=== PATIENT | female | born 1990 | race Caucasian/White ===

== ENCOUNTER 2017-01-17 18:11 | Emergency (ER) | payer MEDICAID ==
[~2017-01-17] VITALS: Ht 162.6 cm; Wt 59.0 kg
[~2017-01-17 18:11] MED LIST: AUGMENTIN 875 M1 TAB PO; BACTRIM DS 8001 TA1 PO; BACTRIM DS 8001 TAB PO; CIPRO 500MG TA500 MG PO; DIFLUCAN100 MG PO; FLINTSTONES1 CTB PO; IRON TABLETS325 MG PO; LORTAB 5/500 501 TAB PO; MACROBID 100MG100 MG PO; MOTRIN 400MG.400 MG PO; NICOTINE T21 MG/24 H TD; PERCOCET 5/3251 EACH PO; PHENERGAN 25MG.25 M1 PO; PRENATAL PLUS1 TA1 PO; PYRIDIUM 200MG200 MG PO; PYRIDIUM100 MG PO; SEPTRA DS 800 M1 TAB PO; SULFAMETHOXAZOL1 TA6 PO; TERAZOL 7 VAG C45 GM VG; UTIRA-C TABLET1 TAB PO; VIBRAMYCIN 100100 MG PO; ZOFRAN4 MG PO
--- NOTE | 2017-01-17 18:27 | Emergency Room Report ---
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 N Clinical Suspician of Infection? N Mental Status: 1 - Regular (Normal Baseline) Sepsis Risk:Low Sepsis Risk Have you (or family members/close friends) recently traveled outside the [place]? N If Yes, where/when: Have you had exposure to infectious disease within the past month? N TB? Other? Specify: Arterial vs. arterial bleeding to left wrist s/p accidental puncture wound to left forearm distally (volar aspect) while cleaning out vacuum with a knife. 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 She denies numbness or weakness. Arrives with well perfused hand but actively bleeding. Source patient, family ALLERGIES Coded Allergies: No Known Drug Allergies (09/23/15) History Medical History General CAD? No Angina: No AL: No Hypertension? No Hyperlipidemia? No CHF? No DVT? No PE? No COPD? No Asthma? No Anemia? No GERD? No Gastric ulcers? No GI Bleed? No Hernia? No Thyroid Problems? No Hypothyroidism? No CVA? No Seizures? No Diabetes? No Renal Insuffiency? No End Stage Renal Disease? No UTI? Yes Stones? No BPH? No GB Disease: No Nephritic Syndrome? No Asplenia? No Hepatitis? No Sickle Cell Disease? No Arthritis? No Migraines? No Cataracts? No Glaucoma? No MRSA? No HIV? No TB? No Anxiety? No Depression? No Cancer? 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 No: respiratory distress. Cardiovascular no peripheral edema, normal peripheral pulses Extremities normal range of motion, Pulsatile bleeding to left forearm from a one cm wide puncture wound. No obvious tendon exposure but field too bloody to determine actual depth of wound. No obvious bone exposure. No FB or debris. Distally, digits are well perfused, CR brisk, radial pulse is full. Pressure applied immediately by MD on exam. Strength 5 Upper Ext (L), 5 Upper Ext (R), 5 Lower Ext (L), 5 Lower Ext (R) Neurologic alert, normal exam, no motor/sensory deficits, oriented x 3 Glascow Coma Scale Glascow Coma Scale Response Value EYE response: 4 Spontaneously 4 MOTOR response: 6 OBEYS 6 VERBAL response: 5 Oriented & Converses 5 Total 15 Skin intact (see above) Medical Decision Making LABS/Meds/Orders Pt receiving controlled substance in ED? No Results/Orders Current Medication Orders Sig/Pipe Start time Last Medication Dose Route Stop Time Status Admin Lactated Ringer's 1,000 ML .Q1H1M 01/17 1845 AC IV 01/17 1945 Morphine Sulfate 4 MG ONCE ONE 01/17 1845 DC IV 01/17 1846 Ondansetron HCl 4 MG ONCE ONE 01/17 1845 DC IV 01/17 1846 Sodium Chloride 10 ML PRN PRN 01/17 1845 AC IV 01/18 1841 Sodium Chloride 1,000 ML .Q1H1M 01/17 1845 CAN IV 01/17 1945 Sodium Chloride 10 ML PRN PRN 01/17 1845 DC IV 01/18 1841 Lactated Ringer's 1,000 ML .STK-MED ONE 01/17 1837 DC IV Morphine Sulfate 0 .STK-MED ONE 01/17 1837 DC .ROUTE Ondansetron HCl 0 .STK-MED ONE 01/17 1837 DC .ROUTE Lidocaine/Epinephrine 0 .STK-MED ONE 01/17 1826 DC .ROUTE Consult MD Physician Consult Consult/PCP Dr. Villa with Hand surgery accepting. States d/c tqt; no closure Time Called 1826 Reason Transfer to facility [facility] Progress Notes Date 01/17/17 Time 1846 Comment Bandage loosened as bleeding well controlled now and c/o numbness diffusely; fingers are well perfused with brisk CR prior to transfer with good ROM. Procedures Laceration/Wound Repair Progress Tqt applied by staff was removed by MD prior to transfer, and MD applied trauma four by fours with trauma dressings, Kerlix and Coban. Fingers well perfused with palpable radial pulse; brisk CR, fully sensate. Bleeding controlled. SBP 114, HR in the 80's, IVF, Morphine for pain with Zofran, transfer to via ground ambulance. Departure Departure Time of Disposition 1836 Disposition DC/XFER from ER to [facility] Clinical Impression Primary Impression: Injury of radial artery at forearm level Qualifiers: Encounter type: initial encounter Laterality: left Qualified Code: S55.102A - Unspecified injury of radial artery at forearm level, left arm, initial encounter Secondary Impressions: Puncture wound of forearm, complicated Qualifiers: Encounter type: initial encounter Laterality: left Qualified Code: S51.832A - Puncture wound without foreign body of left forearm, initial encounter Condition STABLE ED Critical Care Critical Care No
--- NOTE | 2017-01-17 18:27 | Emergency Room Report ---
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 N Clinical Suspician of Infection? N Mental Status: 1 - Regular (Normal Baseline) Sepsis Risk:Low Sepsis Risk Have you (or family members/close friends) recently traveled outside the [place]? N If Yes, where/when: Have you had exposure to infectious disease within the past month? N TB? Other? Specify: Arterial vs. arterial bleeding to left wrist s/p accidental puncture wound to left forearm distally (volar aspect) while cleaning out vacuum with a knife. 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 She denies numbness or weakness. Arrives with well perfused hand but actively bleeding. Source patient, family ALLERGIES Coded Allergies: No Known Drug Allergies (09/23/15) History Medical History General CAD? No Angina: No NC: No Hypertension? No Hyperlipidemia? No CHF? No DVT? No PE? No COPD? No Asthma? No Anemia? No GERD? No Gastric ulcers? No GI Bleed? No Hernia? No Thyroid Problems? No Hypothyroidism? No CVA? No Seizures? No Diabetes? No Renal Insuffiency? No End Stage Renal Disease? No UTI? Yes Stones? No BPH? No GB Disease: No Nephritic Syndrome? No Asplenia? No Hepatitis? No Sickle Cell Disease? No Arthritis? No Migraines? No Cataracts? No Glaucoma? No MRSA? No HIV? No TB? No Anxiety? No Depression? No Cancer? 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 No: respiratory distress. Cardiovascular no peripheral edema, normal peripheral pulses Extremities normal range of motion, Pulsatile bleeding to left forearm from a one cm wide puncture wound. No obvious tendon exposure but field too bloody to determine actual depth of wound. No obvious bone exposure. No FB or debris. Distally, digits are well perfused, CR brisk, radial pulse is full. Pressure applied immediately by MD on exam. Strength 5 Upper Ext (L), 5 Upper Ext (R), 5 Lower Ext (L), 5 Lower Ext (R) Neurologic alert, normal exam, no motor/sensory deficits, oriented x 3 Glascow Coma Scale Glascow Coma Scale Response Value EYE response: 4 Spontaneously 4 MOTOR response: 6 OBEYS 6 VERBAL response: 5 Oriented & Converses 5 Total 15 Skin intact (see above) Medical Decision Making LABS/Meds/Orders Pt receiving controlled substance in ED? No Results/Orders Current Medication Orders Sig/Pipe Start time Last Medication Dose Route Stop Time Status Admin Lactated Ringer's 1,000 ML .Q1H1M 01/17 1845 AC IV 01/17 1945 Morphine Sulfate 4 MG ONCE ONE 01/17 1845 DC IV 01/17 1846 Ondansetron HCl 4 MG ONCE ONE 01/17 1845 DC IV 01/17 1846 Sodium Chloride 10 ML PRN PRN 01/17 1845 AC IV 01/18 1841 Sodium Chloride 1,000 ML .Q1H1M 01/17 1845 CAN IV 01/17 1945 Sodium Chloride 10 ML PRN PRN 01/17 1845 DC IV 01/18 1841 Lactated Ringer's 1,000 ML .STK-MED ONE 01/17 1837 DC IV Morphine Sulfate 0 .STK-MED ONE 01/17 1837 DC .ROUTE Ondansetron HCl 0 .STK-MED ONE 01/17 1837 DC .ROUTE Lidocaine/Epinephrine 0 .STK-MED ONE 01/17 1826 DC .ROUTE Consult MD Physician Consult Consult/PCP Dr. Villa with Hand surgery accepting. States d/c tqt; no closure Time Called 1826 Reason Transfer to facility [facility] Progress Notes Date 01/17/17 Time 1846 Comment Bandage loosened as bleeding well controlled now and c/o numbness diffusely; fingers are well perfused with brisk CR prior to transfer with good ROM. Procedures Laceration/Wound Repair Progress Tqt applied by staff was removed by MD prior to transfer, and MD applied trauma four by fours with trauma dressings, Kerlix and Coban. Fingers well perfused with palpable radial pulse; brisk CR, fully sensate. Bleeding controlled. SBP 114, HR in the 80's, IVF, Morphine for pain with Zofran, transfer to via ground ambulance. Departure Departure Time of Disposition 1836 Disposition DC/XFER from ER to [facility] Clinical Impression Primary Impression: Injury of radial artery at forearm level Qualifiers: Encounter type: initial encounter Laterality: left Qualified Code: S55.102A - Unspecified injury of radial artery at forearm level, left arm, initial encounter Secondary Impressions: Puncture wound of forearm, complicated Qualifiers: Encounter type: initial encounter Laterality: left Qualified Code: S51.832A - Puncture wound without foreign body of left forearm, initial encounter Condition STABLE ED Critical Care Critical Care No
--- OUTSIDE RECORDS SUMMARY | 2017-01-17 18:41 | External Medical Summary Rpt | CCD ---
Author Author , REJI Organization REJI Address Unknown Phone [email or web address] Care Team Providers Care Claims Specialist Name Role Phone Cipriano Brown MD, Unavailable Unavailable PEDRO Leung MD, TAY, Unavailable Unavailable JUAN ALBERTO WAYNE Unavailable Unavailable [facility] Unavailable Unavailable DEPARTMENT, [facility] DEPART[facility] Unavailable Unavailable DEPARTMENT, [facility] DEPARTMENT [facility] Unavailable Unavailable [facility], [facility] LARISSA STEPHENSON Unavailable Unavailable LARISSA KAY Unavailable Unavailable RIMMA [facility] Unavailable Unavailable SERVICE, [facility] Unavailable Unavailable SERVICE, [facility] ETHAN BENIGNO, ETHAN Unavailable Unavailable BENIGNO SEDRICK DUBOSE Unavailable Unavailable NAN GOYALE Unavailable Unavailable MARGARITA NAN GOYALE Unavailable Unavailable BEATRIZ BIRD, Unavailable Unavailable BEATRIZ DUBOSE [facility], Unavailable Unavailable [facility] Unavailable Unavailable [place], [facility] Unavailable Unavailable [facility] Unavailable Unavailable LAB, [facility] SWARTZ PRISCILA, SWARTZ PRISCILA Unavailable Unavailable ANA, AVERY, Unavailable Unavailable ANA, [facility] Unavailable [facility]available [facility], Unavailable [facility]available [facility] Beatriz Dubose MD, Unavailable Unavailable Beatriz Dubose MD [facility] Unavailable Unavailable [place], [facility] [place] [facility] Unavailable Unavailable [place], [facility] NATASHA PELAEZ, NATASHA Unavailable Unavailable BENIGNO STARR GUTHRIE, Unavailable Unavailable STARR GUTHRIE MD, Unavailable Unavailable JOS CISNEROS MD Unavailable Unavailable [facility] Unavailable Unavailable [place], [facility] Unavailable Unavailable CENTER, [facility] Unavailable Unavailable INC, [facility] CORDERO JOSE, Unavailable Unavailable CORDERO JOSE CORDERO JOSE, Unavailable Unavailable CORDERO JOSE GONZÁLES JOURDAN, GONZÁLES JOURDAN Unavailable Unavailable GONZÁLES JOURDAN, GONZÁLES JOURDAN Unavailable Unavailable [facility], Unavailable Unavailable [facility] JEN JAY, Unavailable Unavailable JEN JYA MD, Unavailable Unavailable RIGO Moreira MD Unavailable Unavailable [facility], Unavailable Unavailable [facility] RODRIGUEZ, SHIELA L, Unavailable Unavailable RODRIGUEZ, SHIELA L TIN BARRERA, Unavailable Unavailable TIN BARRERA QUINTERO MAYNOR, QUINTERO Unavailable Unavailable MAYNOR Dean Guthrie MD, Unavailable Unavailable Dean Guthrie MD [facility], Unavailable Unavailable [facility] Unavailable Unavailable SERVICES, [facility] KADEN MCBRIDE, KADEN MCBRIDE Unavailable Unavailable Michael GAINES, Unavailable Unavailable Michael GAINES [facility] PRISCILA SWARTZ MD Unavailable Unavailable CONSULTING [facility], PRISCILA SWARTZ MD CONSULTING [facility] Unavailable Unavailable EMS, [facility] Unavailable Unavailable EMS, [facility], Unavailable Unavailable [facility], [facility] Unavailable Unavailable LAB, [facility] FERN JACOBSEN PERRY, Unavailable Unavailable [facility] WILLETT [facility], Unavailable Unavailable [facility], Unavailable Unavailable [facility], [id number], Unavailable Unavailable [id number] Unavailable Unavailable [id number] [address] [id number], [facility] [address] [address] [id number] [facility], Unavailable Unavailable [facility] REBECA CRISTY, Unavailable Unavailable SCHULSTAD, CRISTY JENA DALE, JENA DALE Unavailable Unavailable SOKAN BAB, SOKAN BAB Unavailable Unavailable SOTINGEANU ANISA, Unavailable Unavailable SOTINGEANU AN[facility] ROMULOANNA ESTRADA, Unavailable Unavailable ANNA SEBASTIAN, Unavailable Unavailable [facility] OLMOS, LUCRETIA Unavailable Unavailable NICKOLAS [facility], [facility] Unavailable Unavailable [facility] Unavailable Unavailable #591, [facility] # Unavailable Unavailable [id number], [facility] # [id number] MAINE JONES, MAINE JONES Unavailable Unavailable MAURICIO MARIANO, Unavailable Unavailable MAURICIO MARIANO, ANIKA Unavailable Unavailable [facility] Unavailable Unavailable [facility] [place], [facility] [place] Purpose Continuity of Care Document - 04-21-2007 through 2016 Problems Code Diagnosis DOS Provider Status [id number] HIGH RISK 06-08-2016 [facility] L [facility] [id number] UNS OPEN 09-23-2015 [facility], TOES PLLC W/DAMAGE NAIL INITIAL R1030 LOWER 06-11-2015 [facility] ABDOMINAL [facility], PAIN PLLC UNSPECIFIED Z720 TOBACCO USE 06-11-2015 [facility] Z23 ENCOUNTER 04-22-2015 [facility] IMMUNIZATIO DEPARTMENT N 74263 PAIN IN 11-22-2014 [facility] [place] [facility] ANKLE AND FOOT 35175 UNSPECIFIED 11-22-2014 [facility] SITE OF N EMERGENCY ANKLE PHYS SPRAIN AND STRAIN E8859 FALL FROM 11-22-2014 [facility] OTHER N EMERGENCY SLIPPING PHYS TRIPPING OR STUMBLING 59444 PREV C/S 05-13-2014 [facility] DELIV DELIV PHYSICIANS W/WO GROUP MENTION ANTPRTM COND 74583 C/S DELIV 05-13-2014 [facility] W/O INDICAT PHYSICIANS DELIV W/WO GROUP ANTPRTM COND V252 STERILIZATI 05-13-2014 [facility] ON PHYSICIANS GROUP V270 OUTCOME OF 05-13-2014 [facility] DELIVERY PHYSICIANS SINGLE GROUP LIVEBORN 06987 THREATENED 05-10-2014 [facility] PREMATURE PHYSICIANS LABOR GROUP ANTEPARTUM V221 SUPERVISION 04-18-2014 [facility] [place] [address] ABNORMAL 03-08-2014 [facility] MATERNAL PHYSICIANS GLUCOSE GROUP TOLERANCE ANTEPARTUM 04060 OTHER 02-15-2014 SEKOU ARGUELLO MD LABOR, ANTEPARTUM 650 NORMAL 02-14-2014 [facility] V154 PERS HX 01-26-2014 [facility] AL TRAUMA PRS [facility] 5990 URINARY 01-18-2014 [facility]CT [facility]ICIANS INFECTION LA SITE NOT SPECIFIED 7881 DYSURIA 01-09-2014 [facility] V0481 NEED 01-09-2014 [facility] VACCINATION PS &INOCULATIO N FLU V283 ENCOUNTER 01-02-2014 [facility] ROUTINE SCREEN MALFORMATIO N ULTRASONIC 2768 HYPOPOTASSE 12-20-2013 [facility] PHYS 2859 UNSPECIFIED 12-20-2013 [facility] N EMERGENCY PHYS 18108 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 75211 MATERNAL 12-20-2013 [facility], N EMERGENCY ANTEPARTUM PHYS 63333 ABDOMINAL 12-20-2013 [facility] PAIN, N EMERGENCY PERIUMBILIC PHYS 86537 PAP SMER 12-10-2013 [facility] C[facility] W/ATYPICAL SQUAMOUS CELLS UNDET 37039 CERV HIGH 12-10-2013 [facility] RISK [facility] PAPILLOMAVI GINA DNA TEST POS V7242 12-10-2013 SEDRICK [facility] EXAMINATION OR TEST POSITIVE RESULT V745 SCREENING 12-10-2013 [facility] EXAMINATION LLC FOR VENEREAL DISEASE V2503 ENCOUNTER 11-15-2013 [facility] CONTRACEPT DEPARTMENT CNSL&PRESCR IPTION 6970 CONTACT 08-08-2013 LARISSA SHANKS DERMATITIS& OTHER ECZ[place] DUE UNSPEC CAUSE 7869 OTHER AND 07-18-2013 [facility] HYPERLIPIDE SYLVESTER 4011 ESSENTIAL 07-18-2013 [place] HYPERTENSIO [facility] N, [facility] 53072 OTHER 07-18-2013 [place] [facility] V242 ROUTINE 07-18-2013 [facility] FOLLOW-UP V2502 GENERAL 07-18-2013 [facility] CNSL HEALTH INITIATION DEPARTMENT OTH CONTRACEPT MEASURES V2689 OTHER 07-18-2013 [facility] SPECIFIED HEALTH PROCREATIVE DEPARTMENT MANAGEMENT 7245 UNSPECIFIED 03-30-2013 RIGO LYNN BACKACHE 8472 LUMBAR 03-30-2013 [facility] STRAIN STEVEN 9599 INJURY 03-30-2013 RIGO LYNN OTHER AND UNSPECIFIED UNSPECIFIED SITE V692 PROBLEMS 01-23-2013 [facility] RELATED TO HIGH-RISK SEXUAL BEHAVIOR 654.21 654.21 PREV 01-11-2013 [facility] MENT ANTEPART COND V27.0 V27.0 01-11-2013 [facility] LIVEBORN 16770 MATERNAL RX 12-26-2012 [facility] HEALTH COMPL PG CLINIC OF CB/PP [place]NS [place] EOC 616.10 616.10 09-26-2012 [place] VAGINITIS [facility] 57808 UNSPECIFIED 09-26-2012 [facility] VULVOVAGINI TIS 646.63 646.63 09-26-2012 [place] INFECTION-A [place] [address] INFECTIONS 09-26-2012 [facility] GENITOURINA INC RY TRACT ANTEPARTUM 75993 OTH CURRENT 09-26-2012 [facility] CLASSIFIABL SERVICES E ELSW ANTPRTM 692.71 692.71 09-06-2012 [facility] 57986 CONTACT 09-06-2012 [facility] DERMATITIS& EMERGENCY OTHER SERVICES ECZEMA DUE TO SUNBURN 643.03 643.03 MILD 06-17-2012 [facility] HYPEREMESIS [facility] -ANTEPAR 51952 MILD 06-17-2012 [facility]PEREMESIS EMERGENCY GRAVIDARUM SERVICES UNSPEC EPIS CARE 47579 MILD 06-17-2012 [facility] HOSP GRAVIDARUM INC ANTEPARTUM 39957 OTHER 05-25-2012 [facility] HEALTH COMPLICATIO CLINIC OF N [place] ANTEPARTUM 02996 PAP SMER 05-17-2012 PATHOLOGY & CERV W/LW CYTOLOGY GRADE LAB SQUAMOUS INTRAEPITH LES 2662 OTHER 02-08-2011 [facility]X [facility] DEFICIENCIE CENTER S V016 CONTACT 02-08-2011 [facility] WITH OR HEALTH EXPOSURE TO CENTER VENEREAL DISEASES V5869 LONG-TERM 01-28-2011 PRISCILA SWARTZ (CURRENT) USE OF CONSULTING OTHER SRV MEDICATIONS 5206 DISTURBANCE 11-11-2010 CONSUELO Barnes IN TOOTH JOSE ERUPTION 5952 UNSPECIFIED 08-15-2010 [facility] 87188 OPEN WOUND 06-28-2010 [facility] LIP WITHOUT EMERGENCY MENTION SERVICES COMPLICATIO N E9060 DOG BITE 06-28-2010 [facility] 462 ACUTE 01-05-2010 [facility]NG[facility] MEM HOSP INC V069 NEED PROPH 12-10-2009 [facility] W/UNSPEC CENTER COMB VACCINE 7048 OTHER 08-14-2009 PRAVEENA BARRERA DISEASE OF HAIR&HAIR FOLLICLES 6262 EXCESSIVE 03-24-2009 [facility] OF MENSTRUATIO GERI N [facility] 1320 PEDICULUS 11-11-2008 TIERA BARRERA 5589 OTH&UNSPEC 04-01-2008 [facility] NONINFECTIO [facility] GASTROENTER ITIS&COLITI S 57591 ABDOMINAL 04-01-2008 [place] [facility] V251 ENCOUNTER 02-12-2008 [facility] INSERT/[facility] JULES IU CLINIC OF CONTRACEPTI CYNRICARDO VE DEVICE [facility] V7231 ROUTINE 02-02-2008 [facility] GYNECOLOGIC HEALTH AL CLINIC OF EXAMINATION [place] [facility] V7388 SPECIAL SCR 02-02-2008 [facility] [place] [facility] EXAMINATION OTH SPEC CHLAMYDIAL DZ V762 SCREENING 02-02-2008 [facility] [place] [facility] MALIGNANT NEOPLASM OF THE CERVIX 61058 OTHER 12-01-2007 [facility] MATERNAL ANESTH OF VENEREAL THE DISEASES [facility] WITH DELIVERY 47033 OTH SPEC 12-01-2007 [facility] INDICAT HEALTH CARE/INTERV CLINIC OF EN RELATED [place] L&D DELIV [facility] V220 SUPERVISION 12-01-2007 [facility]EN[facility] OF NORMAL HEALTH FIRST CLINIC OF [place] [facility] V3000 SINGLE 12-01-2007 [facility] W/O 02618 POOR 11-09-2007 [facility] OF ANTPRTM [place] COND/COMP PLL 61872 SPOTTING 05-04-2007 [facility] COMP [facility]ALTH CLIN[facility] OF ANTEPARTUM [place] COND/COMP PLL 71509 UNSPECIFIED 04-29-2007 [facility] INFECTION HOSPITAL IN CCE & UNS SITE V222 04-29-2007 [facility] Allergies, Adverse Reactions, Alerts Type Allergy to substance Drug Allergy Adverse Reaction to Substance Substance Reaction Severity INGREDIENT: NO KNOWN Unknown Unknown - NO KNOWN DRUG ALLERGY No Known Allergies - Unknown Mild Nka No Known Drug Unknown Unknown Allergies Medications Na ND Rx Da Fi Fi Am Da Di Ph RX Ph St me C No te ll ll ou ys ag ar # ys at rm s nt no ma ic us Or Da si cy ia de te s n re d CL 16 07 08 30 30 00 RI Ac ON 72 -0 -1 .0 00 TE ti AZ 90 6- 1- 00 01 ve EP 13 20 20 18 AI AM 60 17 17 79 D 0 27 PH 0. AR 5 MA MG CY TA #3 BL 93 ET 8 ES 65 06 07 30 30 00 RI Ac CI 86 -0 -0 .0 00 TE ti TA 20 6- 7- 00 01 ve LO 37 20 20 18 AI ME 40 17 17 68 D AM 1 27 PH AR 10 MA CY MG #3 TA 93 BL 8 ET CL 16 06 07 60 30 00 RI Ac ON 72 -0 -0 .0 00 TE ti AZ 90 6- 7- 00 01 ve EP 13 20 20 18 AI AM 60 17 17 68 D 0 29 PH 0. AR 5 MA MG CY TA #3 BL 93 ET 8 AZ 59 03 04 2. 1 00 WA Ac IT 76 -1 -1 00 00 L- ti HR 23 4- 4- 0 07 MA ve OM 07 20 20 47 RT YC 00 17 17 63 IN 2 43 PH AR 50 MA 0 CY MG #5 TA 91 BL ET KE 00 10 1 No TO 09 -1 RO 30 6- Lo LA 31 20 ng C 40 13 er 10 1 Ac MG ti ve TA BL ET CE 00 10 0 No FA 40 -1 ZO 92 4- Lo LI 58 20 ng N 50 13 er 1 1 GM Ac ti AD ve D- VA N AL SO 00 10 1 No DI 40 -1 UM 97 4- Lo 98 20 ng CH 43 13 er LO 7 RI Ac DE ti ve 0. 9% SO FLORY TI ON LA [address] 40 -1 AT 97 4- Lo ED 95 20 ng 30 13 er RI 9 NG Ac ER ti S ve IN JE CT IO N MA 00 10 3 No PA 90 -1 P 41 4- Lo 32 98 20 ng 5 26 13 er MG 1 Ac TA ti BL ve ET LA 20 10 3 No NO 45 -1 LI 18 4- Lo N 71 20 ng CR 22 13 er EA 6 M Ac 56 ti GM ve Mo 00 10 3 No rp 40 -1 hi 91 4- Lo ne 25 20 ng 83 13 er 4M 0 G/ Ac Ml ti ve Sy ri ng e OX 00 10 3 No YC 40 -1 OD 60 4- Lo ON 55 20 ng E 26 13 er HC 2 L Ac 5 ti MG ve TA BL ET SE 67 10 3 No NO 61 -1 KO 80 4- Lo T- 31 20 ng S 00 13 er TA 1 BL Ac ET ti ve LA 59 10 0 No SO 76 -1 ME 25 4- Lo OS 00 20 ng TO 80 13 er L 1 20 Ac 0 ti MC ve G TA BL ET KE 00 10 2 No TO 40 -1 RO 93 4- Lo LA 79 20 ng C 50 13 er 30 1 Ac MG ti /M ve L AL NI 00 10 3 No CO 06 -1 TI 75 4- Lo NE 12 20 ng 61 13 er 21 4 Ac MG ti /2 ve 4H R PA TC H TY 50 06 0 No LE 58 -1 NO 00 2- Lo L 45 20 ng EX 10 13 er -S 3 TR Ac ti 50 ve [address] ET ON 00 03 0 No DA 64 -2 NS 16 3- Lo ET 08 20 ng RO 02 13 er N 5 HC Ac L ti 4 ve MG /2 ML AL OX 00 08 08 20 3 RI 89 HE Ac YC 60 -1 -1 .0 TE 53 ND ti OD 34 7- 7- 00 81 ER ve ON 99 20 20 AI SO E- 82 11 11 D N AC 1 PH RO ET AR BE AM MA RT IN CY W OP HE 03 N 93 5- 8 32 # 5 03 93 ME 00 08 08 21 6 RI 89 HE Ac ED 60 -1 -1 .0 TE 53 ND ti NI 35 7- 7- 00 82 ER ve SO 33 20 20 AI SO NE 71 11 11 D N 5 5 PH RO AR BE MG MA RT CY W TA BL 03 ET 93 8 # 03 93 AM 00 08 08 15 5 RI 89 HE Ac OX 78 -1 -1 .0 TE 53 ND ti IC 12 7- 7- 00 83 ER ve IL 61 20 20 AI SO LI 30 11 11 D N N 5 PH RO 50 AR BE 0 MA RT MG CY W CA 03 PS 93 UL 8 E # 03 93 64 05 05 6. 2 RI 88 CH Ac 37 -2 -2 00 TE 41 ES ti 60 1- 1- 0 66 TN ve 81 20 20 AI UT 20 11 11 D 1 PH LA AR CH MA AE CY L 03 93 8 # 03 93 MARCANO 53 05 05 10 5 RI 88 CH Ac LF 74 -2 -2 .0 TE 41 ES ti AM 60 1- 1- 00 67 TN ve ET 27 20 20 AI UT HO 20 11 11 D XA 5 PH LA ZO AR CH LE MA AE -T CY L MP 03 DS 93 8 TA # BL 03 ET 93 AM 00 04 04 20 10 RI 87 GA Ac OX 09 -0 -0 .0 TE 77 IN ti -C 32 3- 4- 00 69 EY ve LA 27 20 20 AI V 53 11 11 D LA 87 4 PH CH 5- AR AE 12 MA L 5 CY S MG 03 TA 93 BL 8 ET # 03 93 00 05 01 3 15 3 WA 70 LO Ac 18 -2 -2 .0 L- 71 RE ti 50 0- 2- 00 MA 43 NZ ve 61 20 20 RT 6 O 30 10 11 JASON 1 PH SE AR T MA CY # 10 05 91 00 05 01 3 15 3 WA 70 JASON Ac 18 -2 -2 .0 L- 71 SE ti 50 0- 2- 00 MA 43 ve 61 20 20 RT 6 T. 30 10 11 1 PH LO AR RE MA NZ CY O # MD 10 JASON 05 SE 91 MARCANO 53 09 09 0 10 5 EA 18 SO Ac LF 74 -0 -[address] 96 KA ti AM 60 2- 2- 00 SI 71 N ve ET 27 20 20 DE BA HO 20 10 10 BA XA 5 PH TU ZO AR ND LE MA E -T CY O MP OF DS CY TA NT BL HI ET AN A 55 09 09 0 9. 3 EA 18 SO Ac 56 -0 -[address] 96 KA ti 68 2- 2- 0 SI 72 N ve 10 20 20 DE BA 10 10 10 BA 1 PH TU AR ND MA E CY O OF CY NT HI AN A 63 06 06 0 3. 3 EA 18 GA Ac 30 -2 -[address] 12 IN ti 40 6- 6- 0 SI 88 EY ve 80 20 20 DE 43 10 10 LA 0 PH CH AR AE MA L CY S OF CY NT HI AN A DO 53 06 06 0 14 7 EA 18 GA Ac XY 48 -2 -[address] 12 IN ti CY 90 6- 6- 00 SI 89 EY ve CL 11 20 20 DE IN 90 10 10 LA E 5 PH CH HY AR AE CL MA L AT CY S E 10 OF 0 MG CY NT CA HI P AN A 00 05 06 3 15 3 WA 70 LO Ac 18 -2 -0 .0 L- 71 RE ti 50 0- 3- 00 MA 43 NZ ve 61 20 20 RT 6 O 30 10 10 JASON 1 PH SE AR T MA CY # 10 05 91 00 05 06 3 15 3 MD 70 JASON Ac 18 -2 -0 .0 L- 71 SE ti 50 0- 3- 00 MA 43 ve 61 20 20 RT 6 T. 30 10 10 1 PH LO AR RE MA NZ CY O # MD 10 JASON 05 SE 91 00 05 05 3 15 3 MD 70 JASON Ac 18 -2 -2 .0 L- 71 SE ti 50 0- 0- 00 MA 43 ve 61 20 20 RT 6 T. 30 10 10 1 PH LO AR RE MA NZ CY O # MD 10 JASON 05 SE 91 CE 68 05 05 0 28 7 MD 70 LO Ac PH 18 -2 -2 .0 L- 71 RE ti AL 00 0- 0- 00 MA 43 NZ ve EX 12 20 20 RT 5 O IN 20 10 10 JASON 1 PH SE 50 AR T 0 MA MG CY # CA PS 10 UL 05 E 91 00 05 05 3 15 3 MD 70 LO Ac 18 -2 -2 .0 L- 71 RE ti 50 0- 0- 00 MA 43 NZ ve 61 20 20 RT 6 O 30 10 10 JASON 1 PH SE AR T MA CY # 10 05 91 NA 00 12 12 00 60 30 RI 81 CL Ac ME 09 -2 -3 .0 TE 45 AR ti OX 30 4- 1- 00 23 KE ve EN 14 20 20 AI 90 09 09 D DE 50 1 PH RE 0 AR K MG M J #3 TA 93 BL 8 ET 00 12 12 00 28 28 RI 81 CL Ac 43 -2 -3 .0 TE 45 AR ti 00 4- 1- 00 22 KE ve 48 20 20 AI 21 09 09 D DE 4 PH RE AR K M J #3 93 8 00 12 12 00 14 7 EA 15 GA Ac 90 -0 -[address] 36 IN ti 42 1- 7- 00 SI 64 EY ve 72 20 20 DE 54 09 09 LA 0 PH CH AR AE MA L CY S OF CY NT HI AN A 65 12 12 00 9. 3 EA 15 GA Ac 16 -0 -[address] 36 IN ti 20 1- 7- 0 SI 63 EY ve 52 20 20 DE 01 09 09 LA 0 PH CH AR AE MA L CY S OF CY NT HI AN A PE 00 08 08 00 59 1 RI 79 JASON Ac RM 47 -1 -2 .0 TE 59 SE ti ET 25 7- 7- 00 66 ve HR 24 20 20 AI T. IN 26 09 09 D 7 PH LO 1% AR RE M NZ LO #3 O TI 93 MD ON 8 JASON SE CI 00 01 01 00 20 10 RI 76 WI Ac ME 17 -0 -1 .0 TE 54 CK ti OF 25 5- 5- 00 72 ER ve LO 31 20 20 AI XA 26 09 09 D JE CI 0 PH FF N AR RE HC M Y L #3 50 93 0 8 MG TA B 00 01 01 00 10 3 RI 76 WI Ac 40 -0 -1 .0 TE 54 CK ti 60 5- 5- 00 71 ER ve 35 20 20 AI 70 09 09 D JE 5 PH FF AR RE M Y #3 93 8 NA 00 12 01 00 60 30 RI 76 CL Ac ME 09 -1 -0 .0 TE 31 AR ti OX 30 8- 1- 00 05 KE ve EN 14 20 20 AI 90 08 09 D DE 50 1 PH RE 0 AR K MG M J #3 TA 93 BL 8 ET LA 50 09 10 00 1. 1 TH 22 CL Ac RE 41 -2 -0 00 ER 32 AR ti NA 90 5- 9- 0 A 12 KE ve 42 20 20 CO 0 SY 10 [address] 1 IN RE EM C K J 00 09 09 00 30 5 RI 74 CL Ac 40 -1 -2 .0 TE 94 AR ti 60 2- 6- 00 06 KE ve 35 20 20 AI 70 08 08 D DE 5 PH RE AR K M J #3 93 8 53 09 09 00 40 6 WA 69 CL Ac 74 -0 -2 .0 L- 86 AR ti 60 8- 6- 00 MA 41 KE ve 13 20 20 RT 7 10 08 08 DE 5 PH RE AR K MA J CY #5 91 OX 00 09 09 00 30 5 WA 22 CL Ac YC 40 -0 -2 .0 L- 14 AR ti OD 60 8- 6- 00 MA 87 KE ve ON 51 20 20 RT 9 E- 20 08 08 DE AC 1 PH RE ET AR K AM MA J IN CY OP HE #5 N 91 5- 32 5 FE 00 06 06 00 30 30 WA 88 CL Ac RR 67 -0 -1 .0 L- 12 AR ti OU 70 5- 2- 00 MA 33 KE ve S 07 20 20 RT 0 MARCANO 01 08 08 DE LF 0 PH RE AT AR K E MA J 32 CY 5 MG #5 91 TA BL ET NI 00 05 05 00 14 7 EA 97 No Ac TR 18 -1 -[address] 97 t ti OF 50 3- 2- 00 SI 39 Av ve UR 12 20 20 DE ai AN 20 08 08 la TO 1 PH bl IN AR e MA MO CY NO -M OF CR CY NT 10 HI 0 AN MG A 59 03 04 00 30 30 WA 69 No Ac 63 -0 -0 .0 L- 62 t ti 00 MA 68 Av ve 41 20 20 RT 2 ai 43 08 08 la 5 PH bl AR e MA CY #5 91 Immunization Name Date Rout CVX Reac Dose Comm Prov Is Faci e tion ent ider Refu lity Give sed n IIV4 03-29 158 BOUR No BOUR 6-20 [place] VACC 16 CO CO HEAL HEAL SPLI TH TH T DEPA DEPA VIRU RTME RTME S NT NT 0.5 ML DOS FOR IM USE IIV3 12-26 141 BROD No PRIM 5-20 KENDRICK OUMAR VACC 14 RIMMA HEAL INE TH SPLI ASSO T CIAT VIRU ES S PS 0.5 ML DOSA GE IM USE IIV3 01-26 141 MARIPOSA No DHS/ 0-20 [place] CO VACC 08 CO HEAL INE HEAL TH SPLI TH CENT T CENT RAL VIRU ER BANK S 0.5 ACCT ML DOSA GE IM USE Vital Signs 09-26-2012 21:04 Name Value Interpretat Reference Comment ion Range BP 70 mm[Hg] Diastolic BP Systolic 124 mm[Hg] Heart 68 /min Rate/Pulse O2% 98 % Respiratory 18 /min Rate 09-26-2012 19:56 Name Value Interpretat Reference Comment ion Range Heart 84 /min Rate/Pulse O2% 98 % Respiratory 16 /min Rate 09-26-2012 19:52 Name Value Interpretat Reference Comment ion Range BP 60 mm[Hg] Diastolic BP Systolic 108 mm[Hg] 09-06-2012 11:10 Name Value Interpretat Reference Comment ion Range Body 98 [degF] Temperature BP 68 mm[Hg] Diastolic BP Systolic 101 mm[Hg] Heart 81 /min Rate/Pulse O2% 99 % Respiratory 18 /min Rate 06-17-2012 15:36 Name Value Interpretat Reference Comment ion Range BP 57 mm[Hg] Diastolic BP Systolic 118 mm[Hg] Heart 67 /min Rate/Pulse O2% 98 % Respiratory 20 /min Rate Results Labs Lab Lab Date Result Refere Interp Status Commen Order Detail nces retati t Range on pH BldCo (01-08-2013 09:45) pH 01-08- 7.36 7.35-7. complet BldCo 013 UNK 45 ed 09:45 BASIC METABOLIC PANEL (01-08-2013 07:40) Glucose 01-08- 77 74-106 complet 013 mg/dL ed Bld-mCn 07:40 c BUN 01-08-2 5 mg/dL 7-18 complet Bld-mCn 013 ed c 07:40 Creat 01-08-2 0.6 0.6-1.0 complet SerPl-m 013 mg/dL ed Cnc 07:40 ESTIMAT 01-08-2 153 50-200 complet ED 013 ML/MIN ed CREATIN 07:40 INE CLEARAN CE GFR 01-08- 127 59- complet (ESTIMA 013 ML/MIN ed PARMJIT) 07:40 Sodium 01-08-2 138 136-145 complet SerPl-s 013 mmoL/L ed Cnc 07:40 Potassi 01-08-2 3.9 3.5-5.1 complet um 013 mmoL/L ed SerPl-s 07:40 Cnc Chlorid 01-08-2 103 98-107 complet e 013 mmoL/L ed SerPl-s 07:40 Cnc CO2 01-08-2 26 21.0-32 complet SerPl-s 013 mmoL/L .0 ed Cnc 07:40 Calcium 01-08-2 8.5 8.5-10. complet 013 mg/dL 1 ed SerPl-m 07:40 Cnc CBC with AUTO DIFF (01-08-2013 07:40) WBC # 14-2 7.8 4.5-13. complet Bld 013 K/MM3 0 ed Auto 07:40 RBC # 14-2 5.10 4.2-5.4 complet Bld 013 M/mm3 ed Auto 07:40 Hgb 01-08-2 14.9 12.2-16 complet Bld-mCn 013 g/dL .2 ed c 07:40 Hct Fr 01-08-2 46.7 % 37.0-47 complet Bld 013 .0 ed 07:40 MCV RBC 01-08- 91.4 fl 82.2-97 complet 013 .8 ed 07:40 MCH RBC 01-08- 29.2 pg 27-31.2 complet Qn 013 ed Auto 07:40 MEAN 10-14-2 31.9 31.8-35 complet CORPUSC 013 g/dl .4 ed ULAR 07:40 HGB CONC RDW RBC 10-14-2 14.6 % 11.5-17 complet Auto 013 .5 ed 07:40 Platele 10-14-2 150 142-424 complet t Bld 013 K/mm3 ed Ql 07:40 Manual MEAN 10-14-2 9.6 fl 7.4-10. complet PLATELE 013 4 ed T 07:40 VOLUME Granulo 10-14-2 67.4 % 37.0-80 complet cytes 013 .0 ed Fr Bld 07:40 Auto LYMPH % 10-14-2 25.6 % 10-50.0 complet 013 ed 07:40 Monocyt 10-14-2 5.9 % 1.7-9.3 complet es Fr 013 ed Bld 07:40 Auto Eosinop 10-14-2 0.8 % 0.1-12. complet hil Fr 013 0 ed Bld 07:40 Auto Basophi 10-14-2 0.2 % 0.1-2.0 complet ls Fr 013 ed Bld 07:40 Auto Granulo 10-14-2 5.3 1.8-7.8 complet cytes # 013 K/mm3 ed Bld 07:40 Auto Lymphoc 10-14-2 2.0 0.7-4.5 complet ytes Fr 013 K/mm3 ed Bld 07:40 Auto Monocyt 10-14-2 0.5 0.1-1.0 complet es # 013 K/mm3 ed Bld 07:40 Auto Eosinop 10-14-2 0.1 0.0-0.4 complet hil # 013 K/mm3 ed Bld 07:40 Auto Basophi 10-14-2 0.0 0-0.2 complet ls # 013 K/MM3 ed Bld 07:40 Auto URINALYSIS/COMPLETE (01-08-2013 07:30) URINE 10-14-2 YELLOW YELLOW complet COLOR 013 ed 07:30 URINE 10-14-2 CLEAR CLEAR complet APPEARA 013 ed NCE 07:30 URINE 10-14-2 NEGATIV NEG complet GLUCOSE 013 E ed - 07:30 DIPSTIC K URINE 10-14-2 NEGATIV NEG complet BILIRUB 013 E ed IN - 07:30 DIPSTIC K URINE 10-14-2 NEGATIV NEG complet KETONE 013 E mg/dL ed 07:30 URINE 10-14-2 1.015 1.005-1 complet SPECIFI 013 UNK .030 ed C 07:30 GRAVITY URINE 10-14-2 NEGATIV NEG complet BLOOD 013 E ed 07:30 URINE 10-14-2 7.5 UNK 5.0-8.5 complet PH 013 ed 07:30 URINE 10-14-2 NEGATIV NEG complet PROTEIN 013 E mg/dL ed - 07:30 DIPSTIC K URINE 10-14-2 0.2 NEG complet UROBILI 013 E.U./dL ed NOGEN - 07:30 DIPSTIC K URINE 10-14-2 NEGATIV NEG complet NITRATE 013 E ed - 07:30 DIPSTIC K URINE 10-14-2 NEGATIV NEG complet LEUK 013 E ed ESTERAS 07:30 E URINE 10-14-2 OCC 0 complet RBC 013 rbc/hpf ed 07:30 URINE 10-14-2 OCC 0-5 complet SQUAMOU 013 #/hpf ed S CELLS 07:30 URINALYSIS/COMPLETE (09-26-2012 20:10) URINE 07-02-2 YELLOW YELLOW complet COLOR 013 ed 20:10 URINE 07-02-2 CLEAR CLEAR complet APPEARA 013 ed NCE 20:10 URINE 07-02-2 NEGATIV NEG complet GLUCOSE 013 E ed - 20:10 DIPSTIC K URINE 07-02-2 NEGATIV NEG complet BILIRUB 013 E ed IN - 20:10 DIPSTIC K URINE 07-02-2 NEGATIV NEG complet KETONE 013 E mg/dL ed 20:10 URINE 07-02-2 1.025 1.005-1 complet SPECIFI 013 UNK .030 ed C 20:10 GRAVITY URINE 07-02-2 NEGATIV NEG complet BLOOD 013 E ed 20:10 URINE 07-02-2 6.0 UNK 5.0-8.5 complet PH 013 ed 20:10 URINE 07-02-2 NEGATIV NEG complet PROTEIN 013 E mg/dL ed - 20:10 DIPSTIC K URINE 07-02-2 1.0 NEG complet UROBILI 013 E.U./dL ed NOGEN - 20:10 DIPSTIC K URINE 07-02-2 NEGATIV NEG complet NITRATE 013 E ed - 20:10 DIPSTIC K URINE 07-02-2 1+ NEG complet LEUK 013 ed ESTERAS 20:10 E URINE 07-02-2 5-10 0 complet RBC 013 rbc/hpf ed 20:10 URINE 07-02-2 3-5 O complet WBC 013 wbc/hpf ed 20:10 URINE 07-02-2 TNTC 0-5 complet SQUAMOU 013 #/hpf ed S CELLS 20:10 URINE 07-02-2 1+ O complet BACTERI 013 ed A 20:10 URINE 07-02-2 1+ OCC complet MUCUS 013 ed 20:10 URINALYSIS/COMPLETE (06-17-2012 14:50) URINE 03-23-2 YELLOW YELLOW complet COLOR 013 ed 14:50 URINE 03-23-2 Sl CLEAR complet APPEARA 013 Cloudy ed NCE 14:50 URINE 03-23-2 NEGATIV NEG complet GLUCOSE 013 E ed - 14:50 DIPSTIC K URINE 03-23-2 NEGATIV NEG complet BILIRUB 013 E ed IN - 14:50 DIPSTIC K URINE 03-23-2 NEGATIV NEG complet KETONE 013 E mg/dL ed 14:50 URINE 03-23-2 1.025 1.005-1 complet SPECIFI 013 UNK .030 ed C 14:50 GRAVITY URINE 03-23-2 NEGATIV NEG complet BLOOD 013 E ed 14:50 URINE 03-23-2 7.0 UNK 5.0-8.5 complet PH 013 ed 14:50 URINE 03-23-2 NEGATIV NEG complet PROTEIN 013 E mg/dL ed - 14:50 DIPSTIC K URINE 03-23-2 0.2 NEG complet UROBILI 013 E.U./dL ed NOGEN - 14:50 DIPSTIC K URINE 03-23-2 NEGATIV NEG complet NITRATE 013 E ed - 14:50 DIPSTIC K URINE 03-23-2 NEGATIV NEG complet LEUK 013 E ed ESTERAS 14:50 E URINE 03-23-2 OCC O complet WBC 013 wbc/hpf ed 14:50 URINE 03-23-2 20-50 0-5 complet SQUAMOU 013 #/hpf ed S CELLS 14:50 URINE 03-23-2 1+ O complet BACTERI 013 ed A 14:50 CHLAMYDIA AND GONORRHEA TESTING (05-05-2012 10:00) Chlamyd NEGATIV complet ia 013 E ed trachom 10:00 atis rRNA [Presen ce] in Unspeci fied specime n by Probe & target amplifi cation method Neisser NEGATIV complet ia 013 E ed gonorrh 10:00 oeae rRNA [Presen ce] in Unspeci fied specime n by Probe & target amplifi cation method CHLAMYDIA AND GONORRHEA TESTING (05-05-2012 10:00) COLLECT A. complet OR 013 SHONNA ed 10:00 RN ETHNICI WHITE, complet TY 013 NON-HIS ed 10:00 PANIC KIT complet EXPIRAT 013 013 ed ION 10:00 DATE SYMPTOM NO complet S 013 ed 10:00 REASON VOLUNTE complet FOR 013 ER/MEDI ed REQUEST 10:00 DAVID PROBLEM SPECIME URINE complet N 013 ed SOURCE 10:00 PREGNAN YES complet T 013 ed 10:00 CHART 402-45- complet NUMBER 013 [id number] ed 10:00 Chlamyd Pending complet ia 013 ed trachom 10:00 atis rRNA [Presen ce] in Unspeci fied specime n by Probe & target amplifi cation method Neisser Pending complet ia 013 ed gonorrh 10:00 oeae rRNA [Presen ce] in Unspeci fied specime n by Probe & target amplifi cation method CHLAMYDIA AND GONORRHEA TESTING (12-21-2011 09:30) [place]lamyd NEGATIV complet ia 012 E ed trachom 09:30 atis rRNA [Presen ce] in Unspeci fied specime n by Probe & target amplifi cation method Neisser POSITIV complet ia 012 E ed gonorrh 09:30 oeae rRNA [Presen ce] in Unspeci fied specime n by Probe & target amplifi cation method CHLAMYDIA AND GONORRHEA TESTING (12-21-2011 09:30) COLLECT NA complet OR 012 ed 09:30 ETHNICI WHITE, complet TY 012 NON-HIS ed 09:30 PANIC KIT 04-27-12 complet EXPIRAT 012 ed ION 09:30 DATE SYMPTOM YES complet S 012 ed 09:30 REASON INITIAL complet FOR 012 FAMILY ed REQUEST 09:30 PLANNIN G VISIT SPECIME FEMALE complet N 012 ENDOCER ed SOURCE 09:30 VICAL PREGNAN NO complet T 012 ed 09:30 CHART NA complet NUMBER 012 ed 09:30 Chlamyd Pending complet ia 012 ed trachom 09:30 atis rRNA [Presen ce] in Unspeci fied specime n by Probe & target amplifi cation method Neisser Pending complet ia 012 ed gonorrh 09:30 oeae rRNA [Presen ce] in Unspeci fied specime n by Probe & target amplifi cation method Reagin Ab [Presence] in Unspecified specimen by VDRL (01-21-2011 15:58) Reagin NON-CATRACHITO complet Ab 011 CTIVE ed [Presen 15:58 ce] in Unspeci fied specime n by VDRL CHLAMYDIA AND GONORRHEA TESTING (01-21-2011 15:58) [place] NEGATIV complet ia 011 E ed trachom 15:58 atis rRNA [Presen ce] in Unspeci fied specime n by Probe & target amplifi cation method Neisser NEGATIV complet ia 011 E ed gonorrh 15:58 oeae rRNA [Presen ce] in Unspeci fied specime n by Probe & target amplifi cation method Reagin Ab [Presence] in Unspecified specimen by VDRL (01-21-2011 15:58) COLLECT D. 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 15:58 ETHNICI WHITE, complet TY 011 NON-HIS ed 15:58 PANIC KIT May complet EXPIRAT 011 31, ed ION 15:58 2012 DATE SYMPTOM NO complet S 011 ed 15:58 REASON VOLUNTE complet FOR 011 ER/MEDI ed REQUEST 15:58 DAVID PROBLEM SPECIME FEMALE complet N 011 ENDOCER ed SOURCE 15:58 VICAL PREGNAN NO complet T 011 ed 15:58 CHART NA complet NUMBER 011 ed 15:58 Chlamyd Pending complet ia 011 ed trachom 15:58 atis rRNA [Presen ce] in Unspeci fied specime n by Probe & target amplifi cation method Neisser Pending complet ia 011 ed gonorrh 15:58 oeae rRNA [Presen ce] in Unspeci fied specime n by Probe & target amplifi cation method Procedures Procedure DOS Code Location Performer Comment URINE 17135 [facility] 7 PHYSICIAN PHYSICIAN TEST S GROUP S GROUP VISUAL COLOR CMPRSN METHS URINE 63876 [facility]ET [facility] TEST INC INC VISUAL COLOR CMPRSN METHS URNLS DIP 34660 SUMEET FAY 6 [facility] STICK/TAB INC INC LET REAGENT AUTO MICROSCOP Y IIV4 VACC 07494 [place] SPLIT 6 [facility] VIRUS 0.5 ML DOS DEPARTMEN DEPARTMEN FOR IM T T USE RADEX 04209 [facility] ANKLE 5 [place] STEPH COMPLETE EMERGENCY MINIMUM 3 PHYS VIEWS 70575 [facility] DUBOSE DELIVERY 5 PHYSICIAN MARGARITA ONLY S GROUP W/POSTPAR SAMMY CARE ANESTHESI 32838 COMMUNITY [place] A 5 ANESTH NICKOLAS OF THE DELIVERY BLUE ONLY LIG/TRNSX 24705 [facility] SEDRICK J 5 PHYSICIAN MARGARITA FALOPIAN S GROUP TUBE DEL/ABDML SURG 70710 [facility] SCHULSTAD DELIVERY 5 PHYSICIAN CAM ONLY S GROUP OTH 6639 SUMEET [facility] BILATERAL 5 [facility] INC INC DESTRUC/O CCLUSION FALLOPIAN TUBES LOW 741 SUMEET FAY CERVICAL 5 [facility] INC INC SECTION 76958 [facility] DUBOSE NONSTRESS 5 PHYSICIAN MARGARITA TEST S GROUP IAADIADOO 35985 COMBINED COMBINED 5 PHYSICIAN PHYSICIAN STREPTOCO S LA S LA CCUS GROUP B GLUCOSE 99803 SUMEET FAY TOLERANCE 4 [facility] EA ADDL INC INC BEYOND 3 SPECIMENS GLUCOSE 88239 SUMEET FAY TOLERANCE 4 [facility] TEST GTT INC INC 3 SPECIMENS URNLS DIP 98860 SUMEET FAY 4 [facility] STICK/TAB INC INC LET RGNT NON-AUTO W/O MICRSCP GLUCOSE 80007 [facility] POST 4 PHYSICIAN PHYSICIAN GLUCOSE S GROUP S GROUP DOSE 44697 SEKOU ARGUELLO NONSTRESS 4 JOS BRITO DENISE TEST GROUND A0425 [facility] STATUTE EMS EMS MILE AMB A0427 [facility] SERVICE 4 [facility] EMERGENCY EMS EMS TRANSPORT LEVEL 1 CULTURE 51370 COMBINED COMBINED BACTERIAL 4 PHYSICIAN PHYSICIAN S LA S LA QUANTTATI VE COLONY COUNT URINE IM ADM 99595 PRIMARY LARISSA PRQ ID 4 HEALTH RIMMA SUBQ/IM ASSOCIATE NJXS 1 S PS VACCINE IIV3 76901 PRIMARY LARISSA VACCINE 4 HEALTH RIMMA SPLIT ASSOCIATE VIRUS 0.5 S PS ML DOSAGE IM USE US PREG 00369 [facility] UTERUS 4 MARGARITA MARGARITA AFTER 1ST TRIMEST GESTATION OPHTH 09867 [facility] 4 XM&EVAL COMPRE NEW PT 1/> VST IADNA 42311 [facility] VIRUS HUMAN AMPLIFIED PROBE TQ CYTP 00861 [facility] CERVICAL/ [facility] [place] VAGINAL REQ INTERP PHYSICIAN CYTP C/V 79437 [facility], [facility] AUTO THIN [facility] LYR PREPJ SCR MNL RESCR PHYS IADNA 25360 [facility] CHLAMYDIA [facility] TRACHOMAT IS AMPLIFIED PROBE TQ IADNA 26108 [facility] NEISSERIA [facility] GONORRHOE AE AMPLIFIED PROBE TQ URINE 61295 [facility] 4 MARGARITA MARGARITA TEST VISUAL COLOR CMPRSN METHS URINE 27166 [place] 4 [facility] TEST VISUAL DEPARTMEN DEPARTMEN COLOR T T CMPRSN METHS IADNA 70972 [place] NEISSERIA 4 [facility] GONORRHOE DEPARTMEN DEPARTMEN AE T T AMPLIFIED PROBE TQ IADNA 41197 [place] CHLAMYDIA 4 [facility] TRACHOMAT DEPARTMEN DEPARTMEN IS T T AMPLIFIED PROBE TQ IADNA 99819 [place] CHLAMYDIA 4 [facility] TRACHOMAT DEPARTMEN DEPARTMEN IS T T AMPLIFIED PROBE TQ CYTP 67366 PICK[facility] PICKLESIM CERV/VAG 4 ER JR NBA ER JR NBA AUTO THIN LAYER PREP MNL SCREEN LIPID 79945 [facility] PANEL [address] [place] [address] HEPATIC 69157 [facility] FUNCTION 4 [facility] CONTRACEP A4267 LARISSA PAEZON TIVE 4 [facility] SUPPLY CONDOM DEPARTMEN DEPARTMEN MALE EACH T T IADNA 71948 LARISAS PAEZON NEISSERIA 4 [facility] GONORRHOE [facility]PAR[facility] DE[facility] AE [place] [address] LARISSA DIAS THYROID 4 [facility] NG HORMONE TSH COLLECTIO 38837 LARISSA DIAS N VENOUS 4 [facility] VENIPUNCT URE BLOOD 67229 LARISSA PAEZON COUNT 4 [facility] AUTO&AUTO DIFRNTL WBC BASIC 69916 [facility] JEANNINE METABOLIC [address] [place] [address] CALCI[address] T[address] THERAPEUT [address] [facility] IC 4 DWAIN DWAIN PROPHYLAC STEVEN STEVEN TIC/DX INJECTION SUBQ/IM RADEX 42088 [facility] SPINE 4 [facility] LUMBOSACR STEVEN STEVEN AL 2/3 VIEWS INJECTION J1885 [facility]. 4 [facility] KETOROLAC STEVEN STEVEN TROMETHAM INE PER 15 MG URINE 01586 [facility] 3 MARGARITA MARGARITA TEST VISUAL COLOR CMPRSN METHS 92248 [facility] DELIVERY 3 DENISE DENISE ONLY ANESTHESI 46196 KADEN ALFONSO RAE A 3 DELIVERY ONLY 04362 [facility] DELIVERY 3 MARGARITA MARGARITA ONLY W/POSTPAR SAMMY CARE LOW 741 SUMEET FAY CERVICAL 3 [facility] INC INC SECTION CUL BACT 05140 COMBINED COMBINED XCPT 3 PHYSICIAN PHYSICIAN URINE S LA S LA BLOOD/STO OL AEROBIC ISOL DRUG SCR G0434 [facility] NOT 3 MARGARITA MARGARITA CHROMATOG RAPHIC; ANY NUMBER PT ENC GLUCOSE 26131 [facility] TOLERANCE 3 MARGARITA MARGARITA TEST GTT 3 SPECIMENS 74916 [facility] NONSTRESS 3 DENISE DENISE TEST URNLS DIP 09520 SUMEET FAY 3 [facility] STICK/TAB INC INC LET REAGENT AUTO MICROSCOP Y US PREG 84730 [facility] UTERUS 3 HEALTH MARGARITA AFTER 1ST CLINIC OF TRIMEST MARE GESTATION FRAMES V2020 JENA DALE JENA DALE PURCHASES 3 LENS V2784 JENA DALE JENA DALE POLYCARBO 3 NALINI OR EQUAL ANY INDEX PER LENS FITTING 75377 JENA DALE JENA DALE SPECTACLE 3 S XCPT APHAKIA MONOFOCAL OPHTH 21381 JENA DALE JENA DALE MEDICAL 3 XM&EVAL COMPRE NEW PT 1/> VST SPHERE V2100 JENA DALE JENA DALE SINGLE 3 VISION PLANO +/- 4.00 PER LENS URNLS DIP 43201 SUMEET [facility]AY 3 [facility] STICK/TAB INC INC LET REAGENT AUTO MICROSCOP Y CULTURE 77502 SUMEET FAY BACTERIAL 3 [facility] INC INC QUANTTATI VE COLONY COUNT URINE URNLS DIP 84013 SUMEET FAY 3 [facility] STICK/TAB INC INC LET REAGENT AUTO MICROSCOP Y THERAPEUT 88117 SUMEET FAY IC 3 [facility] PROPHYLAC INC INC TIC/DX INJECTION SUBQ/IM INJECTION J2405 SUMEET FAY 3 [facility] ONDANSETR INC INC ON HCL PER 1 MG US PREG 04823 [facility] UTERUS 3 HEALTH MARGARITA REAL TIME CLINIC OF W/IMAGE MARE DCMTN TRANSVAG CYTP C/V 72418 PATHOLOGY [facility] AUTO THIN 3 & PENNY LYR CYTOLOGY PREPJ SCR LAB MNL RESCR PHYS IADNA 72359 PATHOLOGY [facility]EV[facility] NEISSERIA 3 & PENNY CYTOLOGY GONORRHOE LAB AE AMPLIFIED PROBE TQ IADNA 19811 PATHOLOGY [facility] CHLAMYDIA 3 & PENNY CYTOLOGY TRACHOMAT LAB IS AMPLIFIED PROBE TQ CYTP 40516 PATHOLOGY [facility] CERVICAL/ 3 & PENNY VAGINAL CYTOLOGY REQ LAB INTERP PHYSICIAN ECG 94414 PRISCILA SWARTZ SWARTZ PRISCILA ROUTINE 1 ECG CONSULTIN W/LEAST G SRV 12 LDS I&R ONLY THER 03632 CONSUELO CORDERO PROPH/DX 1 JOSE JOSE NJX IV PUSH SINGLE/1S T SBST/DRUG DEEP D9220 CONSUELO CORDERO SEDATION/ 1 JOSE JOSE GENERAL ANESTHESI A-1ST 30 MINUTES ORTHOPANT 45008 CONSUELO CORDERO OGRAM 1 JOSE JOSE URNLS DIP 58484 SUMEET FAY 1 [facility] STICK/TAB INC INC LET REAGENT AUTO MICROSCOP Y CULTURE 67149 SUMEET FAY BACTERIAL 1 [facility] INC INC QUANTTATI VE COLONY COUNT URINE URINE 03167 SUMEET FAY 1 [facility] TEST INC INC VISUAL COLOR CMPRSN METHS BLS A0382 BROWN BROWN ROUTINE 1 AMBULANCE AMBULANCE DISPOSABL SERVICE SERVICE E SUPPLIES SIMPLE 58278 NEVILLE GUTHRIE REPAIR 1 EMERGENCY BENIGNO F/E/E/N/L SERVICES /M 2.5CM/< GROUND A0425 [facility] MILEAGE 1 AMBULANCE AMBULANCE PER SERVICE SERVICE STATUTE MILE AMBULANCE A0429 [facility] SERVICE 1 AMBULANCE AMBULANCE BLS SERVICE SERVICE EMERGENCY TRANSPORT SUTURE OF 2751 SUMEET FAY 1 [facility] LACERATIO INC INC N OF LIP IADNA 47263 SUMEET FAY CHLAMYDIA 1 [facility] TRACHOMAT IS AMPLIFIED PROBE TQ IADNA 22584 SUMEET FAY NEISSERIA 1 [facility] [place]ORRHO[place] [address] SUMEET FAY STREPTOCO 0 [facility] CCUS INC INC GROUP A IAADI 05213 SUMEET FAY INFLUENZA 0 [facility] B VIRUS INC INC IAADI 06164 SUMEET FAY INFFLUENZ 0 [facility] A A VIRUS INC INC IM ADM 96938 SUMEET FAY PRQ ID 0 [facility] SUBQ/IM CENTER CENTER NJXS 1 VACCINE URINE 59221 SUMEET FAY 0 [facility] TEST INC INC VISUAL COLOR CMPRSN METHS CULTURE 00236 SUMEET FAY BCT 0 [facility] ISOL&PRSM INC INC PTV ID ISOLATE EA URINE CULTURE 94605 SUMEET FAY BACTERIAL 0 [facility] INC INC QUANTTATI VE COLONY COUNT URINE SUSCEPTIB 91359 SUMEET FAY LTY STDY 0 [facility] ANTIMICRB INC INC IAL MICRO/AGA R DILUTJ URNLS DIP 20196 SUMEET FAY 0 [facility] STICK/TAB INC INC LET REAGENT AUTO MICROSCOP Y URNLS DIP 63414 SUMEET FAY 0 [facility] STICK/TAB INC INC LET REAGENT AUTO MICROSCOP Y IADNA 28743 SUMEET FAY NEISSERIA 0 [facility] INC INC GONORRHOE AE AMPLIFIED PROBE TQ SMR PRIM 35493 SUMEET [place] SRC WET 0 [facility] MOUNT INC INC NFCT AGT URINE 28679 SUMEET FAY 0 [facility] TEST INC INC VISUAL COLOR CMPRSN METHS IADNA 31447 SUMEET FAY CHLAMYDIA 0 [facility] INC INC TRACHOMAT IS AMPLIFIED PROBE TQ IM ADM 81998 SUMEET FAY PRQ ID 0 [facility] SUBQ/IM CENTER CENTER NJXS 1 VACCINE IM ADM 14922 SUMEET FAY PRQ ID 0 [facility] SUBQ/IM CENTER CENTER NJXS 1 VACCINE CUL BACT 43625 COMBINED COMBINED XCPT 9 PHYSICIAN PHYSICIAN URINE S LAB S LAB BLOOD/STO OL AEROBIC ISOL ANTIBODY 66961 COMBINED COMBINED CHLAMYDIA 9 PHYSICIAN PHYSICIAN S LAB S LAB URNLS DIP 71732 SUMEET FAY 9 [facility] STICK/TAB INC INC LET REAGENT AUTO MICROSCOP Y CULTURE 15102 SUMEET FAY BACTERIAL 9 [facility] INC INC QUANTTATI VE COLONY COUNT URINE URINE 03747 SUMEET FAY 9 [facility] TEST INC INC VISUAL COLOR CMPRSN METHS URINE 91311 SUMEET FAY 9 [facility] TEST INC INC VISUAL COLOR CMPRSN METHS RADEX ABD 09607 [facility], COMPL 9 MEDICAL AVERY AQT ABD IMAGING W/S/E/D ASSOCIATE VIEWS 1 S VIEW CH COMPREHEN 23540 SUMEET FAY SIVE 9 [facility] METABOLIC INC INC PANEL URNLS DIP 37264 SUMEET FAY 9 [facility] STICK/TAB INC INC LET REAGENT AUTO MICROSCOP Y BLOOD 70686 SUMEET FAY COUNT 9 [facility] COMPLETE INC INC AUTO&[place] [address] SUMEET FAY LIPASE 9 [facility] INC INC BILIRUBIN 93671 SUMEET FAY DIRECT 9 [place] [address] SUMEET FAY AMYLASE 9 [facility] INC INC INSERTION 82432 [facility], 8 [facility] INTRAUTER CLINIC OF INE DEVICE [place] IUD PLLC URINE 58217 [facility], 8 HEALTH [facility] J TEST CLINIC OF VISUAL COLOR [place] CMPRSN [facility] METHS IIV3 77840 DHS/CO SUMEET VACCINE 8 HEALTH [facility] VIRUS 0.5 BANK ACCT ML DOSAGE IM USE IADNA 39999 [facility], CHLAMYDIA 8 [place] INC JEN D TRACHOMAT IS AMPLIFIED PROBE TQ CYTP 70111 [facility], CERV/VAG 8 [place] INC JEN D AUTO THIN LAYER PREP MNL SCREEN IADNA 56524 [facility], NEISSERIA 8 [place] INC JEN [place] [address] [facility] SCH[facility]ST[facility] DELIVERY 8 , CRISTY , CRISTY ONLY ANESTHESI 95749 [facility] Trish RODRIGUEZ 8 ANESTH SHIELA L OF [place] V[place] [address] [facility] OF [facility] OF NON-IMMUN 8 [place] INC OLOGIC OTH/THN CYTOPATHI C HX&XM NML 17608 FAMILY [place], NB INFT 8 CARE R NOEMI INITIATIAileen ASSOCIATE N DX&[place] S [address] [facility], DELIVERY 8 [facility] BEAT[facility] J ONLY CLINIC OF W/POSTPAR SAMMY CARE [facility] 96844 [facility], NONSTRESS 8 [facility] J TEST CLINIC OF [facility] 23939 [facility], NONSTRESS 8 [facility] J TEST CLINIC OF [facility] 35109 SUMEET FAY NONSTRESS 8 [facility] TEST INC INC 78876 SUMEET [place] NONSTRESS 8 [facility] TEST INC INC 29861 [facility], NONSTRESS 8 [facility] J TEST CLINIC OF [facility] 75914 [facility], NONSTRESS 8 [facility] J TEST [facility]IN[facility] OF [facility] CUL BACT 25682 COMBINED COMBINED XCPT 8 PHYSICIAN PHYSICIAN URINE S LAB S LAB BLOOD/STO OL AEROBIC ISOL 52654 [facility], BIOPHYSIC 8 [facility] AL CLINIC OF PROFILE W/O [place] NON-STRES [facility] S TESTING DOPPLER 66715 [facility], VELOCIMET 8 [facility] RY CLINIC OF UMBILICAL ARTERY [place] [facility] US PREG 53291 [facility], UTERUS 8 [facility] REAL TIME CLINIC OF F/U TRNSABDL [place] PER FETUS [facility] 29146 WOMEN'S CROSS, NONSTRESS 8 [facility] TEST CLINIC OF [place] [facility] URNLS DIP 05893 SUMEET FAY 8 [facility] STICK/TAB INC INC LET REAGENT AUTO MICROSCOP Y GLUCOSE 18138 [facility], TOLERANCE 8 [facility] TEST GTT CLINIC OF 3 [facility] GLUCOSE 02335 [facility], POST 8 [facility] GLUCOSE [facility]SE [facility] 96871 SUMEET FAY NONSTRESS 8 [facility] TEST INC INC URNLS DIP 56155 SUMEET FAY 8 [facility] STICK/TAB INC INC LET REAGENT AUTO MICROSCOP Y US PREG 65988 [facility], UTERUS 8 [facility] AFTER CLINIC OF TRIMEST [place] GESTATION [facility] ALPHA-FET 51939 SUMEET FAY OPROTEIN 8 [facility] SERUM [place] P[place] 29944 [facility], UTERUS 8 [facility] REAL TIME CLINIC OF W/IMAGE DCMTN [place] TRANSVAG [facility] IAADIADOO 41606 [facility] [facility] [place] [address] WOMEN'S CROSS, 8 [facility] UTERUS 14 CLINIC OF WK TRANSABDL [place] [facility] GESTAT IADNA 14233 [facility], NEISSERIA 8 [place] E GONORRHOE AE AMPLIFIED PROBE TQ CYTP 62370 [facility], CERV/VAG 8 [place] [facility] [place] Jaelyn AUTO THIN LAYER PREP MNL SCREEN IADNA 16524 [facility], CHLAMYDIA 8 [place] E TRACHOMAT IS AMPLIFIED PROBE TQ MOLECULAR 08008 [facility], DX AMP 8 [place] [facility] [place] E TARGET MULTIPLEX EA ADDL SEQ MOLEC 58576 [facility], SEP&ID HI 8 [place] [facility] [place] RESOLU TQ EACH NUCLEIC ACID PREP MOLEC 43027 [facility], ENZYMATIC 8 [place] [facility] [place] E DIGESTION EA ENZYME TX MOLECULAR 69099 [facility], DX AMP 8 [place] [facility] [place] E TARGET MULTIPLEX 1ST 2 SEQ MOLECULAR 35028 [facility], 8 [place] [facility] [place] DIAGNOSTI CS INTERPRET ATION & REPORT MUTATION 42279 [facility], ID 8 [place] [facility] [place] ENZYMATIC LIG/PRIME R XTN 1 SGM EA LOW 74.1 Beatriz Dubose MD Encounters Encounter Start End Date Code Location Performer Type Date OFFICE 29439 [facility] SEDRICK BEST 7 7 PHYSICIAN T VISIT S GROUP 15 MINUTES EMERGENCY 61595 [facility]YSICIAN U [facility] T VISIT MODERATE SEVERITY EMERGENCY 39978 [facility] 6 PHYSICIAN U [facility] T VISIT MODERATE SEVERITY HOSPITAL SUMEET - 6 6 [facility] T EMERGENCY 07726 SUMEET 6 6 [facility] T VISIT LOW/MODER SEVERITY EMERGENCY 61626 [facility] 5 5 [facility] EMERGENCY T VISIT PHYS HIGH/URGE NT SEVERITY HOSPITAL SUMEET - 5 5 [facility] INPATIENT INC OFFICE 62407 [facility] SEDRICK BEST 5 5 PHYSICIAN MARGARITA T VISIT S GROUP 15 MINUTES OFFICE 70529 [facility] SEDRICK BEST 5 5 PHYSICIAN MARGARITA T VISIT S GROUP 15 MINUTES OFFICE 74718 [facility] DUBOSE OUTPATIEN 4 4 PHYSICIAN MARGARITA T VISIT S GROUP 15 MINUTES HOSPITAL SUMEET - 4 4 [facility] OUTPATIEN INC T OFFICE 53538 [facility] OUTPATIEN 4 4 PHYSICIAN T VISIT 5 S GROUP MINUTES OFFICE 70557 [facility] DUBOSE OUTPATIEN 4 4 PHYSICIAN MARGARITA T VISIT S GROUP 15 MINUTES OFFICE 96675 [facility] DUBOSE OUTPATIEN 4 4 MARGARITA MARGARITA T VISIT 15 MINUTES OFFICE 31470 PRIMARY LARISSA OUTPATIEN 4 4 HEALTH RIMMA T VISIT ASSOCIATE 15 S PS MINUTES EMERGENCY [address] [facility] 4 4 [facility]W DEPARTMEN EMERGENCY T VISIT PHYS HIGH/URGE NT SEVERITY OFFICE 95458 [facility] OUTPATIEN 4 4 MARGARITA MARGARITA T VISIT 25 MINUTES OFFICE 65549 [facility] 4 4 [facility] T VISIT 15 DEPARTMEN DEPARTMEN MINUTES T T OFFICE 75705 LARISSA LARISSA OUTPATIEN 4 4 RIMMA RIMMA T VISIT 15 MINUTES INITIAL 51829 [facility] [facility] PREVENTIV 4 4 [facility] NEW PT T T AGE 18-39YRS HOSPITAL JEANNINEON - 4 4 [facility] - 4 4 [facility] [address] 4 4 [facility] T VISIT MODERATE SEVERITY Inpatient CASSY Dubose MD (IN) 3 01:27 3 18:40 [facility] SUMEET - 3 3 [facility] INPATIENT INC OFFICE 56599 [facility] HARPEL OUTPATIEN 3 3 DENISE DENISE T VISIT 15 MINUTES OFFICE 06407 [facility] OUTPATIEN 3 3 HEALTH MARGARITA T VISIT CLINIC OF 15 MARE MINUTES OFFICE 13824 [facility] DUBOSE OUTPATIEN 3 3 MARGARITA MARGARITA T VISIT 15 MINUTES OFFICE 33691 [facility] DU[facility]SE OUTPATIEN 3 3 MARGARITA MARGARITA T VISIT 15 MINUTES OFFICE 06826 DU[facility] DUBOSE OUTPATIEN 3 3 MARGARITA MARGARITA T VISIT 15 MINUTES OFFICE 06128 DU[facility] DUBOSE OUTPATIEN 3 3 MARGARITA MARGARITA T VISIT 5 MINUTES OFFICE 54633 HARPEL HARPEL OUTPATIEN 3 3 DENISE DENISE T VISIT 15 MINUTES OFFICE 29764 DU[facility]SE DUBOSE OUTPATIEN 3 3 MARGARITA MARGARITA T VISIT 15 MINUTES Emergency STEPHANIE Guthrie MD (ER) 3 19:49 3 21:04 [facility] EMERGENCY 60347 SUMEET 3 3 [facility] T VISIT MODERATE SEVERITY HOSPITAL SUMEET - 3 3 [facility] T OFFICE 23014 [facility] 3 3 HEALTH MARGARITA T VISIT CLINIC OF 15 MARE MINUTES Emergency STEPHANIE Coleman MD (ER) 3 10:48 3 11:16 [facility] SUMEET - 3 3 [facility] OUTPATIEN INC T EMERGENCY 19437 SUMEET 3 3 [facility] DEPARTMEN INC T VISIT LIMITED/M [facility] EMERGENCY 52863 NEVILLE JONES 3 3 EMERGENCY DEPARTMEN SERVICES T VISIT MODERATE SEVERITY HOSPITAL SUMEET - 3 3 [facility] OUTPATIEN INC T Emergency STEPHANIE Brown MD (ER) 3 15:16 3 15:36 [facility] EMERGENCY 48964 SUMEET 3 3 [facility] DEPARTMEN INC T VISIT LOW/MODER SEVERITY HOSPITAL SUMEET - 3 3 [facility] OUTPATIEN INC T EMERGENCY 78069 NEVILLE MCKEON 3 3 EMERGENCY DEPARTMEN SERVICES T VISIT HIGH/URGE NT SEVERITY OFFICE 36224 SUMEET FAY OUTPATIEN 1 1 [facility] T VISIT CENTER CENTER 10 MINUTES OFFICE 68802 CONSUELO CORDERO OUTPATIEN 1 1 JOSE JOSE Michael [facility] 10 MINUTES HOSPITAL SUMEET - 1 1 [facility] OUTPATIEN INC T EMERGENCY 99731 NEVILLE LONG 1 1 EMERGENCY [facility] DEPARTMEN SERVICES T VISIT HIGH/URGE NT SEVERITY EMERGENCY 54173 SUMEET 1 1 [facility] DEPARTMEN INC T VISIT LOW/MODER SEVERITY HOSPITAL SUMEET - 1 1 [facility] OUTPATIEN INC T EMERGENCY 29529 SUMEET 1 1 [facility] DEPARTMEN INC T VISIT HIGH/URGE NT SEVERITY OFFICE 14814 SUMEET FAY OUTPATIEN 1 1 [facility] T VISIT CENTER CENTER 15 MINUTES OFFICE 87822 SUMEET FAY OUTPATIEN 1 1 [facility] T VISIT CENTER CENTER 15 MINUTES HOSPITAL SUMEET - 0 0 [facility] OUTPATIEN INC T EMERGENCY 80905 SUMEET 0 0 [facility] DEPARTMEN INC T VISIT MODERATE SEVERITY OFFICE 62593 SUMEET FAY OUTPATIEN 0 0 [facility] T VISIT CENTER CENTER 10 MINUTES HOSPITAL SUMEET - 0 0 [facility] OUTPATIEN INC T EMERGENCY 91777 SUMEET 0 0 [facility] DEPARTMEN INC T VISIT LOW/MODER SEVERITY EMERGENCY 12138 NEVILLE BROWN BAB 0 0 EMERGENCY DEPARTMEN SERVICES T VISIT HIGH/URGE NT SEVERITY HOSPITAL SUMEET - 0 0 [facility] OUTPATIEN INC T EMERGENCY 78661 SUMEET 0 0 [facility] DEPARTMEN INC T VISIT HIGH/URGE NT SEVERITY EMERGENCY 94544 NEVILLE NATASHA, 0 [facility] HIGH/URGE ASSOCIATE NT S SEVERITY OFFICE 41525 SUMEET [facility]AY OUTPATIEN 0 0 [facility] C[facility] 10 MINUTES OFFICE 66508 HOLLY BARRERA OUTPATIEN 0 0 JAIMIE JAIMIE T VISIT 10 MINUTES OFFICE 48874 SUMEET [facility]AY OUTPATIEN 0 0 [facility] 10 CENTER CENTER MINUTES OFFICE 26977 [facility] 9 9 HEALTH [facility]AT[facility] J T VISIT CLINIC OF 15 MINUTES [facility] EMERGENCY 14233 NEVILLE GUTHRIE, 9 9 EMERGENCY [facility] DEPARTMEN SERVICES T VISIT HIGH/URGE ASSOCIATE NT S SEVERITY HOSPITAL SUMEET - 9 9 [facility] OUTPATIEN INC T EMERGENCY 90541 SUMEET 9 9 [facility] DEPARTMEN INC T VISIT LOW/MODER SEVERITY OFFICE 78071 HOLLY BARRERA OUTPATIEN 9 9 JAIMIE JAIMIE T VISIT 10 MINUTES HOSPITAL SUMEET - 9 9 [facility] OUTPATIEN INC T EMERGENCY 01269 SUMEET 9 9 [facility] DEPARTMEN INC T VISIT MODERATE SEVERITY EMERGENCY 08710 KAVYA MARIANO, ELLIOTT 9 9 [facility] VISIT CORPORATI HIGH ON SEVERITY& [facility] 41809 [facility] 8 8 HEALTH [facility] J T VISIT CLINIC OF 25 MINUTES [facility] OFFICE 61595 [facility], OUTPATIEN 8 8 HEALTH [facility] J T VISIT CLINIC OF 15 MINUTES [facility] OFFICE 73187 [facility], OUTPATIEN 8 8 HEALTH BEAT[facility] J T VISIT CLINIC OF 15 MINUTES [facility] OFFICE 60620 [facility] OUTPATIEN 8 8 HEALTH [facility] VISIT CLINIC OF 15 MINUTES [facility] SUMEET - 8 8 [facility] OUTPATIEN [facility] SUMEET [facility] 8 8 [facility] OUTPATIEN [facility] OFFICE 77748 [facility] OUTPATIEN 8 8 [facility] VISIT CLINIC OF 15 MINUTES [facility] OFFICE 89170 [facility] OUTPATIEN 8 8 [facility]ALTH [facility] VISIT CLINIC OF 15 MINUTES [facility] OFFICE 36412 [facility], OUTPATIEN 8 8 [facility] VISIT CLINIC OF 15 MINUTES [facility] SUMEET - 8 8 [facility] OUTPATIEN [facility] OFFICE 64849 [facility] OUTPATIEN 8 8 [facility]ALTH [facility] T VISIT CLINIC OF 15 MINUTES [facility] OFFICE 66293 [facility], OUTPATIEN 8 8 HEALTH [facility] T VISIT CLINIC OF 15 MINUTES [facility] OFFICE 10033 [facility], OUTPATIEN 8 8 HEALTH [facility] J T VISIT 5 CLINIC OF MINUTES [facility] OFFICE 94727 [facility], OUTPATIEN 8 8 HEALTH [facility] T VISIT CLINIC OF 15 MINUTES [facility] OFFICE 70710 [facility], OUTPATIEN 8 8 HEALTH [facility] J T VISIT CLINIC OF 15 MINUTES [facility] SUMEET [facility] 8 8 [facility] 94181 [facility] T VISIT CLINIC OF 15 MINUTES [facility] SUMEET [facility] 8 8 [facility] OFF[facility] 86188 [facility] J T [facility]ISIT CLINIC OF 15 MINUTES [facility] OFFICE 63489 [facility] J T VISIT CLINIC OF 15 MINUTES [facility] OFFICE 56803 [facility] J T VISIT CLINIC OF 15 MINUTES [facility] BOS[facility]ON - 8 8 [facility] [place] T EMERGENCY 87548 JEANNINEON [facility] 8 [facility] T VISIT LOW/MODER SEVERITY EMERGENCY 02878 ANI JACOBSEN, [address] [facility] EMERGENCY T VISIT PHYS INC MODERATE SEVERITY
--- OUTSIDE RECORDS SUMMARY | 2017-01-17 18:41 | External Medical Summary Rpt | CCD ---
Author Author , REJI Organization REJI Address Unknown Phone Care Team Providers Care Ride Attendant Name Role Phone Cipriano Brown MD, Unavailable Unavailable PEDRO Leung MD, TAY, Unavailable Unavailable JUAN ALBERTO WAYNE Unavailable Unavailable [facility] Unavailable Unavailable DEPARTMENT, [facility] DEPARTMENT [facility] Unavailable Unavailable DEPARTMENT, [facility] DEPARTMENT [facility] Unavailable Unavailable [facility] LARISSA STEPHENSON Unavailable Unavailable LARISSA KAY Unavailable Unavailable [facility]IM[facility] Unavailable Unavailable SERVICE, [facility] Unavailable Unavailable SERVICE, [facility] ETHAN BENIGNO, ETHAN Unavailable Unavailable BENIGNO SEDRICK DUBOSE Unavailable Unavailable NAN GOYALE Unavailable Unavailable MARGARITA NAN GOYALE Unavailable Unavailable BEATRIZ BIRD, Unavailable Unavailable BEATRIZ DUBOSE [facility], Unavailable Unavailable [facility] Unavailable Unavailable [place], [facility]available Unavailable [facility], [facility] Unavailable Unavailable LAB, [facility] SWARTZ PRISCILA, SWARTZ PRSICILA Unavailable Unavailable ANA, AVERY, Unavailable Unavailable ANA, [facility] Unavailable Unavailable [facility], Unavailable [facility]available [facility] Beatriz Dubose MD, Unavailable Unavailable Beatriz Dubose MD [facility] Unavailable Unavailable [place], [facility] [place] [facility] Unavailable [place]available [place], [facility] NATASHA PELAZE, NATASHA Unavailable Unavailable BENIGNO STARR GUTHRIE, Unavailable Unavailable STARR GUTHRIE MD, Unavailable Unavailable JOS CISNEROS MD Unavailable Unavailable [facility] Unavailable Unavailable [place], [facility] Unavailable Unavailable CENTER, [facility] Unavailable Unavailable INC, [facility] CORDERO JOSE, Unavailable Unavailable CORDERO JOSE CORDERO JOSE, Unavailable Unavailable CORDERO JOSE GONZÁLES JOURDAN, GONZÁLES JOURDAN Unavailable Unavailable GONZÁLES JOURDAN, GONZÁLES JOURDAN Unavailable Unavailable [facility], Unavailable Unavailable [facility] JEN JAY, Unavailable Unavailable JEN JAY MD, Unavailable Unavailable RIGO Moreira MD Unavailable Unavailable [facility], Unavailable Unavailable [facility] RODRIGUEZ, SHIELA L, Unavailable Unavailable RODRIGUEZ, SHIELA L TIN BARRERA, Unavailable Unavailable TIN BARRERA QUINTERO MAYNOR, QUINTERO Unavailable Unavailable MAYNOR Dean Guthrie MD, Unavailable Unavailable Dean Guthrie MD [facility], Unavailable Unavailable [facility] Unavailable Unavailable SERVICES, [facility] KADEN MCBRIDE, KADEN MCBRIDE Unavailable Unavailable Michael GAINES, Unavailable Unavailable Michael GAINES [facility] PRISCILA SWARTZ MD Unavailable Unavailable CONSULTING SRV, PRISCILA SWARTZ MD [facility]ING [facility] Unavailable Unavailable EMS, [facility] Unavailable Unavailable EMS, [facility], Unavailable Unavailable PLLC, [facility] [...] PHARM #[id number] [facility] Unavailable Unavailable [id number] # [id number], [facility] [address]10[address] # [phone] [facility], Unavailable Unavailable [facility] [...] PHARMACY #591 [facility] # Unavailable Unavailable [id number], [facility] # [id number] MAINE JONES, MAINE JONES Unavailable Unavailable MAURICIO MARIANO, Unavailable Unavailable MAURICIO MARIANO, ANIKA Unavailable Unavailable [facility] Unavailable Unavailable [facility] [place], [facility] [place] Purpose Continuity of Care Document - 04-21-2007 through 2016 Problems Code Diagnosis DOS Provider Status [id number] HIGH RISK 06-08-2016 [facility] [id number] UNS OPEN 09-23-2015 [facility]NS [facility], TOES PLLC W/DAMAGE NAIL INITIAL R1030 LOWER 06-11-2015 [facility] ABDOMINAL [facility], PAIN PLLC UNSPECIFIED Z720 TOBACCO USE 06-11-2015 [facility] Z23 ENCOUNTER 04-22-2015 [facility] IMMUNIZATIO DEPARTMENT N 85153 PAIN IN 11-22-2014 [facility] [place] [facility] ANKLE AND FOOT 44257 UNSPECIFIED 11-22-2014 [facility] SITE OF N EMERGENCY ANKLE PHYS SPRAIN AND STRAIN E8859 FALL FROM 11-22-2014 [facility] OTHER N EMERGENCY SLIPPING PHYS TRIPPING OR STUMBLING 98950 PREV C/S 05-13-2014 [facility] DELIV DELIV PHYSICIANS W/WO GROUP MENTION ANTPRTM COND 26442 C/S DELIV 05-13-2014 [facility] W/O INDICAT PHYSICIANS DELIV W/WO GROUP ANTPRTM COND V252 STERILIZATI 05-13-2014 [facility] ON PHYSICIANS GROUP V270 OUTCOME OF 05-13-2014 [facility] DELIVERY PHYSICIANS SINGLE GROUP LIVEBORN 33763 THREATENED 05-10-2014 [facility] PREMATURE PHYSICIANS LABOR GROUP ANTEPARTUM V221 SUPERVISION 04-18-2014 [facility] [place] [address] ABNORMAL 03-08-2014 [facility] MATERNAL PHYSICIANS GLUCOSE GROUP TOLERANCE ANTEPARTUM 71118 OTHER 02-15-2014 SEKOU ARGUELLO MD LABOR, ANTEPARTUM 650 NORMAL 02-14-2014 [facility] DELIVERY [facility] EMS V154 PERS HX 01-26-2014 DEPT FOR [...] UNSPECIFIED 12-20-2013 [facility] PHYS 47635 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 25868 MATERNAL 12-20-2013 [facility] N EMERGENCY ANTEPARTUM PHYS 01580 ABDOMINAL 12-20-2013 [facility] PAIN, N EMERGENCY PERIUMBILIC PHYS 99981 PAP SMER 12-10-2013 [facility] W/ATYPICAL SQUAMOUS CELLS UNDET 59009 CERV HIGH 12-10-2013 [facility]K [facility] PAPILLOMAVI GINA DNA TEST POS V7242 12-10-2013 SEDRICK AVILA EXAMINATION OR TEST POSITIVE RESULT V745 SCREENING 12-10-2013 [facility] EXAMINATION LLC FOR VENEREAL DISEASE V2503 ENCOUNTER 11-15-2013 [facility] EMERGENCY HEALTH CONTRACEPT DEPARTMENT CNSL&PRESCR IPTION 6968 CONTACT 08-08-2013 LARISSA SHANKS DERMATITIS& OTHER ECZEMA DUE UNSPEC CAUSE 5388 OTHER AND 07-18-2013 [facility] HYPERLIPIDE SYLVESTER 4011 ESSENTIAL 07-18-2013 [place] [facility] N, [facility] 05501 OTHER 07-18-2013 [place] [facility] V242 ROUTINE 07-18-2013 [facility] FOLLOW-UP V2502 GENERAL 07-18-2013 [facility] CNSL HEALTH INITIATION DEPARTMENT OTH CONTRACEPT MEASURES V2689 OTHER 07-18-2013 [facility] SPECIFIED HEALTH PROCREATIVE DEPARTMENT MANAGEMENT 7245 UNSPECIFIED 03-30-2013 RIGO LYNN BACKACHE 8472 LUMBAR 03-30-2013 [facility] STRAIN STEVEN 9599 INJURY 03-30-2013 RIGO LYNN OTHER AND UNSPECIFIED UNSPECIFIED SITE V692 PROBLEMS 01-23-2013 SEDRICK AVILA RELATED TO HIGH-RISK SEXUAL BEHAVIOR 654.21 654.21 PREV 01-11-[facility]O MENT ANTEPART COND V27.0 V27.0 01-11-2013 [facility] LIVEBORN 55013 MATERNAL RX 12-26-2012 [facility] HEALTH COMPL PG CLINIC OF CB/PP UNS [place] EOC 616.10 616.10 09-26-2012 [facility] VAGINITIS [facility] 32601 UNSPECIFIED 09-26-2012 [facility] VULVOVAGINI TIS 646.63 646.63 09-26-2012 [place] INFECTION-A [facility] 93515 INFECTIONS 09-26-2012 [facility] HOSP GENITOURINA INC RY TRACT ANTEPARTUM 76193 OTH CURRENT 09-26-2012 [facility] CLASSIFIABL SERVICES E ELSW ANTPRTM 692.71 692.71 09-06-2012 [facility] 52080 CONTACT 09-06-2012 [facility] DERMATITIS& EMERGENCY OTHER SERVICES ECZEMA DUE TO SUNBURN 643.03 643.03 MILD 06-17-2012 [facility] HYPEREMESIS [facility] -ANTEPAR 45240 MILD 06-17-2012 [facility] HYPEREMESIS EMERGENCY GRAVIDARUM SERVICES UNSPEC EPIS CARE 07691 MILD 06-17-2012 [facility] HOSP GRAVIDARUM INC ANTEPARTUM 87755 OTHER 05-25-2012 [facility] HEALTH COMPLICATIO CLINIC OF N [place] ANTEPARTUM 41568 PAP SMER 05-17-2012 PATHOLOGY & CERV W/LW CYTOLOGY GRADE LAB SQUAMOUS INTRAEPITH LES 2662 OTHER 02-08-2011 [facility] B-COMPLEX [facility] DEFICIENCIE CENTER S V016 CONTACT 02-08-2011 [facility] WITH OR HEALTH EXPOSURE TO CENTER VENEREAL DISEASES V5869 LONG-TERM 01-28-2011 PRISCILA SWARTZ (CURRENT) USE OF CONSULTING OTHER SRV MEDICATIONS 5206 DISTURBANCE 11-11-2010 CONSUELO Barnes IN TOOTH JOSE ERUPTION 595 UNSPECIFIED 08-15-2010 [facility]IS [facility] 75249 OPEN WOUND 06-28-2010 [facility] LIP WITHOUT EMERGENCY MENTION SERVICES COMPLICATIO N E9060 DOG BITE 06-28-2010 [facility] 462 ACUTE 01-05-2010 [facility]NGIT[facility] V069 NEED PROPH 12-10-2009 [facility] VACCINATION HEALTH W/UNSPEC CENTER COMB VACCINE 7048 OTHER 08-14-2009 PRAVEENA BARRERA DISEASE OF HAIR&HAIR FOLLICLES 6262 EXCESSIVE 03-24-2009 [facility] OR [facility] OF MENSTRUATIO GERI N [facility] 1320 PEDICULUS 11-11-2008 TIERA BARRERA 5589 OTH&UNSPEC 04-01-2008 [facility]OFF NONINFECTIO [facility] GASTROENTER ITIS&COLITI S 81978 ABDOMINAL 04-01-2008 [place] [facility] V251 ENCOUNTER 02-12-2008 [facility] INSERT/[facility] HE[facility] JULES IU CLINIC OF CONTRACEPTI CYNRICARDO VE DEVICE [facility] V7231 ROUTINE 02-02-2008 [facility] GYNECOLOGIC HEALTH AL CLINIC OF EXAMINATION [place] [facility] V7388 SPECIAL SCR 02-02-2008 [facility] [place] [facility] EXAMINATION OTH SPEC CHLAMYDIAL DZ V762 SCREENING 02-02-2008 [facility] [place] INC MALIGNANT NEOPLASM OF THE CERVIX 40158 OTHER 12-01-2007 [facility] MATERNAL ANESTH OF VENEREAL THE DISEASES [facility] WITH DELIVERY 56712 OTH SPEC 12-01-2007 [facility] INDICAT HEALTH CARE/INTERV CLINIC OF EN RELATED [place] L&D DELIV [facility] V220 SUPERVISION 12-01-2007 [facility]EN[facility] OF NORMAL HEALTH FIRST CLINIC OF [place] [facility] V3000 SINGLE 12-01-2007 [facility] W/O 78498 POOR 11-09-2007 [facility] MOTH CLINIC OF ANTPRTM [place] COND/COMP PLL 39140 SPOTTING 05-04-2007 [facility] COMP HEALTH CLINIC OF ANTEPARTUM [place] COND/COMP PLL 32048 UNSPECIFIED 04-29-2007 [facility] IN CCE & UNS SITE V222 04-29-2007 [facility] Allergies, Adverse Reactions, Alerts Type Allergy to [...] ve LO 37 20 20 18 AI ND 40 17 17 68 D AM 1 [...] TA 1 BL Ac ET ti ve NH 59 10 0 No SO 76 -1 ND 25 4- Lo OS 00 20 ng [...] 5- 8 32 # 5 03 93 ND 00 08 08 21 6 RI 89 [...] UT 20 11 11 D 1 PH NH AR CH MA AE CY L 03 93 8 # 03 93 MARCANO 53 05 05 10 5 RI 88 CH Ac LF 74 -2 -2 .0 TE 41 ES ti AM 60 1- 1- 00 67 TN ve ET 27 20 20 AI UT HO 20 11 11 D XA 5 PH NH ZO AR CH LE MA AE -T CY L MP 03 DS 93 8 TA # BL 03 ET 93 AM 00 04 04 20 10 RI 87 GA Ac OX 09 -0 -0 .0 TE 77 IN ti -C 32 3- 4- 00 69 EY ve LA 27 20 20 AI V 53 11 11 D NH 87 4 PH CH 5- AR AE [...] 80 20 20 DE 43 10 10 NH 0 PH CH AR AE MA L CY S OF CY NT HI AN A DO 53 06 06 0 14 7 EA 18 GA Ac XY 48 -2 -[address] 12 IN ti CY 90 6- 6- 00 SI 89 EY ve CL 11 20 20 DE IN 90 10 10 NH E 5 PH CH HY AR AE [...] 91 00 05 06 3 15 3 WY 70 JASON Ac 18 -2 -0 .0 L- 71 SE ti 50 0- 3- 00 MA 43 ve 61 20 20 RT 6 T. 30 10 10 1 PH LO AR RE MA NZ CY O # MD 10 JASON 05 SE 91 00 05 05 3 15 3 WY 70 JASON Ac 18 -2 -2 .0 L- 71 SE ti 50 0- 0- 00 MA 43 ve 61 20 20 RT 6 T. 30 10 10 1 PH LO AR RE MA NZ CY O # MD 10 JASON 05 SE 91 CE 68 05 05 0 28 7 WY 70 LO Ac PH 18 -2 -2 .0 L- 71 RE ti AL 00 0- 0- 00 MA 43 NZ ve EX 12 20 20 RT 5 O IN 20 10 10 JASON 1 PH SE 50 AR T 0 MA MG CY # CA PS 10 UL 05 E 91 00 05 05 3 15 3 WY 70 LO Ac 18 -2 -2 .0 L- 71 RE ti 50 0- 0- 00 MA 43 NZ ve 61 20 20 RT 6 O 30 10 10 JASON 1 PH SE AR T MA CY # 10 05 91 NA 00 12 12 00 60 30 RI 81 CL Ac ND 09 -2 -3 .0 TE 45 AR [...] 72 20 20 DE 54 09 09 NH 0 PH CH AR AE MA L CY S OF CY NT HI AN A 65 12 12 00 9. 3 EA 15 GA Ac 16 -0 -[address] 36 IN ti 20 1- 7- 0 SI 63 EY ve 52 20 20 DE 01 09 09 NH 0 PH CH AR AE MA L [...] 00 20 10 RI 76 WI Ac ND 17 -0 -1 .0 TE 54 CK [...] 00 60 30 RI 76 CL Ac ND 09 -1 -0 .0 TE 31 AR ti OX 30 8- 1- 00 05 KE ve EN 14 20 20 AI 90 08 09 D DE 50 1 PH RE 0 AR K MG M J #3 TA 93 BL 8 ET NH 50 09 10 00 1. 1 TH [...] 15:58) COLLECT D.BRADF complet OR 011 ORD managed care director 15:58 ETHNICI WHITE, complet TY 011 NON-HIS [...] Procedure DOS Code Location Performer Comment URINE 76749 [facility] MUS[facility] 7 PHYSICIAN PHYSICIAN TEST S GROUP S GROUP VISUAL COLOR CMPRSN METHS URINE 95671 [facility] TEST INC INC VISUAL COLOR CMPRSN METHS URNLS DIP 91541 [facility] STICK/TAB INC INC LET REAGENT AUTO MICROSCOP Y IIV4 VACC 91218 [facility] SPLIT 6 CO HEALTH CO HEALTH VIRUS 0.5 ML DOS DEPARTMEN DEPARTMEN FOR IM T T USE RADEX 82048 [facility] ANKLE 5 [facility]ON STEPH COMPLETE EMERGENCY MINIMUM 3 PHYS VIEWS 43265 [facility] DUBOSE DELIVERY 5 PHYSICIAN MRAGARITA ONLY S GROUP W/POSTPAR SAMMY CARE ANESTHESI 05293 [facility]UNITY LUCRETIA A 5 ANESTH NICKOLAS OF THE DELIVERY BLUE ONLY LIG/TRNSX 62460 [facility] SEDRICK J 5 PHYSICIAN MARGARITA FALOPIAN S GROUP TUBE DEL/ABDML SURG 47145 [facility] SCHULSTAD DELIVERY 5 PHYSICIAN CAM ONLY S GROUP OTH 6639 [facility] BILATERAL 5 [facility] INC INC DESTRUC/O CCLUSION FALLOPIAN TUBES LOW 741 [facility] CERVICAL 5 [facility] INC INC SECTION 30423 [facility] DUBOSE NONSTRESS 5 PHYSICIAN MARGARITA TEST S GROUP IAADIADOO 20879 COMBINED COMBINED 5 PHYSICIAN PHYSICIAN STREPTOCO S LA S LA CCUS GROUP B GLUCOSE 88770 [facility] TOLERANCE 4 [facility] EA ADDL INC INC BEYOND 3 SPECIMENS GLUCOSE 11468 [facility] TOLERANCE 4 [facility] TEST GTT INC INC 3 SPECIMENS URNLS DIP 85760 [facility] STICK/TAB INC INC LET RGNT NON-AUTO W/O MICRSCP GLUCOSE 22483 [facility] MUSCATINE POST 4 PHYSICIAN PHYSICIAN GLUCOSE S GROUP S GROUP DOSE 82517 SEKOU ARGUELLO NONSTRESS 4 JOS BRITO DENISE TEST GROUND A[address] [facility] [facility] STATUTE EMS EMS MILE AMB A0427 [facility] SERVICE 4 [facility] EMERGENCY EMS EMS TRANSPORT LEVEL 1 CULTURE 42545 COMBINED COMBINED BACTERIAL 4 PHYSICIAN PHYSICIAN S LA S LA QUANTTATI VE COLONY COUNT URINE IM ADM 54871 PRIMARY LARISSA PRQ ID 4 HEALTH RIMMA SUBQ/IM ASSOCIATE NJXS 1 S PS VACCINE IIV3 75349 PRIMARY LARISSA VACCINE 4 HEALTH RIMMA SPLIT ASSOCIATE VIRUS 0.5 S PS [place]REG 02982 SED[facility] DUBOSE UTERUS 4 MARGARITA MARGARITA AFTER 1ST TRIMEST GESTATION OPHTH 29455 [facility] 4 XM&EVAL COMPRE NEW PT 1/> VST IADNA 59146 [facility] PAPILLOMA 4 LLC MAYNOR VIRUS HUMAN AMPLIFIED PROBE TQ CYTP 26552 [facility] CERVICAL/ 4 LLC MAYNOR VAGINAL REQ INTERP PHYSICIAN CYTP C/V 29072 [facility] AUTO THIN 4 LLC MAYNOR LYR PREPJ SCR MNL RESCR PHYS IADNA 83510 [facility] CHLAMYDIA 4 LLC MAYNOR TRACHOMAT IS AMPLIFIED PROBE TQ IADNA 49867 [facility], [facility] NEISSERIA 4 LLC MAYNOR GONORRHOE AE AMPLIFIED PROBE TQ URINE 97151 [facility] DUBOSE 4 MARGARITA MARGARITA TEST VISUAL COLOR CMPRSN METHS URINE 35308 [facility] 4 [facility] HEALTH TEST VISUAL DEPARTMEN DEPARTMEN COLOR T T CMPRSN METHS IADNA 81195 [facility] NEISSERIA 4 [facility] HEALTH GONORRHOE DEPARTMEN DEPARTMEN AE T T AMPLIFIED PROBE TQ IADNA 19554 [facility] CHLAMYDIA 4 [facility] TRACHOMAT DEPARTMEN DEPARTMEN IS T T AMPLIFIED PROBE TQ IADNA 36774 [facility] CHLAMYDIA 4 [facility] TRACHOMAT DEPARTMEN DEPARTMEN IS T T AMPLIFIED PROBE TQ CYTP 07012 [facility] CERV/VAG 4 ER JR NBA ER JR NBA AUTO THIN LAYER PREP MNL SCREEN LIPID 28053 [facility] PANEL [address] [place] [address] HEPATIC 59014 [facility] FUNCTION 4 [facility] CONTRACEP A4267 LARISSA PAEZON TIVE 4 [facility] HEALTH SUPPLY CONDOM DEPARTMEN DEPARTMEN MALE EACH T T IADNA 18617 LARISSA PAEZON NEISSERIA 4 [facility]RHOE [facility] [place] [address] LARISSA DIAS THYROID 4 [facility] NG HORMONE TSH COLLECTIO 58510 LARISSA DIAS N VENOUS 4 [facility] VENIPUNCT URE BLOOD 99128 LARISSA PAEZON COUNT 4 [facility] AUTO&AUTO DIFRNTL WBC BASIC 11255 [facility] JEANNINE METABOLIC [address] [place] [address] CALCIUM TOTAL THERAPEUT 95234 [facility] IC 4 DWAIN DWAIN PROPHYLAC STEVEN STEVEN TIC/DX INJECTION SUBQ/IM RADEX 50399 [facility] SPINE [address] [facility] LUMBOSACR STEVEN STEVEN AL 2/3 VIEWS INJECTION J1885 [facility]. [address] [facility] KETOROLAC STEVEN STEVEN TROMETHAM INE PER 15 MG URINE 79675 [facility] DU[facility] 3 MARGARITA MARGARITA TEST VISUAL COLOR CMPRSN METHS 81864 [facility] DELIVERY 3 DENISE DENISE ONLY ANESTHESI 08919 KADNE ALFONSO RAE A 3 DELIVERY ONLY 39630 [facility] DELIVERY 3 MARGARITA MARGARITA ONLY W/POSTPAR SAMMY CARE LOW 741 [facility] CERVICAL 3 [facility] INC INC SECTION CUL BACT 32330 COMBINED COMBINED XCPT 3 PHYSICIAN PHYSICIAN URINE S LA S LA BLOOD/STO OL AEROBIC ISOL DRUG SCR G0434 [facility] NOT 3 MARGARITA MARGARITA CHROMATOG RAPHIC; ANY NUMBER PT ENC GLUCOSE 00685 [facility] TOLERANCE 3 MARGARITA MARGARITA TEST GTT 3 SPECIMENS 40688 [facility] NONSTRESS 3 DENISE DENISE TEST URNLS DIP 85969 [facility] STICK/TAB INC INC LET REAGENT AUTO MICROSCOP Y US PREG 26631 [facility] UTERUS 3 HEALTH MARGARITA AFTER 1ST CLINIC OF [facility] GESTATION FRAMES V2020 [facility] PURCHASES 3 LENS V2784 [facility] POLYCARBO 3 NALINI OR EQUAL ANY INDEX PER LENS FITTING 38437 [facility] SPECTACLE 3 S XCPT APHAKIA MONOFOCAL OPHTH 41334 [facility] MEDICAL 3 XM&EVAL COMPRE NEW PT 1/> VST SPHERE V2100 [facility] D[facility] SINGLE 3 VISION PLANO +/- 4.00 PER LENS URNLS DIP 96242 [facility] STICK/TAB INC INC LET REAGENT AUTO MICROSCOP Y CULTURE 71514 [facility] BACTERIAL 3 [facility] INC INC QUANTTATI VE COLONY COUNT URINE URNLS DIP 01688 [facility] STICK/TAB INC INC LET REAGENT AUTO MICROSCOP Y THERAPEUT 78243 [facility] IC 3 [facility] PROPHYLAC INC INC TIC/DX INJECTION SUBQ/IM INJECTION J2405 [facility] ONDANSETR INC INC ON HCL PER 1 MG US PREG 46913 [facility] UTERUS 3 HEALTH MARGARITA REAL TIME CLINIC OF W/IMAGE MARE DCMTN TRANSVAG CYTP C/V 95674 PATHOLOGY [facility] AUTO THIN 3 & PENNY LYR CYTOLOGY PREPJ SCR LAB MNL RESCR PHYS IADNA 08551 PATHOLOGY [facility] NEISSERIA 3 & PEN[facility] CYTOLOGY GONORRHOE LAB AE AMPLIFIED PROBE TQ IADNA 96944 PATHOLOGY [facility] CHLAMYDIA 3 & PENNY CYTOLOGY TRACHOMAT LAB IS AMPLIFIED PROBE TQ CYTP 54218 PATHOLOGY [facility] CERVICAL/ 3 & PENNY VAGINAL CYTOLOGY REQ LAB INTERP PHYSICIAN ECG 04957 PRISCILA SWARTZ SWARTZ PRISCILA ROUTINE 1 ECG CONSULTIN W/LEAST G SRV 12 LDS I&R ONLY THER 59999 CONSUELO CORDERO PROPH/DX 1 JOSE JOSE NJX IV PUSH SINGLE/1S T SBST/DRUG DEEP D9220 CONSUELO CORDERO SEDATION/ 1 JOSE JOSE GENERAL ANESTHESI A-1ST 30 MINUTES ORTHOPANT 18828 CONSUELO CORDERO OGRAM 1 JOSE JOSE URNLS DIP 24568 [facility] STICK/TAB INC INC LET REAGENT AUTO MICROSCOP Y CULTURE 34510 [facility] BACTERIAL 1 [facility] INC INC QUANTTATI VE COLONY COUNT URINE URINE 47648 [facility] TEST INC INC VISUAL COLOR CMPRSN METHS BLS A0382 [facility] BROWN ROUTINE 1 AMBULANCE AMBULANCE DISPOSABL SERVICE SERVICE E SUPPLIES SIMPLE 16303 [facility] REPAIR 1 EMERGENCY BENIGNO F/E/E/N/L SERVICES /M 2.5CM/< GROUND A0425 [facility] MILEAGE 1 AMBULANCE AMBULANCE PER SERVICE SERVICE STATUTE MILE AMBULANCE A0429 [facility] SERVICE 1 AMBULANCE AMBULANCE BLS SERVICE SERVICE EMERGENCY TRANSPORT SUTURE OF 2751 [facility] 1 [facility] LACERATIO INC INC N OF LIP IADNA 72690 [facility] CHLAMYDIA 1 [facility]NOTE 2] TRACHOMAT IS AMPLIFIED PROBE TQ IADNA 11610 [facility] NEISSERIA 1 [facility]NOTE 2] GONORRHOE [place] [address] [facility] STREPTOCO 0 [facility] CCUS INC INC GROUP A IAADI 13621 [facility] F[facility] INFLUENZA 0 [facility] B VIRUS INC INC IAADI 22206 [facility]MEET FAY INFFLUENZ 0 [facility] A A VIRUS INC INC IM ADM 40680 SUMEET FAY PRQ ID 0 [facility] SUBQ/IM CENTER CENTER NJXS 1 VACCINE URINE 23795 SUMEET FAY 0 [facility] TEST INC INC VISUAL COLOR CMPRSN METHS CULTURE 72493 SUMEET FAY BCT 0 [facility] ISOL&PRSM INC INC PTV ID ISOLATE EA URINE CULTURE 90145 SUMEET FAY BACTERIAL 0 [facility] INC INC QUANTTATI VE COLONY COUNT URINE SUSCEPTIB 80689 SUMEET FAY LTY STDY 0 [facility] ANTIMICRB INC INC IAL MICRO/AGA R DILUTJ URNLS DIP 19254 SUMEET FAY 0 [facility] STICK/TAB INC INC LET REAGENT AUTO MICROSCOP Y URNLS DIP 73864 SUMEET FAY 0 [facility] STICK/TAB INC INC LET REAGENT AUTO MICROSCOP Y IADNA 82882 SUMEET FAY NEISSERIA 0 [facility] INC INC GONORRHOE AE AMPLIFIED PROBE TQ SMR PRIM 96337 SUMEET [place] [facility] WET 0 [facility] MOUNT INC INC NFCT AGT URINE 15714 SUMEET FAY 0 [facility] TEST INC INC VISUAL COLOR CMPRSN METHS IADNA 95791 SUMEET FAY CHLAMYDIA 0 [facility] INC INC TRACHOMAT IS AMPLIFIED PROBE TQ IM ADM 26830 SUMEET FAY PRQ ID [facility] SUBQ/IM CENTER CENTER NJXS 1 VACCINE IM ADM 87250 SUMEET FAY PRQ ID 0 [facility] SUBQ/IM CENTER CENTER NJXS 1 VACCINE CUL BACT 30365 COMBINED COMBINED XCPT 9 PHYSICIAN PHYSICIAN URINE S LAB S LAB BLOOD/STO OL AEROBIC ISOL ANTIBODY 31183 COMBINED COMBINED CHLAMYDIA 9 PHYSICIAN PHYSICIAN S LAB S LAB URNLS DIP 95752 SUMEET FAY 9 [facility] STICK/TAB INC INC LET REAGENT AUTO MICROSCOP Y CULTURE 63413 SUMEET FAY BACTERIAL 9 [facility] INC INC QUANTTATI VE COLONY COUNT URINE URINE 91445 SUMEET FAY 9 [facility] TEST INC INC VISUAL COLOR CMPRSN METHS URINE 70124 SUMEET FAY 9 [facility] TEST INC INC VISUAL COLOR CMPRSN METHS RADEX ABD 90588 [facility] [place] ANA, COMPL 9 MEDICAL AVERY AQT ABD IMAGING W/S/E/D ASSOCIATE VIEWS 1 S VIEW CH COMPREHEN 83597 SUMEET FAY SIVE 9 [facility] METABOLIC INC INC PANEL URNLS DIP 20711 SUMEET FAY 9 [facility] STICK/TAB INC INC LET REAGENT AUTO MICROSCOP Y BLOOD 66231 SUMEET FAY COUNT 9 [facility] COMPLETE INC INC AUTO&[place] [address] SUMEET FAY LIPASE 9 [facility] INC INC BILIRUBIN 67368 SUMEET FAY DIRECT 9 [place] [address] SUMEET FAY AMYLASE 9 [facility] INC INC INSERTION 66078 [facility], 8 [facility] [place] IUD [place] URINE 01473 [facility] DUBO[facility], 8 [facility] [place] CMPRSN [facility] METHS IIV3 32281 DHS/CO SUMEET VACCINE 8 [facility] VIRUS 0.5 BANK ACCT ML DOSAGE IM USE IADNA 54558 [facility] [place], CHLAMYDIA 8 [place] JEN D TRACHOMAT IS AMPLIFIED PROBE TQ CYTP 38474 [facility] [place], CERV/VAG 8 [place] JEN D AUTO THIN LAYER PREP MNL SCREEN IADNA 19820 [facility] [place], NEISSERIA 8 [place] [address] SCHULSTAD SCHULSTAD DELIVERY 8 , CRISTY , CRISTY ONLY ANESTHESI 19804 [facility] Trish RODRIGUEZ 8 ANESTH SHIELA L OF [place] [id number] [facility] OF [facility]ONE OF NON-IMMUN 8 [place] OLOGIC OTH/THN CYTOPATHI C HX&XM NML 40249 FAMILY LIANA, NB INFT 8 CARE R NOEMI INITIATIAileen ASSOCIATE N DX&[place] S [address]1992 [facility], DELIVERY 8 [facility] BEATRIZ J ONLY CLINIC OF W/POSTPAR [facility] 68329 WOMEN'S [facility], NONSTRESS 8 [facility] BEAT[facility]Z J TEST CLINIC OF [facility] 96793 WOMEN'S [facility], NONSTRESS 8 [facility] BEATRIZ J TEST CLINIC OF [facility] 36571 SUMEET FAY NONSTRESS 8 [facility] TEST INC INC 58575 SUMEET HARRISON NONSTRESS 8 [facility] TEST INC INC 04052 [facility], NONSTRESS 8 [facility] BEATRIZ J TEST CLINIC OF [facility] 09752 WOMEN'S [facility], NONSTRESS 8 [facility] BEATRIZ J TEST CLINIC OF [facility] CUL BACT 17709 COMBINED COMBINED XCPT 8 PHYSICIAN PHYSICIAN URINE S LAB S LAB BLOOD/STO OL AEROBIC ISOL 80712 [facility], BIOPHYSIC 8 [facility] AL CLINIC OF PROFILE W/O [place] NON-STRES [facility] S TESTING DOPPLER 30894 [facility], VELOCIMET 8 [facility] RY CLINIC OF UMBILICAL ARTERY [place] [facility] US PREG 50155 [facility], UTERUS 8 [facility] REAL TIME CLINIC OF F/U TRNSABDL [place] PER FETUS [facility] 25849 WOMEN'S CROSS, NONSTRESS 8 [facility] TEST CLINIC OF [place] [facility] URNLS DIP 71851 SUMEET FAY 8 [facility] STICK/TAB INC INC LET REAGENT AUTO MICROSCOP Y GLUCOSE 10495 [facility], TOLERANCE 8 [facility] TEST GTT CLINIC OF 3 [facility] GLUCOSE 75918 [facility], POST 8 [facility] GLUCOSE CLIN[facility]SE [facility] 07801 SUMEET FAY NONSTRESS 8 [facility] TEST INC INC URNLS DIP 36000 SUMEET FAY 8 [facility] STICK/TAB INC INC LET REAGENT [place] 96141 [facility], UTERUS 8 [facility] AFTER CLINIC OF TRIMEST [place] GESTATION [facility] ALPHA-FET 12391 SUMEET FAY OPROTEIN 8 [facility] 74276 [facility], UTERUS 8 [facility] REAL TIME CLINIC OF W/IMAGE DCMTN [place] TRANSVAG [facility] IAADIADOO 47859 [facility] [place] [place] [address] WOMEN'S CROSS, 8 [facility] UTERUS 14 CLINIC OF WK TRANSABDL [place] [facility] GESTAT IADNA 70374 [facility] ROMUL[place], NEISSERIA 8 [place] ANNA E GONORRHOE AE AMPLIFIED PROBE TQ CYTP 38000 [facility] [place], CERV/VAG 8 [place] ANNA Jaelyn AUTO THIN LAYER PREP MNL SCREEN IADNA 11477 [facility] [place], CHLAMYDIA 8 [place] ANNA E TRACHOMAT IS AMPLIFIED PROBE TQ MOLECULAR 15161 [facility] [place], DX AMP 8 [place] AN[place] E TARGET MULTIPLEX EA ADDL SEQ MOLEC 03807 [facility], SEP&ID HI 8 [place] AN[place] E RESOLU TQ EACH NUCLEIC ACID PREP MOLEC 54607 [facility], ENZYMATIC 8 [place] AN[place] E DIGESTION EA ENZYME TX MOLECULAR 19127 [facility], DX AMP 8 [place] ANNA E TARGET MULTIPLEX 1ST 2 SEQ MOLECULAR 07992 [facility] [place], 8 [place] AN[place] E DIAGNOSTI CS INTERPRET ATION & REPORT MUTATION 73394 [facility] [place], ID 8 [place] ANNA E ENZYMATIC LIG/PRIME R XTN 1 SGM EA LOW 74.1 Beatriz Dubose MD Encounters Encounter Start End Date Code Location Performer Type Date OFFICE 85286 [facility] SEDRICK BEST 7 7 PHYSICIAN T VISIT S GROUP 15 MINUTES EMERGENCY 05316 [facility] 6 [facility] T VISIT MODERATE SEVERITY EMERGENCY 02348 [facility] 6 6 PHYSICIAN U [facility] T VISIT MODERATE SEVERITY HOSPITAL SUMEET - 6 6 [facility] EMERGENC[facility] 59250 SUMEET 6 6 [facility] T VISIT LOW/MODER SEVERITY EMERGENCY 58404 [facility] 5 5 [facility] EMERGENCY T VISIT PHYS HIGH/URGE NT SEVERITY HOSPITAL SUMEET - 5 5 [facility] INPATIENT INC OFFICE 45055 [facility] SEDRICK BEST 5 5 PHYSICIAN MARGARITA T VISIT S GROUP 15 MINUTES OFFICE 09894 [facility] SED[facility]ICK BEST 5 5 PHYSICIAN MARGARITA T VISIT S GROUP 15 MINUTES OFFICE 96482 [facility] DUBOSE OUTPATIEN 4 4 PHYSICIAN MARGARITA T VISIT S GROUP 15 MINUTES HOSPITAL SUMEET - 4 4 [facility] OUTPATIEN INC T OFFICE 93736 [facility] OUTPATIEN 4 4 PHYSICIAN T VISIT 5 S GROUP MINUTES OFFICE 33832 [facility] DUBOSE OUTPATIEN 4 4 PHYSICIAN MARGARITA T VISIT S GROUP 15 MINUTES OFFICE 55510 [facility] OUTPATIEN 4 4 MARGARITA MARGARITA T VISIT 15 MINUTES OFFICE 58890 [facility] LARISSA OUTPATIEN 4 4 HEALTH RIMMA T VISIT ASSOCIATE 15 S PS MINUTES EMERGENCY 68112 [facility] 4 4 [facility] DEPARTMEN EMERGENCY T VISIT PHYS HIGH/URGE NT SEVERITY OFFICE 69621 SEDRICK MONTANAE OUTPATIEN 4 4 MARGARITA MARGARITA T VISIT 25 MINUTES OFFICE 13260 [facility] OUT[facility] 4 4 [employer] [facility] T VISIT 15 DEPARTMEN DEPARTMEN MINUTES T T OFFICE 25682 LARISSA LARISSA OUTPATIEN 4 4 RIMMA RIMMA T VISIT 15 MINUTES INITIAL 79441 [place] PREVENTIV 4 4 [employer] [facility] NEW PT T T AGE [id number] HOSPITAL JEANNINEON - [address] [facility] - 4 4 [facility] EMERGENCY [address] ST[address] 4 4 [facility] T VISIT MODERATE SEVERITY Inpatient CASSY Dubose MD (IN) 3 01:27 3 18:40 [facility] SUMEET - 3 3 [facility] INPATIENT INC OFFICE 71213 [facility] HARPEL OUTPATIEN 3 3 DENISE DENISE T VISIT 15 MINUTES OFFICE 79872 [facility] OUTPATIEN 3 3 HEALTH MARGARITA T VISIT CLINIC OF 15 MARE MINUTES OFFICE 96171 [facility] OUTPATIEN 3 3 MARGARITA MARGARITA T VISIT 15 MINUTES OFFICE 47353 [facility] OUTPATIEN 3 3 MARGARITA MARGARITA T VISIT 15 MINUTES OFFICE 21924 [facility] OUTPATIEN 3 3 MARGARITA MARGARITA T VISIT 15 MINUTES OFFICE 06112 [facility] OUTPATIEN 3 3 MARGARITA MARGARITA T VISIT 5 MINUTES OFFICE 30156 HARPEL HARPEL OUTPATIEN 3 3 DENISE DENISE T VISIT 15 MINUTES OFFICE 72133 [facility] OUTPATIEN 3 3 MARGARITA MARGARITA T VISIT 15 MINUTES Emergency STEPHANIE Guthrie MD (ER) 3 19:49 3 21:04 [facility] EMERGENCY 88884 SUMEET 3 3 [facility] DEPARTMEN INC T VISIT MODERATE SEVERITY HOSPITAL SUMEET - 3 3 [facility] OUTPATIEN INC T OFFICE 52935 [facility] OUTPATIEN 3 3 HEALTH MARGARITA T VISIT CLINIC OF 15 MARE MINUTES Emergency STEPHANIE Coleman MD (ER) 3 10:48 3 11:16 [facility] SUMEET - 3 3 [facility] OUTPATIEN INC T EMERGENCY 80864 SUMEET 3 3 [facility] DEPARTMEN INC T VISIT LIMITED/M INOR [facility] EMERGENCY 62713 [place]EV[place] JONES 3 3 EMERGENCY DEPARTMEN SERVICES T VISIT MODERATE SEVERITY HOSPITAL SUMEET - 3 3 [facility] OUTPATIEN INC T Emergency STEPHANIE Brown MD (ER) 3 15:16 3 15:36 [facility] EMERGENCY 54521 SUMEET 3 3 [facility] DEPARTMEN INC T VISIT LOW/MODER SEVERITY HOSPITAL SUMEET - 3 3 [facility] OUTPATIEN INC T EMERGENCY 74051 NEVILLE MCKEON 3 3 EMERGENCY DEPARTMEN SERVICES T VISIT HIGH/URGE NT SEVERITY OFFICE 08003 SUMEET FAY OUTPATIEN 1 1 [facility] HEALTH T VISIT CENTER CENTER 10 MINUTES OFFICE 21700 CONSUELO CORDERO OUTPATIEN 1 1 JOSE JOSE Michael [facility] 10 MINUTES HOSPITAL SUMEET - 1 1 [facility] OUTPATIEN INC T EMERGENCY 75993 NEVILLE LONG 1 1 EMERGENCY BENIG[facility] DEPARTMEN SERVICES T VISIT HIGH/URGE NT SEVERITY EMERGENCY 96412 SUMEET 1 1 [facility] DEPARTMEN INC T VISIT LOW/MODER SEVERITY HOSPITAL SUMEET - 1 1 [facility] OUTPATIEN INC T EMERGENCY 93833 SUMEET 1 1 [facility] DEPARTMEN INC T VISIT HIGH/URGE NT SEVERITY OFFICE 72670 SUMEET FAY OUTPATIEN 1 1 [facility] HEALTH T VISIT CENTER CENTER 15 MINUTES OFFICE 56360 SUMEET FAY OUTPATIEN 1 1 [facility] HEALTH T VISIT CENTER CENTER 15 MINUTES HOSPITAL SUMEET - 0 0 [facility] OUTPATIEN INC T EMERGENCY 43226 SUMEET 0 0 [facility] DEPARTMEN INC T VISIT MODERATE SEVERITY OFFICE 73349 SUMEET FAY OUTPATIEN 0 0 [facility] T VISIT CENTER CENTER 10 MINUTES HOSPITAL SUMEET - 0 0 [facility] OUTPATIEN INC T EMERGENCY 85927 SUMEET 0 0 [facility] DEPARTMEN INC T VISIT LOW/MODER SEVERITY EMERGENCY 25418 NEV[place]LE BROWN BAB 0 0 EMERGENCY DEPARTMEN SERVICES T VISIT HIGH/URGE NT SEVERITY HOSPITAL SUMEET - 0 0 [facility] OUTPATIEN INC T EMERGENCY 55114 SUMEET 0 0 [facility] DEPARTMEN INC T VISIT HIGH/URGE NT SEVERITY EMERGENCY 57219 NEV[place]LE NATASHA, 0 0 [facility] HIGH/URGE ASSOCIATE NT S SEVERITY OFFICE 48312 SUMEET FAY OUTPATIEN 0 0 [facility] CENTER 10 MINUTES OFFICE 60241 [facility] BARRERA OUTPATIEN 0 0 JAIMIE JAIMIE T VISIT 10 MINUTES OFFICE 12878 SUMEET FAY OUTPATIEN 0 0 [facility] NEW 10 CENTER CENTER MINUTES OFFICE 30595 [facility] ESTEPHANIA DUBOSE 9 9 HEALTH BEATRIZ J T VISIT CLINIC OF 15 MINUTES [place] [facility] EMERGENCY 62796 NEVILLE GUTHRIE, 9 9 EMERGENCY [facility] DEPARTMEN SERVICES T VISIT HIGH/URGE ASSOCIATE NT S SEVERITY HOSPITAL SUMEET - 9 9 [facility] OUTPATIEN INC T EMERGENCY 42104 SUMEET 9 9 [facility] DEPARTMEN INC T VISIT LOW/MODER SEVERITY OFFICE 25881 HOLLY BARRERA OUTPATIEN 9 9 JAIMIE JAIMIE T VISIT 10 MINUTES HOSPITAL SUMEET - 9 9 [facility] OUTPATIEN INC T EMERGENCY 48317 SUMEET 9 9 [facility] DEPARTMEN INC T VISIT MODERATE SEVERITY EMERGENCY 70678 KAVYA MARIANO, ELLIOTT 9 9 [facility] VISIT CORPORATI HIGH ON [facility]VERITY& [facility] 08401 [facility] ESTEPHANIA DUBOSE 8 8 HEALTH [facility]AT[facility]Z J T VISIT CLINIC OF 25 MINUTES [place] [facility] OFFICE 69165 [facility], OUTPATIEN 8 8 [facility]ALTH [facility] J T VISIT CLINIC OF 15 MINUTES [facility] OFFICE 47824 [facility], OUTPATIEN 8 8 HEALTH BEAT[facility] J T VISIT CLINIC OF 15 MINUTES [facility] OFFICE 82122 [facility], OUTPATIEN 8 8 [facility] VISIT CLINIC OF 15 MINUTES [facility] SUMEET - 8 8 [facility] OUTPATIEN [facility] HOSPITAL SUMEET - 8 8 [facility] OUTPATIEN [facility] OFFICE 64699 [facility], OUTPATIEN 8 8 [facility] VISIT CLINIC OF 15 MINUTES [facility] OFFICE 66765 [facility], OUTPATIEN 8 8 [facility] VISIT CLINIC OF 15 MINUTES [facility] OFFICE 78048 [facility]EN[facility], OUTPATIEN 8 8 [facility] VISIT CLINIC OF 15 MINUTES [facility] HOSPITAL SUMEET - 8 8 [facility] OUTPATIEN [facility] OFFICE 13933 [facility], OUTPATIEN 8 8 HEALTH [facility] T VISIT CLINIC OF 15 MINUTES [facility] OFFICE 94487 [facility]EN[facility], OUTPATIEN 8 8 HEALTH [facility] T VISIT CLINIC OF 15 MINUTES [facility] OFFICE 12680 [facility], OUTPATIEN 8 8 HEALTH [facility]AT[facility] J T VISIT 5 CLINIC OF MINUTES [facility] OFFICE 76643 [facility], OUTPATIEN 8 8 [facility]ALTH [facility] T VISIT CLINIC OF 15 MINUTES [facility] OFFICE 30756 [facility]EN[facility], OUTPATIEN 8 8 HEALTH [facility]AT[facility]Z J T VISIT CLINIC OF 15 MINUTES [facility] SUMEET - 8 8 [facility] T OFFICE 04399 [facility] 8 8 HEALTH [facility] J T [facility]ISIT CLINIC OF 15 MINUTES [facility] SUMEET - 8 8 [facility] OFF[facility] 93006 [facility] 8 8 HEALTH [facility]AT[facility]Z J T VISIT CLINIC OF 15 MINUTES [facility] OFFICE 79923 W[facility]EN'S SED[facility]ICK [facility] 8 8 HEALTH [facility] J T VISIT CLINIC OF 15 MINUTES [facility] OFFICE 29272 [facility] 8 8 HEALTH [facility] J T VISIT CLINIC OF 15 MINUTES [facility] BOSORINON - 8 8 [facility] T EMERGENCY 33274 JEANNINEON 8 8 [facility] T VISIT LOW/MODER SEVERITY EMERGENCY 78186 ANI JACOBSEN, 8 8 THOMPSON Rodriguez [facility] EMERGENCY T VISIT PHYS INC MODERATE SEVERITY
--- OUTSIDE RECORDS SUMMARY | 2017-01-17 18:46 | External Medical Summary Rpt | CCD ---
Author Author , REJI MENDOZA Address Unknown Phone [email or web address] Care Team Providers Care Chainstitch Hemmer Name Role Phone PEDRO CROSS, TAY, Unavailable Unavailable PEDRO JUAN ALBERTO GONZALEZ Unavailable Unavailable STEPH [facility] Unavailable Unavailable DEPARTMENT, [facility] DEPARTMENT [facility] Unavailable Unavailable DEPARTMENT, [facility] DEPARTMENT [facility] Unavailable Unavailable [facility], [facility] LARISSA STEPHENSON Unavailable Unavailable LARISSA KAY Unavailable Unavailable [facility] Unavailable Unavailable SERVICE, [facility] Unavailable Unavailable SERVICE, [facility] KLEIN JAM, KLEIN JAM Unavailable Unavailable ETHAN BENIGNO, ETHAN Unavailable Unavailable BENIGNO NAN DUBOSEE Unavailable Unavailable DUBOSE MARGARITA, DUBOSE Unavailable Unavailable MARGARITA DUBOSE MARGARITA, DUBOSE Unavailable Unavailable MARGARITA BEATRIZ DUBOSE, Unavailable Unavailable BEATRIZ DUBOSE [facility], [...] [facility], Unavailable Unavailable DEPT FOR SOCIAL [facility] Unavailable Unavailable [facility] [place] [facility]available [place]available [place], [facility] NATASHA BENIGNO, NATASHA Unavailable Unavailable BENIGNO STARR KAUR S, Unavailable Unavailable STARR KAUR S SEKOU ARGUELLO MD, Unavailable Unavailable JOS CISNEROS MD Unavailable Unavailable [facility]ISE [facility] Unavailable Unavailable [facility] Unavailable Unavailable [facility] Unavailable Unavailable INC, [facility] CORDERO JOSE, Unavailable Unavailable CORDERO JOSE CORDERO JOSE, Unavailable Unavailable CORDERO JOSE GONZÁLES JOURDAN, GONZÁLES JOURDAN Unavailable Unavailable GONZÁLES JOURDAN, GONZÁLES JOURDAN Unavailable Unavailable [facility], Unavailable Unavailable [facility] JEN JAY, Unavailable Unavailable JEN JAY RIGO TUS, RIGO Unavailable Unavailable TUS RIGO TUS, RIGO Unavailable Unavailable [facility], Unavailable Unavailable [facility] RODRIGUEZ, SHIELA L, Unavailable Unavailable RODRIGUEZ, SHIELA L [facility] T, Unavailable Unavailable HOLLYTIN T QUINTERO MAYNOR, QUINTERO Unavailable Unavailable MAYNOR NEVILLE PENNY, Unavailable Unavailable NEVILLE ANN [facility] Unavailable Unavailable SERVICES, [facility] ALFONSO RAE, ALFONSO RAE Unavailable Unavailable SOSA GLEASON, Unavailable Unavailable SOSA GLEASON Michael GAINES, Unavailable Unavailable Michael GAINES [facility] PRISCILA SWARTZ MD Unavailable Unavailable CONSULTING SRV, PRISCILA SWARTZ MD CONSULTING SRV [facility] Unavailable Unavailable EMS, [facility] Unavailable Unavailable EMS, [facility], Unavailable Unavailable PLL[facility], [facility] Unavailable Unavailable LAB, [facility] FERN JACOBSEN, ANN-MARIE, Unavailable Unavailable FERN Rodriguez [employer] [employer] [facility], Unavailable Unavailable [facility], Unavailable Unavailable [facility] Un[facility] Un[facility], [id number], Unavailable Unavailable [id number] Unavailable Unavailable [id number] # [id number], [facility] [address] # [id number] [facility], Unavailable Unavailable [facility] SHARMILASTAD CRISTY, Unavailable Unavailable SCHULSTAD, CRISTY JENA DALE, JENA DALE Unavailable Unavailable SOKAN BAB, SOKAN BAB Unavailable Unavailable SOTINGEANU ANISA, Unavailable Unavailable SOTINGEANU ANISA [facility] ANNA SEBASTIAN, Unavailable Unavailable ANNA SEBASTIAN, Unavailable Unavailable [facility] OLMOS, LUCRETIA Unavailable Unavailable NICKOLAS THERA [facility], [facility] Unavailable Unavailable [facility] Unavailable Unavailable #591, [facility] # Unavailable Unavailable [id number], [facility] # [id number] MAINE KAREN MAINE KAREN Unavailable Unavailable MAURICIO MARIANO, Unavailable Unavailable MAURICIO MARIANO EDW, ANIKA Unavailable Unavailable EDW [facility] Un[facility] Unavailable [facility], [facility] Purpose Continuity of Care Document - 04-21-2007 through 2016 Problems Code Diagnosis DOS Provider Status [id number] HIGH RISK 06-08-2016 [facility] [id number] UNS OPEN 09-23-2015 [facility] WOUND UNS [facility]ANS, TOES PLLC W/DAMAGE NAIL INITIAL R1030 LOWER 06-11-2015 [facility] ABDOMINAL PH[facility]IANS, PAIN PLLC UNSPECIFIED Z720 TOBACCO USE 06-11-2015 [facility] Z23 ENCOUNTER 04-22-2015 [facility] IMMUNIZATIO DEPARTMENT N 45936 PAIN IN 11-22-2014 [facility] [place] [facility]INT, RADIOLOGY ANKLE AND FOOT 34253 UNSPECIFIED 11-22-2014 [facility] SITE OF N EMERGENCY ANKLE PHYS SPRAIN AND STRAIN E8859 FALL FROM 11-22-2014 [facility] OTHER N EMERGENCY SLIPPING PHYS TRIPPING OR STUMBLING 38947 PREV C/S 05-13-2014 [facility] DELIV DELIV PHYSICIANS W/WO GROUP MENTION ANTPRTM COND 51397 C/S DELIV 05-13-2014 [facility] W/O INDICAT PHYSICIANS DELIV W/WO GROUP ANTPRTM COND V252 STERILIZATI 05-13-2014 [facility] ON PHYSICIANS GROUP V270 OUTCOME OF 05-13-2014 [facility] DELIVERY PHYSICIANS SINGLE GROUP LIVEBORN 63663 THREATENED 05-10-2014 [facility] PREMATURE PHYSICIANS LABOR GROUP ANTEPARTUM V221 SUPERVISION 04-18-2014 [place] [address] ABNORMAL 03-08-2014 [facility] MATERNAL PHYSICIANS GLUCOSE GROUP TOLERANCE ANTEPARTUM 29941 OTHER 02-15-2014 SEKOU ARGUELLO MD LABOR, ANTEPARTUM 650 NORMAL 02-14-2014 [facility] DELIVERY [facility] EMS V154 PERS HX 01-26-2014 DEPT [...] [place] N EMERGENCY PHYS 2859 UNSPECIFIED 12-20-2013 [facility] ANEMIA N EMERGENCY PHYS 38585 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 45793 MATERNAL 12-20-2013 [facility] ANEMIA, N EMERGENCY ANTEPARTUM PHYS 85717 ABDOMINAL 12-20-2013 [facility] PAIN, N EMERGENCY PERIUMBILIC PHYS 10398 PAP SMER 12-10-2013 [facility] CERV [facility] W/ATYPICAL SQUAMOUS CELLS UNDET 27233 CERV HIGH 12-10-2013 [facility] RISK HUMAN [facility] PAPILLOMAVI GINA DNA TEST POS V7242 12-10-2013 [facility] AVILA EXAMINATION OR TEST POSITIVE RESULT V745 SCREENING 12-10-2013 [facility] EXAMINATION LLC FOR VENEREAL DISEASE V2503 ENCOUNTER 11-15-2013 [facility] EMERGENCY HEALTH CONTRACEPT DEPARTMENT CNSL&PRESCR IPTION 6929 CONTACT 08-08-2013 LARISSA RIMMA DERMATITIS& OTHER ECZEMA DUE UNSPEC CAUSE 2724 OTHER AND 07-18-2013 [facility] HYPERLIPIDE SYLVESTER 4011 ESSENTIAL 07-18-2013 [place] HYPERTENSIO [facility], [facility] 82147 OTHER 07-18-2013 [place] [facility] FATIGUE [facility] V242 ROUTINE 07-18-2013 PICKLESIMER JR NBA FOLLOW-UP V2502 GENERAL 07-18-2013 [facility] CNSL HEALTH INITIATION DEPARTMENT OTH CONTRACEPT MEASURES V2689 OTHER 07-18-2013 [facility] SPECIFIED HEALTH PROCREATIVE DEPARTMENT MANAGEMENT 7245 UNSPECIFIED 03-30-2013 RIGO LYNN BACKACHE 8472 LUMBAR 03-30-2013 [facility] STRAIN STEVEN 9599 INJURY 03-30-2013 RIGO LYNN OTHER AND UNSPECIFIED UNSPECIFIED SITE V692 PROBLEMS 01-23-2013 SED[facility] AVILA RELATED TO HIGH-RISK SEXUAL BEHAVIOR 90566 MATERNAL RX 12-26-2012 [facility] DEPEND HEALTH COMPL [facility] CLINIC OF CB/PP UNS [place] EOC 96083 UNSPECIFIED 09-26-2012 [facility] VAGINITIS EMERG[facility] AND SERVICES [place] 38768 INFECTIONS 09-26-2012 [facility] HOSP GENITOURINA INC RY TRACT ANTEPARTUM 62027 OTH CURRENT 09-26-2012 [facility] NUR CONDS EMERGENCY CLASSIFIABL SERVICES E ELSW ANTPRTM 95596 CONTACT 09-06-2012 [facility] DERMATITIS& EMERGENCY OTHER SERVICES ECZEMA DUE TO SUNBURN 19793 MILD 06-17-2012 [facility] HYPEREMESIS EMERGENCY GRAVIDARUM SERVICES UNSPEC EPIS CARE 36840 MILD 06-17-2012 [facility] HYPEREMESIS MEM HOSP GRAVIDARUM INC ANTEPARTUM 78070 OTHER 05-25-2012 [facility] SPECIFED HEALTH COMPLICATIO CLINIC OF N [place] ANTEPARTUM 92714 PAP SMER 05-17-2012 PATHOLOGY & CERV W/LW CYTOLOGY GRADE LAB SQUAMOUS INTRAEPITH LES 2662 OTHER 02-08-2011 [facility] B-COMPLEX HEALTH DEFICIENCIE CENTER S V016 CONTACT 02-08-2011 [facility] WITH OR HEALTH EXPOSURE TO CENTER VENEREAL DISEASES V5869 LONG-TERM 01-28-2011 PRISCILA SWARTZ (CURRENT) USE OF CONSULTING OTHER SRV MEDICATIONS 5206 DISTURBANCE 11-11-2010 CONSUELO S IN TOOTH JOSE ERUPTION 5959 UNSPECIFIED 08-15-2010 [facility] CYSTITIS [facility]Y SERVICES 67400 OPEN WOUND 06-28-2010 [facility] LIP WITHOUT EMERGENCY MENTION SERVICES COMPLICATIO N E9060 DOG BITE 06-28-2010 [facility] AMBULANCE SERVICE 462 ACUTE 01-05-2010 [facility] PHARYNGITIS MEM HOSP INC V069 NEED PROPH 12-10-2009 [facility] VACCINATION HEALTH W/UNSPEC CENTER COMB VACCINE 7048 OTHER 08-14-2009 PRAVEENA BARRERA DISEASE OF HAIR&HAIR FOLLICLES 6262 EXCESSIVE 03-24-2009 [facility] OR [facility] OF MENSTRUATIO [place] N [facility] 1320 PEDICULUS 11-11-2008 TIERA BARRERA 5589 OTH&UNSPEC 04-01-2008 [facility] NONINFECTIO [facility] ITIS&COLITI S 29445 ABDOMINAL 04-01-2008 [place] [facility] V251 ENCOUNTER 02-12-2008 WOMEN'S INSERT/RAMIRO HEALTH JULES IU CLINIC OF CONTRACEPTI GERI VE DEVICE [facility] V7231 ROUTINE 02-02-2008 WOMEN'S GYNECOLOGIC HEALTH AL CLINIC OF EXAMINATION [place] [facility] V7388 SPECIAL SCR 02-02-2008 [facility] [place] [facility] EXAMINATION OTH SPEC CHLAMYDIAL DZ V762 SCREENING 02-02-2008 [facility] FOR [place] INC MALIGNANT NEOPLASM OF THE CERVIX 55903 OTHER 12-01-2007 [facility] MATERNAL ANESTH OF VENEREAL THE DISEASES [facility] WITH DELIVERY 68672 OTH SPEC 12-01-2007 [facility]OMEN'S INDICAT HEALTH CARE/INTERV CLINIC OF EN RELATED [place] L&D DELIV [facility] V220 SUPERVISION 12-01-2007 WOMEN'S OF NORMAL HEALTH FIRST CLINIC OF [place] [facility] V3000 SINGLE 12-01-2007 [facility] W/O 94660 POOR 11-09-2007 [facility] GROWTH MGMT HEALTH MOTH CLINIC OF ANTPRTM [place] COND/COMP PLL 05374 SPOTTING 05-04-2007 [facility] COMP HEALTH CLINIC OF ANTEPARTUM [place] COND/COMP PLLC 18532 UNSPECIFIED 04-29-2007 [facility] INFECTION [facility] IN CCE & UNS SITE V222 04-29-2007 [facility] Medications Na ND Rx Da Fi Fi [...] ve LO 37 20 20 18 AI IN 40 17 17 68 D AM 1 [...] CY MG #5 TA 91 BL ET OX 00 08 08 20 3 RI [...] 5- 8 32 # 5 03 93 IN 00 08 08 21 6 RI 89 [...] UT 20 11 11 D 1 PH VT AR CH MA AE CY L 03 93 8 # 03 93 MARCANO 53 05 05 10 5 RI 88 CH Ac LF 74 -2 -2 .0 TE 41 ES ti AM 60 1- 1- 00 67 TN ve ET 27 20 20 AI UT HO 20 11 11 D XA 5 PH VT ZO AR CH LE MA AE -T CY L MP 03 DS 93 8 TA # BL 03 ET 93 AM 00 04 04 20 10 RI 87 GA Ac OX 09 -0 -0 .0 TE 77 IN ti -C 32 3- 4- 00 69 EY ve LA 27 20 20 AI V 53 11 11 D VT 87 4 PH CH 5- AR AE [...] 80 20 20 DE 43 10 10 VT 0 PH CH AR AE MA L CY S OF CY NT HI AN A DO 53 06 06 0 14 7 EA 18 GA Ac XY 48 -2 -[address] 12 IN ti CY 90 6- 6- 00 SI 89 EY ve CL 11 20 20 DE IN 90 10 10 VT E 5 PH CH HY AR AE CL MA L AT CY S E 10 OF 0 MG CY NT CA HI P AN A 00 05 06 3 15 3 WI 70 LO Ac 18 -2 -0 .0 L- 71 RE ti 50 0- 3- 00 MA 43 NZ ve 61 20 20 RT 6 O 30 10 10 JASON 1 PH SE AR T MA CY # 10 05 91 00 05 06 3 15 3 WI 70 JASON Ac 18 -2 -0 .0 L- 71 SE ti 50 0- 3- 00 MA 43 ve 61 20 20 RT 6 T. 30 10 10 1 PH LO AR RE MA NZ CY O # MD 10 JASON 05 SE 91 00 05 05 3 15 3 WI 70 JASON Ac 18 -2 -2 .0 L- 71 SE ti 50 0- 0- 00 MA 43 ve 61 20 20 RT 6 T. 30 10 10 1 PH LO AR RE MA NZ CY O # MD 10 JASON 05 SE 91 CE 68 05 05 0 28 7 WI 70 LO Ac PH 18 -2 -2 .0 L- 71 RE ti AL 00 0- 0- 00 MA 43 NZ ve EX 12 20 20 RT 5 O IN 20 10 10 JASON 1 PH SE 50 AR T 0 MA MG CY # CA PS 10 UL 05 E 91 00 05 05 3 15 3 WI 70 LO Ac 18 -2 -2 .0 L- 71 RE ti 50 0- 0- 00 MA 43 NZ ve 61 20 20 RT 6 O 30 10 10 JASON 1 PH SE AR T MA CY # 10 05 91 NA 00 12 12 00 60 30 RI 81 CL Ac IN 09 -2 -3 .0 TE 45 AR [...] 72 20 20 DE 54 09 09 VT 0 PH CH AR AE MA L CY S OF CY NT HI AN A 65 12 12 00 9. 3 EA 15 GA Ac 16 -0 -[address] 36 IN ti 20 1- 7- 0 SI 63 EY ve 52 20 20 DE 01 09 09 VT 0 PH CH AR AE MA L [...] 00 20 10 RI 76 WI Ac IN 17 -0 -1 .0 TE 54 CK [...] 00 60 30 RI 76 CL Ac IN 09 -1 -0 .0 TE 31 AR ti OX 30 8- 1- 00 05 KE ve EN 14 20 20 AI 90 08 09 D DE 50 1 PH RE 0 AR K MG M J #3 TA 93 BL 8 ET VT 50 09 10 00 1. 1 TH 22 CL Ac RE 41 -2 -0 00 ER 32 AR ti NA 90 5- 9- 0 A 12 KE ve 42 20 20 CO 0 SY [address] 1 IN RE EM C K J 53 09 09 00 40 6 WA 69 CL Ac 74 -0 -2 .0 L- 86 AR ti 60 8- 6- 00 MA 41 KE ve 13 20 20 RT 7 10 08 08 DE 5 PH RE AR K MA J CY #5 91 00 09 09 00 30 5 RI 74 CL Ac 40 -1 -2 .0 TE 94 AR ti 60 2- 6- 00 06 KE ve 35 20 20 AI 70 08 08 D DE 5 PH RE AR K M J #3 93 8 OX 00 09 09 00 30 5 [...] -0 .0 L- 62 t ti 00 3- 7- 00 MA 68 Av ve 41 20 20 RT 2 ai 43 08 08 la 5 PH bl AR e MA CY #5 91 Immunization Name Date Rout CVX Reac Dose Comm Prov Is Faci e tion ent ider Refu lity Give sed n IIV4 01-2 158 BOUR No BOUR 6-20 BON BON [...] 0.5 ACCT ML DOSA GE IM USE Procedures Procedure DOS Code Location Performer Comment URINE 64532 [facility] 7 PHYSICIAN PHYSICIAN TEST S GROUP S GROUP VISUAL COLOR CMPRSN METHS URINE 85817 [facility] TEST INC INC VISUAL COLOR CMPRSN METHS URNLS DIP 62370 [facility] STICK/TAB INC INC LET REAGENT AUTO MICROSCOP Y IIV4 VACC 19917 [facility] [facility] SPLIT 6 CO HEALTH CO HEALTH VIRUS 0.5 ML DOS DEPARTMEN DEPARTMEN FOR IM T T USE RADEX 22902 [facility] [place] KLEIN JAM ANKLE 5 RADIOLOGY COMPLETE MINIMUM 3 VIEWS 11106 [facility] DUBOSE DELIVERY 5 PHYSICIAN MARGARITA ONLY S GROUP W/POSTPAR SAMMY CARE ANESTHESI 69430 [facility] A 5 ANESTH NICKOLAS OF THE DELIVERY BLUE ONLY LIG/TRNSX 15843 [facility] PHYSICIAN MARGARITA FALOPIAN S GROUP TUBE DEL/ABDML SURG 11638 [facility] SCHULSTAD DELIVERY 5 PHYSICIAN CAM ONLY S GROUP LOW 741 [facility] CERVICAL 5 [facility] INC INC SECTION OTH 6639 [facility] BILATERAL 5 [facility] INC INC DESTRUC/O CCLUSION FALLOPIAN TUBES 50947 [facility] NONSTRESS 5 PHYSICIAN MARGARITA TEST S GROUP IAADIADOO 65918 COMBINED COMBINED 5 PHYSICIAN PHYSICIAN STREPTOCO S LA S LA CCUS GROUP B GLUCOSE 11158 [facility] TOLERANCE 4 [facility] TEST GTT INC INC 3 SPECIMENS URNLS DIP 99853 [facility] STICK/TAB INC INC LET RGNT NON-AUTO W/O MICRSCP GLUCOSE 38111 [facility] TOLERANCE 4 [facility] EA ADDL INC INC BEYOND 3 SPECIMENS GLUCOSE 34055 [facility] POST 4 PHYSICIAN PHYSICIAN GLUCOSE S GROUP S GROUP DOSE 30314 SEKOU ARGUELLO NONSTRESS 4 JOS BRITO DENISE TEST AMB A0427 [facility] SERVICE 4 [facility] EMERGENCY EMS EMS TRANSPORT LEVEL 1 GROUND A0425 [facility] MILEAGE 4 [facility] STATUTE EMS EMS MILE CULTURE 21087 COMBINED COMBINED BACTERIAL 4 PHYSICIAN PHYSICIAN S LA S LA QUANTTATI VE COLONY COUNT URINE IM ADM 38362 PRIMARY LARISSA PRQ ID 4 HEALTH RIMMA SUBQ/IM ASSOCIATE NJXS 1 S PS VACCINE IIV3 26346 PRIMARY LARISSA VACCINE 4 HEALTH RIMMA SPLIT ASSOCIATE VIRUS 0.5 S PS ML DOSAGE [place] PREG 63535 [facility] DUBOSE UTERUS 4 MARGARITA MARGARITA AFTER 1ST TRIMEST GESTATION OPHTH 53068 [facility] 4 XM&EVAL COMPRE NEW PT 1/> VST IADNA 62622 [facility] PAPILLOMA 4 LLC MAYNOR VIRUS HUMAN AMPLIFIED PROBE TQ CYTP 92807 [facility] CERVICAL/ 4 LLC MAYNOR VAGINAL REQ INTERP PHYSICIAN CYTP C/V 21513 [facility] AUTO THIN 4 LLC MAYNOR LYR PREPJ SCR MNL RESCR PHYS IADNA 69418 [facility] NEISSERIA 4 LLC MAYNOR GONORRHOE AE AMPLIFIED PROBE TQ IADNA 56124 [facility], [facility] CHLAMYDIA 4 LLC MAYNOR TRACHOMAT IS AMPLIFIED PROBE TQ URINE 04330 [facility] DUBOSE 4 MARGARITA MARGARITA TEST VISUAL COLOR CMPRSN METHS URINE 87566 [facility] [facility] TEST VISUAL DEPARTMEN DEPARTMEN COLOR T T CMPRSN METHS IADNA 32998 [facility] CHLAMYDIA 4 [facility] TR[facility] DEPARTMEN DEPARTREGENCY MERIDIAN IS T T AMPLIFIED PROBE TQ IADNA 69100 [place] NEISSERIA 4 [facility] GONORRHOE DEPARTMEN DEPARTMEN AE T T AMPLIFIED PROBE TQ IADNA 34275 LARISSA DIAS NEISSERIA 4 [facility] GONORRHOE DEPARTREGENCY MERIDIAN DEPARTREGENCY MERIDIAN AE T T AMPLIFIED PROBE TQ COLLECTIO 09082 LARISSA DIAS N VENOUS 4 [facility] VENIPUNCT URE IADNA 46601 LARISSA DIAS CHLAMYDIA 4 [facility] TRACHOMAT DEPARTREGENCY MERIDIAN DEPARTREGENCY MERIDIAN IS T T AMPLIFIED PROBE TQ CYTP 74406 P[facility] PICKLESIM CERV/VAG 4 ER JR NBA ER JR NBA AUTO THIN LAYER PREP MNL SCREEN BLOOD 48977 LARISSA DIAS COUNT 4 [facility] AUTO&AUTO DIFRNTL WBC BASIC 01855 LARISSA DIAS METABOLIC [address] [place] [address] CALCIUM TOTAL LIPID 22325 [facility] PANEL [address] [place] [address] HEPATIC 49156 [facility] FUNCTION [address] [place] [address] [place] [address] LARISSA DIAS THYROID [address] [place] [address] NG HORMONE TSH CONTRACEP A4267 LARISSA DIAS TIVE 4 [facility] SUPPLY CONDOM DEPARTREGENCY MERIDIAN DEPARTREGENCY MERIDIAN MALE EACH T T INJECTION J1885 [address] KETOROLAC STEVEN STEVEN TROMETHAM INE PER 15 MG RADEX 26083 RIGO RIGO SPINE 4 TUS TUS LUMBOSACR AL 2/3 VIEWS THERAPEUT [address] PROPHYLAC STEVEN STEVEN TIC/DX INJECTION SUBQ/IM URINE 30182 [facility] DUBOSE 3 MARGARITA MARGARITA TEST VISUAL COLOR CMPRSN METHS ANESTHESI 58440 ALFONSO RAE ALFONSO RAE A 3 DELIVERY ONLY 80935 [facility]PE[facility] DELIVERY 3 DENISE DENISE ONLY 74853 [facility] DUBOSE DELIVERY 3 MARGARITA MARGARITA ONLY W/POSTPAR SAMMY CARE LOW 741 [facility] CERVICAL 3 [facility] INC INC SECTION CUL BACT 51612 COMBINED COMBINED XCPT 3 PHYSICIAN PHYSICIAN URINE S LA S LA BLOOD/STO OL AEROBIC ISOL DRUG SCR G0434 [facility] DU[facility] NOT 3 MARGARITA MARGARITA CHROMATOG RAPHIC; ANY NUMBER PT ENC GLUCOSE 67040 [facility] TOLERANCE 3 MARGARITA MARGARITA TEST GTT 3 SPECIMENS 51342 [facility] HARPEL NONSTRESS 3 DENISE DENISE TEST URNLS DIP 35214 [facility] STICK/TAB INC INC LET REAGENT AUTO MICROSCOP Y US PREG 96059 [facility] UTERUS 3 HEALTH MARGARITA AFTER [facility] [place] GESTATION OPHTH 79437 JENA DALE JENA DALE MEDICAL 3 XM&EVAL COMPRE NEW PT 1/> VST SPHERE V2100 JENA DALE JENA DALE SINGLE 3 VISION PLANO +/- 4.00 PER LENS FRAMES V2020 JENA DALE JENA DALE PURCHASES 3 LENS V2784 JENA DALE JENA DALE POLYCARBO 3 NALINI OR EQUAL ANY INDEX PER LENS FITTING 64726 JENA DALE JENA DALE SPECTACLE 3 S XCPT APHAKIA MONOFOCAL CULTURE 75483 [facility] BACTERIAL 3 [facility] INC INC QUANTTATI VE COLONY COUNT URINE URNLS DIP 52012 [facility] STICK/TAB INC INC LET REAGENT AUTO MICROSCOP Y URNLS DIP 66672 [facility] STICK/TAB INC INC LET REAGENT AUTO MICROSCOP Y THERAPEUT 03432 [facility] IC 3 [facility] PROPHYLAC INC INC TIC/DX INJECTION SUBQ/IM INJECTION J2405 [facility] ONDANSETR INC INC ON HCL PER 1 MG US PREG 66466 [facility] SEDRICK UTERUS 3 HEALTH MARGARITA REAL TIME CLINIC OF W/IMAGE MARE DCMTN TRANSVAG IADNA 30735 PATHOLOGY [facility] CHLAMYDIA 3 & [facility] CYTOLOGY TRACHOMAT LAB IS AMPLIFIED PROBE TQ CYTP C/V 57178 PATHOLOGY [place] AUTO THIN 3 & PENNY LYR CYTOLOGY PREPJ SCR LAB MNL RESCR PHYS CYTP 97968 PATHOLOGY [place] CERVICAL/ 3 & PENNY VAGINAL CYTOLOGY REQ LAB INTERP PHYSICIAN IADNA 82497 PATHOLOGY [place] NEISSERIA 3 & PENNY CYTOLOGY GONORRHOE LAB AE AMPLIFIED PROBE TQ ECG 78135 PRISCILA SWARTZ SWARTZ PRISCILA ROUTINE 1 ECG CONSULTIN W/LEAST G SRV 12 LDS I&R ONLY THER 23995 CONSUELO CORDERO PROPH/DX 1 JOSE JOSE NJX IV PUSH SINGLE/1S T SBST/DRUG DEEP D9220 CONSU[facility]O CORDERO SEDATION/ 1 JOSE JOSE GENERAL ANESTHESI A-1ST 30 MINUTES ORTHOPANT 06305 CONSU[facility]O CORDERO OGRAM 1 JOSE GARCIA URNLS DIP 31773 [facility] STICK/TAB INC INC LET REAGENT AUTO MICROSCOP Y CULTURE 79570 [facility] BACTERIAL 1 [facility] INC INC QUANTTATI VE COLONY COUNT URINE URINE 47761 [facility] TEST INC INC VISUAL COLOR CMPRSN METHS SIMPLE 74148 [place] NATASHA REPAIR 1 EMERGENCY BENIGNO F/E/E/N/L SERVICES /M 2.5CM/< GROUND A[address] [facility] MILEAGE 1 AMBULANCE AMBULANCE PER SERVICE SERVICE STATUTE MILE SUTURE OF 2751 SUMEET FAY 1 [facility] LACERATIO INC INC N OF LIP AMBULANCE [id number] [facility] SERVICE 1 AMBULANCE AMBULANCE BLS SERVICE SERVICE EMERGENCY TRANSPORT BLS [id number] [facility] ROUTINE 1 AMBULANCE AMBULANCE DISPOSABL SERVICE SERVICE E SUPPLIES IADNA 30179 SUMEET FAY NEISSERIA 1 [facility] GONORRHOE AE AMPLIFIED PROBE TQ IADNA 78229 SUMEET FAY CHLAMYDIA 1 [facility] [place] [address] SUMEET FAY STREPTOCO 0 [facility] CCUS INC INC GROUP A IAADI 05890 SUMEET FAY INFLUENZA 0 [facility] B VIRUS INC INC IAADI 75872 SUMEET FAY INFFLUENZ 0 [facility] A A VIRUS INC INC IM ADM 86198 SUMEET FAY PRQ ID 0 [facility] SUBQ/IM CENTER CENTER NJXS 1 VACCINE SUSCEPTIB 97158 SUMEET FAY LTY STDY 0 [facility] ANTIMICRB INC INC IAL MICRO/AGA R DILUTJ URNLS DIP 89628 SUMEET FAY 0 [facility] STICK/TAB INC INC LET REAGENT AUTO MICROSCOP Y CULTURE 17994 SUMEET FAY BCT 0 [facility] ISOL&PRSM INC INC PTV ID ISOLATE EA URINE CULTURE 44987 SUMEET FAY BACTERIAL 0 [facility] INC INC QUANTTATI VE COLONY COUNT URINE URINE 65831 SUMEET FAY 0 [facility] TEST INC INC VISUAL COLOR CMPRSN METHS URINE 42565 SUMEET FAY 0 [facility] TEST INC INC VISUAL COLOR CMPRSN METHS SMR PRIM 39072 SUMEET FAY SRC WET 0 [facility] MOUNT INC INC NFCT AGT IADNA 62435 SUMEET FAY CHLAMYDIA 0 [facility] INC INC TRACHOMAT IS AMPLIFIED PROBE TQ URNLS DIP 71177 SUMEET FAY 0 [facility] STICK/TAB INC INC LET REAGENT AUTO MICROSCOP Y IADNA 68145 SUMEET FAY NEISSERIA 0 [facility] INC INC GONORRHOE AE AMPLIFIED PROBE TQ IM ADM 93294 SUMEET FAY PRQ ID 0 [email or web address] SUBQ/IM CENTER CENTER NJXS 1 VACCINE IM ADM 35414 SUMEET FAY PRQ ID 0 [facility] SUBQ/IM C[facility] CENTER NJXS 1 VACCINE ANTIBODY 51828 COMBINED COMBINED CHLAMYDIA 9 [facility]ICIAN [facility]YSICIAN S LAB S LAB CUL BACT 39609 COMBINED COMBINED XCPT 9 PHYSICIAN PHYSICIAN URINE S LAB S LAB BLOOD/STO OL AEROBIC ISOL CULTURE 05838 SUMEET FAY BACTERIAL 9 [facility] INC INC QUANTTATI VE COLONY COUNT URINE URINE 92606 SUMEET FAY 9 [facility] TEST INC INC VISUAL COLOR CMPRSN METHS URNLS DIP 47067 SUMEET FAY 9 [facility] STICK/TAB INC INC LET REAGENT AUTO MICROSCOP Y URNLS DIP 99624 SUMEET FAY 9 [facility] STICK/TAB INC INC LET REAGENT AUTO MICROSCOP Y BILIRUBIN 72264 SUMEET FAY DIRECT 9 [place] [address] SUMEET FAY LIPASE 9 [facility] INC INC URINE 79746 SUMEET FAY 9 [facility] MEM HOSP TEST INC INC VISUAL COLOR CMPRSN METHS BLOOD 19004 SUMEET FAY COUNT 9 [facility] COMPLETE INC INC AUTO&[place] [address] SUMEET FAY AMYLASE 9 [facility] INC INC RADEX ABD 51888 GAYATHRI SOMMERS 9 MEDICAL AVERY AQT ABD IMAGING W/S/E/D ASSOCIATE VIEWS 1 S VIEW CH COMPREHEN 60910 SUMEET FAY SIVE 9 [facility] METABOLIC INC INC PANEL INSERTION 34573 [facility], 8 [facility] INTRAUTER CLINIC OF INE DEVICE [place] IUD [facility] URINE 02309 WOMEN'S DUBOSE, 8 [facility] TEST CLINIC OF VISUAL COLOR [place] CMPRSN [facility] METHS IIV3 [id number] [facility]/CO SUMEET VACCINE 8 [facility] VIRUS 0.5 BANK ACCT ML DOSAGE IM USE IADNA 20734 [facility] [place], NEISSERIA 8 [place] INC JEN D GONORRHOE AE AMPLIFIED PROBE TQ CYTP 71843 [facility] [place], CERV/VAG 8 [place] INC JEN D AUTO THIN LAYER PREP MNL SCREEN IADNA 37588 [facility] [place], CHLAMYDIA 8 [place] INC [place] [address] [facility] SCHUL[facility]AD DELIVERY 8 , CRISTY , CRISTY ONLY ANESTHESI 91838 [facility] TITUS 8 ANESTH SHIELA L [place] [id number] LABONE OF LABONE OF NON-IMMUN 8 [place] INC OLOGIC OTH/THN CYTOPATHI C 95651 [facility], DELIVERY 8 [facility] ONLY CLINIC OF W/POSTPAR [facility] [address] WOMEN'S [facility], NONSTRESS 8 [facility] TEST CLINIC OF [facility] HX&XM NML 55004 FAMILY LIANA, BALJIT INFT 8 CARE R NOEMI [facility] ASSOCIATE N DX&TX S [address]52 WOMEN'S [facility], NONSTRESS 8 [facility] TEST [facility]IN[facility] OF [facility] 38302 SUMEET FAY NONSTRESS 8 [facility] TEST INC INC 87359 SUMEET FAY NONSTRESS 8 [facility] TEST INC INC 70226 WOMEN'S [facility], NONSTRESS 8 [facility] TEST [facility] OF [facility] 77884 WOMEN'S DU[facility], NONSTRESS 8 [facility] TEST [facility]IN[facility] OF [facility] US PREG 62564 WOMEN'S SEDRICK, UTERUS 8 [facility] J REAL TIME CLINIC OF F/U TRNSABDL [place] PER FETUS [facility] CUL BACT 48018 COMBINED COMBINED XCPT 8 PHYSICIAN PHYSICIAN URINE S LAB S LAB BLOOD/STO OL AEROBIC ISOL DOPPLER 95677 [facility], VELOCIMET 8 [facility] RY [facility] 74820 WOMEN'S [place], BIOPHYSIC 8 [facility] AL CLINIC OF PROFILE W/O [place] NON-STRES [facility] S TESTING 75845 SUMEET FAY NONSTRESS 8 [facility] TEST INC INC URNLS DIP 94287 SUMEET FAY 8 [facility] STICK/TAB INC INC LET REAGENT AUTO MICROSCOP Y GLUCOSE 97462 [facility], TOLERANCE 8 [facility] TEST GTT CLINIC OF 3 SPECIMENS [place] [facility] GLUCOSE 02861 WOMEN'S [facility], POST 8 [facility] GLUCOSE CLINIC OF DOSE [place] [facility] URNLS DIP 40404 SUMEET FAY 8 [facility] STICK/TAB INC INC LET REAGENT AUTO MICROSCOP Y 22333 SUMEET FAY NONSTRESS 8 [facility] [place] 63378 [facility]OMEN'[facility], UTERUS 8 [facility] AFTER 1ST CLINIC OF TRIMEST [place] GESTATION [facility] ALPHA-FET 94111 SUMEET FAY OPROTEIN 8 [facility] [place] 51643 [facility]EN[facility], UTERUS 8 [facility] REAL TIME CLINIC OF W/IMAGE DCMTN [place] TRANSVAG [facility] IAADIADOO 45133 [facility] 8 [facility] [place] [address] WOMEN'S CROSS, 8 [facility] UTERUS 14 CLINIC OF WK TRANSABDL [place] [facility] GESTAT MOLECULAR 94684 [facility] [place], DX AMP 8 [place] INC ANNA E TARGET MULTIPLEX 1ST 2 SEQ IADNA 90006 [facility] [place], NEISSERIA 8 [place] INC ANNA E GONORRHOE AE AMPLIFIED PROBE TQ MOLEC 04057 [facility] [place], ENZYMATIC 8 [place] INC ANNA E DIGESTION EA ENZYME TX MOLECULAR 54549 [facility] [place], 8 [place] ANNA Jaelyn DIAGNOSTI CS INTERPRET ATION & REPORT MUTATION 12134 [facility] [place], ID 8 [place] INC ANNA E ENZYMATIC LIG/PRIME R XTN 1 SGM EA IADNA 44721 [facility] [place], CHLAMYDIA 8 [place] INC ANNA E TRACHOMAT IS AMPLIFIED PROBE TQ CYTP 42793 [facility] [place], CERV/VAG 8 [place] INC ANNA E AUTO THIN LAYER PREP MNL SCREEN MOLECULAR 15153 [facility] [place], DX AMP 8 [place] INC ANNA E TARGET MULTIPLEX EA ADDL SEQ MOLEC 87168 [facility], SEP&ID HI 8 [place] INC ANNA E ABHISHEKU TQ EACH NUCLEIC ACID PREP Encounters Encounter Start End Date Code Location Performer Type Date OFFICE 80800 [facility] DUBOSE OUTPATIEN 7 7 PHYSICIAN T VISIT S GROUP 15 MINUTES EMERGENCY 99971 SHASTA STEWART 6 6 PHYSICIAN U [facility] T VISIT MODERATE SEVERITY HOSPITAL SUMEET - 6 6 [facility] OUTPATIEN INC T EMERGENCY 23329 SUMEET 6 6 [facility] T VISIT LOW/MODER SEVERITY EMERGENCY 22420 SHASTA STEWART 6 6 PHYSICIAN U [facility] T VISIT MODERATE SEVERITY EMERGENCY 75357 ANI AVENDANO 5 5 [facility] EMERGENCY T VISIT PHYS HIGH/URGE NT SEVERITY HOSPITAL SUMEET - 5 5 [facility] INPATIENT INC OFFICE 18747 [facility] DUBOSE OUTPATIEN 5 5 PHYSICIAN MARGARITA T VISIT S GROUP 15 MINUTES OFFICE 66329 [facility] DUBOSE OUTPATIEN 5 5 PHYSICIAN MARGARITA T VISIT S GROUP 15 MINUTES OFFICE 62945 [facility] DUBOSE OUTPATIEN 4 4 PHYSICIAN MARGARITA T VISIT S GROUP 15 MINUTES HOSPITAL SUMEET - 4 4 [facility] OUTPATIEN INC T OFFICE 03603 [facility] OUTPATIEN 4 4 PHYSICIAN T VISIT 5 S GROUP MINUTES OFFICE 16534 [facility] DUBOSE OUTPATIEN 4 4 PHYSICIAN MARGARITA T VISIT S GROUP 15 MINUTES OFFICE 62193 [facility] DUBOSE OUTPATIEN 4 4 MARGARITA MARGARITA T VISIT 15 MINUTES OFFICE 16718 PRIMARY LARISSA OUTPATIEN 4 4 HEALTH RIMMA T VISIT ASSOCIATE 15 S PS MINUTES EMERGENCY 94005 ANI DONALDSON 4 4 [facility] DEPARTMEN EMERGENCY T VISIT PHYS HIGH/URGE NT SEVERITY OFFICE 34469 SEDRICK DUBOSE OUTPATIEN 4 4 MARGARITA MARGARITA T VISIT 25 MINUTES OFFICE 19453 LARISSA DIAS OUTPATIEN 4 4 [place] [employer] [facility] T VISIT 15 DEPARTMEN DEPARTMEN MINUTES T T OFFICE 84111 LARISSA DIAS OUTPATIEN 4 4 RIMMA RIMMA T VISIT 15 MINUTES INITIAL 13880 LARISSA PAEZON PREVENTIV 4 4 [place] [employer] [facility] E MEDICINE DEPARTREGENCY [facility] DEPARTMEN NEW PT T T AGE 18-39YRS HOSPITAL JEANNINEON - 4 4 [facility] T EMERGENCY 48626 SOSA SWAN 4 4 [facility] DEPARTMEN T VISIT MODERATE SEVERITY HOSPITAL ST[facility] - [address] [facility] SUMEET - 3 3 [facility] INPATIENT [facility] OFFICE 12278 HARPEL HARPEL OUTPATIEN 3 3 DENIES DENISE T VISIT 15 MINUTES OFFICE 09938 [facility] OUTPATIEN 3 3 HEALTH MARGARITA T VISIT CLINIC OF 15 MARE MINUTES OFFICE 02233 DUBOSE DUBOSE OUTPATIEN 3 3 MARGARITA MARGARITA T VISIT 15 MINUTES OFFICE 44345 DU[facility] DUBOSE OUTPATIEN 3 3 MARGARITA MARGARITA T VISIT 15 MINUTES OFFICE 45918 DUBOSE DUBOSE OUTPATIEN 3 3 MARGARITA MARGARITA T VISIT 15 MINUTES OFFICE 55990 DUBOSE DUBOSE OUTPATIEN 3 3 MARGARITA MARGARITA T VISIT 5 MINUTES OFFICE 04254 HARPEL HARPEL OUTPATIEN 3 3 DENISE DENISE T VISIT 15 MINUTES OFFICE 24966 DUBOSE DUBOSE OUTPATIEN 3 3 MARGARITA MARGARITA T VISIT 15 MINUTES EMERGENCY 70425 NEVILLE KAUR 3 3 EMERGENCY [facility] DEPARTMEN SERVICES T VISIT MODERATE SEVERITY HOSPITAL SUMEET - 3 3 [facility] OUTPATIEN INC T OFFICE 58562 [facility] OUTPATIEN 3 3 HEALTH MARGARITA T VISIT CLINIC OF 15 MARE MINUTES HOSPITAL SUMEET - 3 3 [facility] OUTPATIEN INC T EMERGENCY 14481 SUMEET 3 3 [facility] DEPARTMEN INC T VISIT LIMITED/M INOR PROB EMERGENCY 64947 NEVILLE JONES 3 3 EMERGENCY DEPARTMEN SERVICES T VISIT MODERATE SEVERITY HOSPITAL SUMEET - 3 3 [facility] OUTPATIEN INC T HOSPITAL SUMEET - 3 3 [facility] OUTPATIEN INC T EMERGENCY 42415 NEVILLE MCKEON 3 3 EMERGENCY DEPARTMEN SERVICES T VISIT HIGH/URGE NT SEVERITY EMERGENCY 12495 SUMEET 3 3 [facility] DEPARTMEN INC T VISIT LOW/MODER SEVERITY OFFICE 02064 SUMEET FAY OUTPATIEN 1 1 [facility] T VISIT CENTER CENTER 10 MINUTES OFFICE 21055 CONSUELO CORDERO OUTPATIEN 1 1 JOSE JOSE T CLAUDIA 10 MINUTES EMERGENCY 29433 NEVILLE LONG 1 1 EMERGENCY [facility] DEPARTMEN SERVICES T VISIT HIGH/URGE NT SEVERITY HOSPITAL SUMEET - 1 1 [facility] OUTPATIEN INC T EMERGENCY 66786 SUMEET 1 1 [facility] DEPARTMEN INC T VISIT LOW/MODER SEVERITY EMERGENCY 63590 SUMEET 1 1 [facility] DEPARTMEN INC T VISIT HIGH/URGE NT SEVERITY HOSPITAL SUMEET - 1 1 [facility] OUTPATIEN INC T OFFICE 44695 SUMEET [facility]AY OUTPATIEN 1 1 [facility] 15 MINUTES OFFICE 51874 SUMEET FAY OUTPATIEN 1 1 [facility] 15 MINUTES EMERGENCY 84753 SUMEET 0 0 [facility] DEPARTMEN INC T VISIT MODERATE SEVERITY HOSPITAL SUMEET - 0 0 [facility] OUTPATIEN INC T OFFICE 91930 SUMEET FAY OUTPATIEN 0 0 [facility] 10 MINUTES HOSPITAL SUMEET - 0 0 [facility] OUTPATIEN INC T EMERGENCY 57633 NEVILLE MCKEON 0 0 EMERGENCY DEPARTMEN SERVICES T VISIT HIGH/URGE NT SEVERITY EMERGENCY 30032 SUMEET 0 0 [facility] DEPARTMEN INC T VISIT LOW/MODER SEVERITY EMERGENCY 87764 SUMEET 0 0 [facility] DEPARTMEN INC T VISIT HIGH/URGE NT SEVERITY HOSPITAL SUMEET - 0 0 [facility] OUTPATIEN INC T EMERGENCY 10469 NEVILLE KAUR, 0 0 EMERGENCY [facility] DEPARTMEN SERVICES T VISIT HIGH/URGE ASSOCIATE NT S SEVERITY OFFICE 12183 SUMEET [facility] OUTPATIEN 0 0 [facility] 10 MINUTES OFFICE 90624 HOLLY BARRERA OUTPATIEN 0 0 [facility] T T VISIT 10 MINUTES OFFICE 71007 SUMEET FAY OUTPATIEN 0 0 [facility] [address] CENTER MINUTES OFFICE 34573 [facility]'S ESTEPHANIA DUBOSE 9 9 [facility] T VISIT CLINIC OF 15 MINUTES [facility] EMERGENCY 00326 SUMEET 9 9 [facility] DEPARTMEN INC T VISIT LOW/MODER SEVERITY HOSPITAL SUMEET - 9 9 [facility] OUTPATIEN INC T EMERGENCY 11559 NEVILLE KAUR, 9 9 EMERGENCY [facility] DEPARTREGENCY [facility] T VISIT HIGH/URGE ASSOCIATE NT S SEVERITY OFFICE 52039 HOLLY BARRERA OUTPATIEN 9 9 JAIMIE AJIMIE T VISIT 10 MINUTES HOSPITAL SUMEET - 9 9 [facility] OUTPATIEN INC T EMERGENCY 81186 KAVYA MARIANO, DEPT 9 9 [facility] VISIT CORPORATI HIGH ON SEVERITY& THREAT FUN EMERGENCY 69158 SUMEET 9 9 [facility] T VISIT MODERATE SEVERITY OFFICE 90962 [facility] DUBO[facility], OUTPATIEN 8 8 [facility] T VISIT CLINIC OF 25 MINUTES [facility] OFFICE 69899 [facility]EN[facility] DUBO[facility], OUTPATIEN 8 8 [facility] T VISIT CLINIC OF 15 MINUTES [facility] OFFICE 70872 WOMEN'S DUBOSE, OUTPATIEN 8 8 [facility] T VISIT CLINIC OF 15 MINUTES [facility] OFFICE 63226 WOMEN'S DUBOSE, OUTPATIEN 8 8 [facility] T VISIT CLINIC OF 15 MINUTES [facility] SUMEET - 8 8 [facility] OUTPATIEN [facility] SUMEET - 8 8 [facility] OUTPATIEN INC T OFFICE 96089 [facility] DU[facility], OUTPATIEN 8 8 [facility] T VISIT CLINIC OF 15 MINUTES [facility] OFFICE 06200 WOMEN'S DUBO[facility], OUTPATIEN 8 8 [facility] T VISIT CLINIC OF 15 MINUTES [facility] OFFICE 94888 [facility]EN[facility]S DUBO[facility], OUTPATIEN 8 8 [facility] T VISIT CLINIC OF 15 MINUTES [facility] SUMEET - 8 8 [facility] OUTPATIEN INC T OFFICE 63160 [facility]EN'[facility] DUBO[facility], OUTPATIEN 8 8 [facility] J T VISIT CLINIC OF 15 MINUTES [place] [facility] OFFICE 81667 WOMEN'S DUBOSE, OUTPATIEN 8 8 [facility] T VISIT CLINIC [facility] 15 [facility]ES [facility] OFFICE 71936 [facility] DUBO[facility], OUTPATIEN 8 8 [facility] J T VISIT 5 CLINIC [facility]ES [facility] OFFICE 15818 WOMEN'S DUBO[facility], OUTPATIEN 8 8 [facility] T [facility] 78725 WOMEN'S DUBOSE, OUTPATIEN 8 8 [facility] J T VISIT CLINIC OF 15 MINUTES [facility] SUMEET - 8 8 [facility] OUTPATIEN INC T OFFICE 28816 WOMEN'S DUBO[facility], OUTPATIEN 8 8 [facility] J T VISIT CLINIC OF 15 MINUTES [facility] SUMEET - 8 8 [facility] OUTPATIEN INC T OFFICE 86115 WOMEN'S DUBOSE, OUTPATIEN 8 8 [facility] J T VISIT CLINIC [facility] 15 [facility]ES [facility] OFFICE 54735 WOMEN'S DUBOSE, OUTPATIEN 8 8 [facility] T [facility]IT [facility] 29027 WOMEN'S DUBOSE, OUTPATIEN 8 8 [facility] J T VISIT CLINIC OF 15 MINUTES [facility] EMERGENCY 99906 [facility] 8 [facility] T VISIT LOW/MODER SEVERITY EMERGENCY 52496 [facility] ANN-MARIE, 8 8 [facility] R [facility] EMERGENCY T VISIT PHYS INC MODERATE SEVERITY HOSPITAL [place] - 8 8 [facility] T
--- OUTSIDE RECORDS SUMMARY | 2017-01-17 18:46 | External Medical Summary Rpt | CCD ---
Author Author , REJI MENDOZA Address Unknown Phone [email or web address] Care Team Providers Care Director It Project Name Role Phone PEDRO CROSS, TAY, Unavailable Unavailable PEDRO JUAN ALBERTO GONZALEZ Unavailable Unavailable STEPH [facility] Unavailable Unavailable DEPARTMENT, [facility] DEPARTMENT [facility] Unavailable Unavailable DEPARTMENT, [facility] DEPARTMENT [facility] Unavailable Unavailable [facility], [facility] LARISSA STEPHENSON Unavailable Unavailable LARISSA KAY Unavailable Unavailable [facility] Unavailable Unavailable SERVICE, [facility] Unavailable Unavailable SERVICE, [facility] KLEIN JAM, KLEIN JAM Unavailable [...] [facility], Unavailable Unavailable DEPT FOR SOCIAL [facility] Unavailable Unavailable [facility] [place] [facility] Unavailable [place] NATASHA BENIGNO, NATAHSA Unavailable Unavailable BENINGO STARR KAUR S, Unavailable Unavailable STARR KAUR S SEKOU ARGUELLO MD, Unavailable Unavailable JOS CISNEROS MD Unavailable Unavailable [facility]ISE [facility] Unavailable Unavailable [facility] Unavailable Unavailable [facility] Unavailable Unavailable INC, [facility] CORDERO JOSE, Unavailable Unavailable CORDERO JOSE CORDERO JOSE, Unavailable Unavailable CORDERO JOSE GONZÁLES JOURDAN, GONZÁLES JOURDAN Unavailable Unavailable GONZÁLES JOURDAN, GONZÁLES JOURDAN Unavailable Unavailable [facility], Unavailable Unavailable [facility] JEN JAY, Unavailable Unavailable JEN JAY RIGO TUS, RIGO Unavailable Unavailable TUS RIGO TUS, RIGO Unavailable Unavailable [facility], Unavailable Unavailable [facility] RODRIGUEZ, SHIELA L, Unavailable Unavailable RODRIGUEZ, SHIELA L [facility], Unavailable Unavailable [facility] QUINTERO MAYNOR, QUINTERO Unavailable Unavailable MAYNOR NEVILLE PENNY, Unavailable Unavailable [facility] ANN [facility] Unavailable Unavailable SERVICES, [facility] ALFONSO RAE, ALFONSO RAE Unavailable Unavailable SOSA GLEASON, Unavailable Unavailable [facility] GLEASON Michael GAINES, Unavailable Unavailable Michael GAINES [facility] PRISCILA SWARTZ MD Unavailable Unavailable CON[facility]ING [facility], PRISCILA SWARTZ MD [facility] Unavailable Unavailable [facility], [facility] Unavailable Unavailable EMS, [facility], Unavailable Unavailable PLLC, [facility] [...] PHARM #[id number] [facility] Unavailable Unavailable [id number] # [id number], [facility] [id number] # [id number] [facility], Unavailable Unavailable [facility] [...] PHARMACY #591 [facility] # Unavailable Unavailable [id number], [facility] # [id number] MAINE KAREN MAINE KAREN Unavailable Unavailable MAURICIO MARIANO, Unavailable Unavailable MAURICIO MARIANO EDW, ANIKA Unavailable Unavailable EDW [facility] Unavailable Unavailable OF [place], [facility] [place] Purpose Continuity of Care Document - 04-21-2007 through 2016 Problems Code Diagnosis DOS Provider Status [id number] HIGH RISK 06-08-2016 [facility] [id number] UNS OPEN 09-23-2015 [facility] W[facility]NS [facility], TOES PLLC W/DAMAGE NAIL INITIAL R1030 LOWER 06-11-2015 [facility] ABDOMINAL [facility]ANS, PAIN PLLC UNSPECIFIED Z720 TOBACCO USE 06-11-2015 [facility] Z23 ENCOUNTER 04-22-2015 [facility] IMMUNIZATIO DEPARTMENT N 42510 PAIN IN 11-22-2014 [facility] [place] JOINT, RADIOLOGY ANKLE AND FOOT 79625 UNSPECIFIED 11-22-2014 [facility] SITE OF N EMERGENCY ANKLE PHYS SPRAIN AND STRAIN E8859 FALL FROM 11-22-2014 [facility] OTHER N EMERGENCY SLIPPING PHYS TRIPPING OR STUMBLING 54874 PREV C/S 05-13-2014 [facility] DELIV DELIV PHYSICIANS W/WO GROUP MENTION ANTPRTM COND 63983 C/S DELIV 05-13-2014 [facility] W/O INDICAT PHYSICIANS DELIV W/WO GROUP ANTPRTM COND V252 STERILIZATI 05-13-2014 [facility] ON PHYSICIANS GROUP V270 OUTCOME OF 05-13-2014 [facility] DELIVERY PHYSICIANS SINGLE GROUP LIVEBORN 34536 THREATENED 05-10-2014 [facility] PREMATURE PHYSICIANS LABOR GROUP ANTEPARTUM V221 SUPERVISION 04-18-2014 COM[place] [address] ABNORMAL 03-08-2014 [facility] MATERNAL PHYSICIANS GLUCOSE GROUP TOLERANCE ANTEPARTUM 37253 OTHER 02-15-2014 SEKOU ARGUELLO MD LABOR, ANTEPARTUM 650 NORMAL 02-14-2014 [facility] DELIVERY [facility] V154 PERS HX 01-26-2014 DEPT FOR [...] [place] N EMERGENCY PHYS 2859 UNSPECIFIED 12-20-2013 [facility] ANEMIA N EMERGENCY PHYS 27330 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 31831 MATERNAL 12-20-2013 [facility] ANEMIA, N EMERGENCY ANTEPARTUM PHYS 70380 ABDOMINAL 12-20-2013 [facility] PAIN, N EMERGENCY PERIUMBILIC PHYS 25140 PAP SMER 12-10-2013 [facility] C[facility] W/ATYPICAL SQUAMOUS CELLS UNDET 26956 CERV HIGH 12-10-2013 [facility] RISK [facility]AN [facility] PAPILLOMAVI GINA DNA TEST POS V7242 12-10-2013 SED[facility] AVILA EXAMINATION OR TEST POSITIVE RESULT V745 SCREENING 12-10-2013 [facility] EXAMINATION LLC FOR VENEREAL DISEASE V2503 ENCOUNTER 11-15-2013 [facility] EMERGENCY HEALTH CONTRACEPT DEPARTMENT CNSL&PRESCR IPTION 6929 CONTACT 08-08-2013 LARISSA RIMMA DERMATITIS& OTHER ECZEMA DUE UNSPEC CAUSE 2724 OTHER AND 07-18-2013 [facility] HYPERLIPIDE SYLVESTER 4011 ESSENTIAL 07-18-2013 BREA HYPERTENSIO [facility] N, [facility] 11519 OTHER 07-18-2013 BREA MALMARTINS [facility] FATIGUE [facility] V242 ROUTINE 07-18-2013 PICKLESIM[facility] JR NBA FOLLOW-UP V2502 GENERAL 07-18-2013 [facility] CNSL HEALTH INITIATION DEPARTMENT OTH CONTRACEPT MEASURES V2689 OTHER 07-18-2013 [facility] SPECIFIED HEALTH PROCREATIVE DEPARTMENT MANAGEMENT 7245 UNSPECIFIED 03-30-2013 RIGO LYNN BACKACHE 8472 LUMBAR 03-30-2013 [facility] STRAIN STEVEN 9599 INJURY 03-30-2013 RIGO LYNN OTHER AND UNSPECIFIED UNSPECIFIED SITE V692 PROBLEMS 01-23-2013 SED[facility] AVILA RELATED TO HIGH-RISK SEXUAL BEHAVIOR 26007 MATERNAL RX 12-26-2012 [facility] DEPEND HEALTH COMPL PG CLINIC OF CB/PP UNS [place] EOC 32558 UNSPECIFIED 09-26-2012 [facility] SERVICES VULVOVAGINI TIS 97229 INFECTIONS 09-26-2012 [facility] HOSP GENITOURINA INC RY TRACT ANTEPARTUM 29070 OTH CURRENT 09-26-2012 [facility] NUR CONDS EMERGENCY CLASSIFIABL SERVICES E ELSW ANTPRTM 89944 CONTACT 09-06-2012 [facility] DERMATITIS& EMERGENCY OTHER SERVICES ECZEMA DUE TO SUNBURN 53600 MILD 06-17-2012 [facility] HYPEREMESIS EMERGENCY GRAVIDARUM SERVICES UNSPEC EPIS CARE 76440 MILD 06-17-2012 [facility] HYPEREMESIS MEM HOSP GRAVIDARUM INC ANTEPARTUM 02664 OTHER 05-25-2012 [facility]OMEN'S SPECIFED HEALTH COMPLICATIO CLINIC OF N [place]ARE ANTEPARTUM 65587 PAP SMER 05-17-2012 PATHOLOGY & CERV W/LW [...] 5959 UNSPECIFIED 08-15-2010 [facility] CYSTITIS [facility] 14192 OPEN WOUND 06-28-2010 [facility] LIP WITHOUT EMERGENCY MENTION SERVICES COMPLICATIO N E9060 DOG BITE 06-28-2010 [facility] AMBULANCE SERVICE 462 ACUTE 01-05-2010 [facility] PHARYNGITIS MEM HOSP INC V069 NEED PROPH 12-10-2009 [facility] HORN VACCINATION HEALTH W/UNSPEC CENTER COMB VACCINE 7048 OTHER 08-14-2009 PRAVEENA BARRERA DISEASE OF HAIR&HAIR FOLLICLES 6262 EXCESSIVE 03-24-2009 [facility] OR [facility] OF MENSTRUATIO [place] [facility] 1320 PEDICULUS 11-11-2008 TIERA BARRERA 5589 OTH&UNSPEC 04-01-2008 [facility] NONINFECTIO [facility] GASTROENTER ITIS&COLITI S 87098 ABDOMINAL 04-01-2008 [place] [facility] V251 ENCOUNTER 02-12-2008 WOMEN'S INSERT/[facility] HE[facility] JULES IU CLINIC OF CONTRACEPTI GERI VE DEVICE [facility] V7231 ROUTINE 02-02-2008 [facility]OMEN'S GYNECOLOGIC HEALTH AL CLINIC OF EXAMINATION [place] [facility] V7388 SPECIAL SCR 02-02-2008 [facility] [place] [facility] EXAMINATION OTH SPEC CHLAMYDIAL DZ V762 SCREENING 02-02-2008 [facility] FOR [place] INC MALIGNANT NEOPLASM OF THE CERVIX 82768 OTHER 12-01-2007 COMMUNITY MATERNAL ANESTH OF VENEREAL THE DISEASES [facility] WITH DELIVERY 38190 OTH SPEC 12-01-2007 [facility]OMEN'S INDICAT HEALTH CARE/INTERV CLINIC OF EN RELATED [place] L&D DELIV [facility] V220 SUPERVISION 12-01-2007 WOMEN'S OF NORMAL HEALTH FIRST CLINIC OF [place] [facility] V3000 SINGLE 12-01-2007 [facility] W/O 61543 POOR 11-09-2007 [facility] GROWTH MGMT HEALTH MOTH CLINIC OF ANTPRTM [place] COND/COMP PLL 79513 SPOTTING 05-04-2007 [facility] COMP HEALTH CLINIC OF ANTEPARTUM [place] COND/COMP PLLC 04833 UNSPECIFIED 04-29-2007 [facility] INFECTION [facility] IN CCE & UNS SITE V222 04-29-2007 [facility] Medications Na ND Rx Da Fi Fi [...] ve LO 37 20 20 18 AI MA 40 17 17 68 D AM 1 [...] 5- 8 32 # 5 03 93 MA 00 08 08 21 6 RI 89 [...] UT 20 11 11 D 1 PH ND AR CH MA AE CY L 03 93 8 # 03 93 MARCANO 53 05 05 10 5 RI 88 CH Ac LF 74 -2 -2 .0 TE 41 ES ti AM 60 1- 1- 00 67 TN ve ET 27 20 20 AI UT HO 20 11 11 D XA 5 PH ND ZO AR CH LE MA AE -T CY L MP 03 DS 93 8 TA # BL 03 ET 93 AM 00 04 04 20 10 RI 87 GA Ac OX 09 -0 -0 .0 TE 77 IN ti -C 32 3- 4- 00 69 EY ve LA 27 20 20 AI V 53 11 11 D ND 87 4 PH CH 5- AR AE [...] 80 20 20 DE 43 10 10 ND 0 PH CH AR AE MA L CY S OF CY NT HI AN A DO 53 06 06 0 14 7 EA 18 GA Ac XY 48 -2 -[address] 12 IN ti CY 90 6- 6- 00 SI 89 EY ve CL 11 20 20 DE IN 90 10 10 ND E 5 PH CH HY AR AE CL MA L AT CY S E 10 OF 0 MG CY NT CA HI P AN A 00 05 06 3 15 3 NJ 70 LO Ac 18 -2 -0 .0 L- 71 RE ti 50 0- 3- 00 MA 43 NZ ve 61 20 20 RT 6 O 30 10 10 JASON 1 PH SE AR T MA CY # 10 05 91 00 05 06 3 15 3 NJ 70 JASON Ac 18 -2 -0 .0 L- 71 SE ti 50 0- 3- 00 MA 43 ve 61 20 20 RT 6 T. 30 10 10 1 PH LO AR RE MA NZ CY O # MD 10 JASON 05 SE 91 00 05 05 3 15 3 NJ 70 JASON Ac 18 -2 -2 .0 L- 71 SE ti 50 0- 0- 00 MA 43 ve 61 20 20 RT 6 T. 30 10 10 1 PH LO AR RE MA NZ CY O # MD 10 JASON 05 SE 91 CE 68 05 05 0 28 7 NJ 70 LO Ac PH 18 -2 -2 .0 L- 71 RE ti AL 00 0- 0- 00 MA 43 NZ ve EX 12 20 20 RT 5 O IN 20 10 10 JASON 1 PH SE 50 AR T 0 MA MG CY # CA PS 10 UL 05 E 91 00 05 05 3 15 3 NJ 70 LO Ac 18 -2 -2 .0 L- 71 RE ti 50 0- 0- 00 MA 43 NZ ve 61 20 20 RT 6 O 30 10 10 JASON 1 PH SE AR T MA CY # 10 05 91 NA 00 12 12 00 60 30 RI 81 CL Ac MA 09 -2 -3 .0 TE 45 AR [...] 72 20 20 DE 54 09 09 ND 0 PH CH AR AE MA L CY S OF CY NT HI AN A 65 12 12 00 9. 3 EA 15 GA Ac 16 -0 -[address] 36 IN ti 20 1- 7- 0 SI 63 EY ve 52 20 20 DE 01 09 09 ND 0 PH CH AR AE MA L [...] 00 20 10 RI 76 WI Ac MA 17 -0 -1 .0 TE 54 CK [...] 00 60 30 RI 76 CL Ac MA 09 -1 -0 .0 TE 31 AR ti OX 30 8- 1- 00 05 KE ve EN 14 20 20 AI 90 08 09 D DE 50 1 PH RE 0 AR K MG M J #3 TA 93 BL 8 ET ND 50 09 10 00 1. 1 TH [...] Procedure DOS Code Location Performer Comment URINE 55182 [facility] 7 PHYSICIAN PHYSICIAN TEST S GROUP S GROUP VISUAL COLOR CMPRSN METHS URINE 32444 [facility] TEST INC INC VISUAL COLOR CMPRSN METHS URNLS DIP 55942 [facility] STICK/TAB INC INC LET REAGENT AUTO MICROSCOP Y IIV4 VACC 56072 [facility] SPLIT 6 CO HEALTH CO HEALTH VIRUS 0.5 ML DOS DEPARTMEN DEPARTMEN FOR IM T T USE RADEX 24053 [facility] [place] KLEIN JAM ANKLE 5 RADIOLOGY COMPLETE MINIMUM 3 VIEWS 70668 [facility] DUBOSE DELIVERY 5 PHYSICIAN MARGARITA ONLY S GROUP W/POSTPAR [facility] ANESTHESI 85692 [facility] A 5 ANESTH [place] OF THE DELIVERY BLUE ONLY LIG/TRNSX 89993 [facility] PHYSICIAN MARGARITA FALOPIAN S GROUP TUBE DEL/ABDML SURG 11212 [facility] SCHULSTAD DELIVERY 5 PHYSICIAN CAM ONLY S GROUP LOW 741 [facility] CERVICAL 5 [facility] INC INC SECTION OTH 6639 [facility] BILATERAL 5 [facility] INC INC DESTRUC/O CCLUSION FALLOPIAN TUBES 95316 [facility] NONSTRESS 5 PHYSICIAN MARGARITA TEST S GROUP IAADIADOO 71741 COMBINED COMBINED 5 PHYSICIAN PHYSICIAN STREPTOCO S LA S LA CCUS GROUP B GLUCOSE 44739 [facility] TOLERANCE 4 [facility] TEST GTT INC INC 3 SPECIMENS URNLS DIP 78035 [facility] STICK/TAB INC INC LET RGNT NON-AUTO W/O MICRSCP GLUCOSE 97046 [facility] TOLERANCE 4 [facility] EA ADDL INC INC BEYOND 3 SPECIMENS GLUCOSE 74962 [facility] POST 4 PHYSICIAN PHYSICIAN GLUCOSE S GROUP S GROUP DOSE 24838 SEKOU ARGUELLO NONSTRESS 4 JOS BRITO DENISE TEST AMB A0427 [facility] SERVICE 4 [facility] EMERGENCY EMS EMS TRANSPORT LEVEL 1 GROUND A0425 [facility] MILEAGE 4 [facility] PER [facility] STATUTE EMS EMS MILE CULTURE 50933 COMBINED COMBINED BACTERIAL 4 PHYSICIAN PHYSICIAN S LA S LA QUANTTATI VE COLONY COUNT URINE IM ADM 82891 PRIMARY LARISSA PRQ ID 4 HEALTH RIMMA SUBQ/IM ASSOCIATE NJXS 1 S PS VACCINE IIV3 47678 PRIMARY LARISSA VACCINE 4 HEALTH RIMMA SPLIT ASSOCIATE VIRUS 0.5 S PS ML DOSAGE [place] PREG 99871 [facility] DUBOSE UTERUS 4 MARGARITA MARGARITA AFTER 1ST TRIMEST GESTATION OPHTH 23359 [facility] 4 XM&EVAL COMPRE NEW PT 1/> VST IADNA 46289 [facility] PAPILLOMA 4 LLC MAYNOR VIRUS HUMAN AMPLIFIED PROBE TQ CYTP 29004 [facility] CERVICAL/ 4 LLC [facility] VAGINAL REQ INTERP PHYSICIAN CYTP C/V 28311 [facility], [facility] AUTO THIN 4 LLC MAYNOR LYR PREPJ SCR MNL RESCR PHYS IADNA 22808 [facility] NEISSERIA 4 LLC MAYNOR GONORRHOE AE AMPLIFIED PROBE TQ IADNA 06173 [facility] CHLAMYDIA 4 LLC MAYNOR TRACHOMAT IS AMPLIFIED PROBE TQ URINE 97635 [facility] DUBOSE 4 MARGARITA MARGARITA TEST VISUAL COLOR CMPRSN METHS URINE 31760 [facility] TEST VISUAL DEPARTMEN DEPARTMEN COLOR T T CMPRSN METHS IADNA 45745 [place] CHLAMYDIA 4 [facility] HEALTH TRACHOMAT DEPARTMEN [facility] IS T T AMPLIFIED PROBE TQ IADNA 67184 [place] NEISSERIA 4 [facility] HEALTH GONORRHOE DEPARTMEN DEPARTMEN AE T T AMPLIFIED PROBE TQ IADNA 81535 LARISSA DIAS NEISSERIA 4 [facility] AE T T AMPLIFIED PROBE TQ COLLECTIO 03085 LARISSA DIAS N VENOUS 4 [facility] VENIPUNCT URE IADNA 52127 LARISSA DIAS CHLAMYDIA 4 [facility] IS T T AMPLIFIED PROBE TQ CYTP 17217 P[facility] PICKLESIM CERV/VAG 4 ER JR NBA ER JR NBA AUTO THIN LAYER PREP MNL SCREEN BLOOD 59639 LARISSA DIAS COUNT 4 [facility] AUTO&AUTO DIFRNTL WBC BASIC 23102 LARISSA DIAS METABOLIC [address] [place] [address] CALCIUM TOTAL LIPID 65132 [facility] PANEL [address] [place] [address] HEPATIC 13710 [facility] FUNCTION [address] [place] [address] [place] [address] LARISSA DIAS THYROID [address] [place] [address] NG HORMONE TSH CONTRACEP A4267 LARISSA DIAS TIVE 4 [facility] CONDOM [facility]PART[facility] MALE EACH T T INJECTION J1885 [address] KETOROLAC STEVEN STEVEN TROMETHAM INE PER 15 MG RADEX 04560 RIGO RIGO SPINE 4 TUS TUS LUMBOSACR AL 2/3 VIEWS THERAPEUT [address] PROPHYLAC STEVEN STEVEN TIC/DX INJECTION SUBQ/IM URINE 20253 [facility] DUBOSE 3 MARGARITA MARGARITA TEST VISUAL COLOR CMPRSN METHS ANESTHESI 58117 ALFONSO RAE ALFONSO RAE A 3 DELIVERY ONLY 61258 HARPE[facility] HARPEL DELIVERY 3 DENISE DENISE ONLY 50299 [facility] DUBOSE DELIVERY 3 MARGARITA MARGARITA ONLY W/POSTPAR SAMMY CARE LOW 741 [facility] CERVICAL 3 [facility] INC INC SECTION CUL BACT 02439 COMBINED COMBINED XCPT 3 PHYSICIAN PHYSICIAN URINE S LA S LA BLOOD/STO OL AEROBIC ISOL DRUG SCR G0434 [facility] DUBOSE NOT 3 MARGARITA MARGARITA CHROMATOG RAPHIC; ANY NUMBER PT ENC GLUCOSE 52131 [facility] DUBOSE TOLERANCE 3 MARGARITA MARGARITA TEST GTT 3 SPECIMENS 02032 HARPE[facility] HARPEL NONSTRESS 3 DENISE DENISE TEST URNLS DIP 55083 [facility] STICK/TAB INC INC LET REAGENT AUTO MICROSCOP Y US PREG 57951 [facility] SEDRICK UTERUS 3 HEALTH MARGARITA AFTER 1ST CLIN[facility] OF [place] [place] GESTATION OPHTH 44891 JENA DALE JENA DALE MEDICAL 3 XM&EVAL COMPRE NEW PT 1/> VST SPHERE V2100 JENA DALE JENA DALE SINGLE 3 VISION PLANO +/- 4.00 PER LENS FRAMES V2020 JENA DALE JENA DALE PURCHASES 3 LENS V2784 J[facility] JENA DALE POLYCARBO 3 NALINI OR EQUAL ANY INDEX PER LENS FITTING 31490 JENA DALE JENA DALE SPECTACLE 3 S XCPT APHAKIA MONOFOCAL CULTURE 34148 [facility] BACTERIAL 3 [facility] INC INC QUANTTATI VE COLONY COUNT URINE URNLS DIP 88347 [facility] 3 [facility] STICK/TAB INC INC LET REAGENT AUTO MICROSCOP Y URNLS DIP 11587 [facility] 3 [facility] STICK/TAB INC INC LET REAGENT AUTO MICROSCOP Y THERAPEUT 01554 [facility] IC 3 [facility] PROPHYLAC INC INC TIC/DX INJECTION SUBQ/IM INJECTION J2405 [facility] 3 [facility]OS[facility] ONDANSETR INC INC ON HCL PER 1 MG US PREG 61770 [facility]OMEN'S SEDRICK UTERUS 3 HEALTH MARGARITA REAL TIME CLINIC OF W/IMAGE MARE DCMTN TRANSVAG IADNA 48132 PATHOLOGY [place] CHLAMYDIA 3 & [facility] CYTOLOGY TRACHOMAT LAB IS AMPLIFIED PROBE TQ CYTP C/V 37712 PATHOLOGY [place] AUTO THIN 3 & PENNY LYR CYTOLOGY PREPJ SCR LAB MNL RESCR PHYS CYTP 93606 PATHOLOGY [place] CERVICAL/ 3 & PENNY VAGINAL CYTOLOGY REQ LAB INTERP PHYSICIAN IADNA 63452 PATHOLOGY [place] NEISSERIA 3 & PENNY CYTOLOGY GONORRHOE LAB AE AMPLIFIED PROBE TQ ECG 19644 PRISCILA SWARTZ SWARTZ PRISCILA ROUTINE 1 ECG CONSULTIN W/LEAST G SRV 12 LDS I&R ONLY THER 80042 CONSUELO CORDERO PROPH/DX 1 JOSE JOSE NJX IV PUSH SINGLE/1S T SBST/DRUG DEEP D9220 CONSUELO CORDERO SEDATION/ 1 JOSE JOSE GENERAL ANESTHESI A-1ST 30 MINUTES ORTHOPANT 64117 CONSUELO CORDERO OGRAM 1 JSOE GARCIA URNLS DIP 98481 [facility] STICK/TAB INC INC LET REAGENT AUTO MICROSCOP Y CULTURE 49109 [facility] F[facility] BACTERIAL 1 [facility] INC INC QUANTTATI VE COLONY COUNT URINE URINE 05260 [facility] TEST INC INC VISUAL COLOR CMPRSN METHS SIMPLE 10897 [facility] NATASHA REPAIR 1 EMERGENCY BENIGNO F/E/E/N/L SERVICES /M 2.5CM/< GROUND A0425 [facility] MILEAGE 1 AMBULANCE AMBULANCE PER SERVICE SERVICE STATUTE MILE SUTURE OF 2751 [facility] F[facility] 1 [facility] LACERATIO INC INC N OF LIP AMBULANCE A0429 [facility] SERVICE 1 AMBULANCE AMBULANCE BLS SERVICE SERVICE EMERGENCY TRANSPORT BLS A0382 [facility] ROUTINE 1 AMBULANCE AMBULANCE DISPOSABL SERVICE SERVICE E SUPPLIES IADNA 86337 [facility] NEISSERIA 1 [facility] GONORRHOE AE AMPLIFIED PROBE TQ IADNA 87955 [facility] CHLAMYDIA 1 [facility] [place] [address] SUME[facility] STREPTOCO 0 [facility] CCUS INC INC GROUP A IAADI 00656 [facility] F[facility] INFLUENZA 0 [facility] B VIRUS INC INC IAADI 40479 [facility] F[facility] INFFLUENZ 0 [facility] A A VIRUS INC INC IM ADM 50141 [facility] PRQ ID 0 [facility] HEALTH SUBQ/IM CENTER CENTER NJXS 1 VACCINE SUSCEPTIB 72662 [facility] LTY STDY 0 [facility] ANTIMICRB INC INC IAL MICRO/AGA R DILUTJ URNLS DIP 87460 [facility] 0 [facility] STICK/TAB INC INC LET REAGENT AUTO MICROSCOP Y CULTURE 48279 [facility] BCT 0 [facility] ISOL&PRSM INC INC PTV ID ISOLATE EA URINE CULTURE 61790 [facility] BACTERIAL 0 [facility] INC INC QUANTTATI VE COLONY COUNT URINE URINE 09920 [facility] 0 [facility] TEST INC INC VISUAL COLOR CMPRSN METHS URINE 78651 [facility] 0 [facility] TEST INC INC VISUAL COLOR CMPRSN METHS SMR PRIM 62194 [facility] SRC WET 0 [facility] MOUNT INC INC NFCT AGT IADNA 03837 SUMEET [facility]AY CHLAMYDIA 0 [facility] INC INC TRACHOMAT IS AMPLIFIED PROBE TQ URNLS DIP 31246 [facility] 0 [facility] STICK/TAB INC INC LET REAGENT AUTO MICROSCOP Y IADNA 05131 SUMEET FAY NEISSERIA 0 [facility] INC INC GONORRHOE AE AMPLIFIED PROBE TQ IM ADM 56784 SUMEET FAY PRQ ID 0 doo [facility] SUBQ/IM CENTER CENTER NJXS 1 VACCINE IM ADM 15989 SUMEET FAY PRQ ID 0 [facility] SUBQ/IM CENTER CENTER NJXS 1 VACCINE ANTIBODY 13684 COMBINED COMBINED CHLAMYDIA 9 PHYSICIAN PHYSICIAN S LAB S LAB CUL BACT 76164 COMBINED COMBINED XCPT 9 PHYSICIAN PHYSICIAN URINE S LAB S LAB BLOOD/STO OL AEROBIC ISOL CULTURE 74513 SUMEET FYA BACTERIAL 9 [facility] INC INC QUANTTATI VE COLONY COUNT URINE URINE 18049 SUMEET FAY 9 [facility] TEST INC INC VISUAL COLOR CMPRSN METHS URNLS DIP 93386 SUMEET FAY 9 [facility] STICK/TAB INC INC LET REAGENT AUTO MICROSCOP Y URNLS DIP 02078 SUMEET FAY 9 [facility] STICK/TAB INC INC LET REAGENT AUTO MICROSCOP Y BILIRUBIN 29656 SUMEET FAY DIRECT 9 [place] [address] SUMEET FAY LIPASE 9 [facility] INC INC URINE 85770 SUMEET FAY 9 [facility] TEST INC INC VISUAL COLOR CMPRSN METHS BLOOD 32432 SUMEET FAY COUNT 9 [facility] COMPLETE INC INC AUTO&[place] [address] SUMEET FAY AMYLASE 9 [facility] INC INC RADEX ABD 71027 GAYATHRI SOMMERS 9 [facility]ICAL [facility] AQT ABD IMAGING W/S/E/D ASSOCIATE VIEWS 1 S VIEW CH COMPREHEN 03003 SUMETE FAY SIVE 9 [facility] METABOLIC INC INC PANEL INSERTION 84046 [facility] DUBOSE, 8 [facility] DEV[facility] [place] I[address] [facility] URINE 27077 WOMEN'S DUBOSE, 8 [facility] VISUAL COLOR [place] CMPRSN [facility] METHS IIV3 01865 [facility] SUMEET VACCINE 8 [facility] VIRUS 0.5 BANK ACCT ML DOSAGE IM USE IADNA 76225 [facility], [place] 8 [place] JEN D GONORRHOE AE AMPLIFIED PROBE TQ CYTP 51019 [facility], CERV/VAG 8 [place] JEN D AUTO THIN LAYER PREP MNL SCREEN IADNA 71211 [facility], CHLAMY[place]IA 8 [place] JEN [place] [address] [facility] DELIVERY 8 , CRISTY , CRISTY ONLY ANESTHESI 32451 [facility] ANESTH SHIELA L [place] [id number] [facility] OF [facility] OF NON-IMMUN 8 [place] [facility] [place] [facility] OLOGIC OTH/THN CYTOPATHI C 24248 WOMEN'S DUBOSE, DELIVERY 8 [facility] J ONLY CLINIC OF W/POSTPAR SAMMY C[facility] 64532 WOMEN'S DUBOSE, NONSTRESS 8 [facility] HX&XM NML 00094 [facility]ILY [place], BALJIT INFT 8 CARE R NOEMI [facility] ASSOCIATE N DX&[place] S [address]20 WOMEN'S DUBOSE, NONSTRESS 8 [facility] [address]96[address] SUMEET FAY NONSTRESS 8 [facility] TEST INC INC 42673 SUMEET FAY NONSTRESS 8 [facility] TEST INC INC 78565 WOMEN'S DUBOSE, NONSTRESS 8 [facility] [address]3610 WOMEN'S DUBOSE, NONSTRESS 8 [facility] US PREG 50089 WOMEN'S SEDRICK, UTERUS 8 [facility]ALTH [facility] J REAL TIME CLINIC OF F/U TRNSABDL [place] PER FETUS [facility] CUL BACT 37638 COMBINED COMBINED XCPT 8 PHYSICIAN PHYSICIAN URINE S LAB S LAB BLOOD/STO OL AEROBIC ISOL DOPPLER 96240 WOMEN'S DUBOSE, VELOCIMET 8 [facility] RY [facility] OF UMBILICAL [facility] 65473 WOMEN'S SEDRICK, BIOPHYSIC 8 [facility] AL CLINIC OF PROFILE W/O [place] NON-STRES [facility] S TESTING 43026 SUMEET [facility]AY NONSTRESS 8 [facility] TEST INC INC URNLS DIP 96830 SUMEET FAY 8 [facility] STICK/TAB INC INC LET REAGENT AUTO MICROSCOP Y GLUCOSE 11312 WOMEN'S DU[facility]SE, TOLERANCE 8 [facility] J TEST GTT CLINIC OF [address] [place] [facility] GLUCOSE 33131 WOMEN'S DUBOSE, POST 8 [facility] DOSE [place] [facility] URNLS DIP 96969 SUMEET FAY 8 [facility] STICK/TAB INC INC LET REAGENT AUTO MICROSCOP Y 30874 SUMEET FAY NONSTRESS 8 [facility] [place] PREG 99753 WOMEN'S DUBOSE, UTERUS 8 [facility] BEATRIZ AFTER 1ST CLINIC OF TRIMEST [place] GESTATION [facility] ALPHA-FET 20012 SUMEET FAY OPROTEIN 8 [facility] [place] 60368 WOMEN'S [facility], UTERUS 8 [facility] REAL TIME CLINIC OF W/IMAGE DCMTN [place] TRANSVAG [facility] IAADIADOO 62540 [facility] 8 [facility] [place] [address] WOMEN'S CROSS, 8 [facility] UTERUS 14 CLINIC OF WK TRANSABDL [place] [facility] GESTAT MOLECULAR 58887 [facility], DX AMP 8 [place] ANNA E TARGET MULTIPLEX 1ST 2 SEQ IADNA 69538 [facility], NEISSERIA 8 [place] INC ANNA E GONORRHOE AE AMPLIFIED PROBE TQ MOLEC 12887 [facility], ENZYMATIC 8 [place] E DIGESTION EA ENZYME TX MOLECULAR 63277 [facility], 8 [place] Jaelyn DIAGNOSTI CS INTERPRET ATION & REPORT MUTATION 82993 [facility], ID 8 [place] E ENZYMATIC LIG/PRIME R XTN 1 SGM EA IADNA 58461 [facility], CHLAMYDIA 8 [place] AN[place] E TRACHOMAT IS AMPLIFIED PROBE TQ CYTP 69532 [facility], CERV/VAG 8 [place] E AUTO THIN LAYER PREP MNL SCREEN MOLECULAR 27150 [facility], DX AMP 8 [place] AN[place] E TARGET MULTIPLEX EA ADDL SEQ MOLEC 06158 [facility], SEP&ID HI 8 [place] ANNA E ABHISHEKU TQ EACH NUCLEIC ACID PREP Encounters Encounter Start End Date Code Location Performer Type Date OFFICE 38482 [facility] DUBOSE OUTPATIEN 7 7 PHYSICIAN T VISIT S GROUP 15 MINUTES EMERGENCY 89679 SHASTA STEWART 6 [address] [facility] T VISIT MODERATE SEVERITY HOSPITAL SUMEET - 6 6 [facility] OUTPATIEN INC T EMERGENCY 33908 SUMEET 6 6 [facility] LOW/MODER SEVERITY EMERGENCY 69594 SHASTA STEWART 6 [address] [facility] T VISIT MODERATE SEVERITY EMERGENCY 23574 ANI AVENDANO 5 5 THOMPSON STEPH [facility] EMERGENCY T VISIT PHYS HIGH/URGE NT SEVERITY HOSPITAL SUMEET - 5 5 [facility] INPATIENT INC OFFICE 55553 [facility] DUBOSE OUTPATIEN 5 5 PHYSICIAN MARGARITA T VISIT S GROUP 15 MINUTES OFFICE 06112 [facility] DUBOSE OUTPATIEN 5 5 PHYSICIAN MARGARITA T VISIT S GROUP 15 MINUTES OFFICE 30129 [facility] DUBOSE OUTPATIEN 4 4 PHYSICIAN MARGARITA T VISIT S GROUP 15 MINUTES HOSPITAL SUMEET - 4 4 [facility] OUTPATIEN INC T OFFICE 35271 [facility] OUTPATIEN 4 4 PHYSICIAN T VISIT 5 S GROUP MINUTES OFFICE 86811 [facility] DUBOSE OUTPATIEN 4 4 PHYSICIAN MARGARITA T VISIT S GROUP 15 MINUTES OFFICE 43088 [facility] DUBOSE OUTPATIEN 4 4 MARGARITA MARGARITA T VISIT 15 MINUTES OFFICE 32950 PRIMARY LARISSA OUTPATIEN 4 4 HEALTH RIMMA T VISIT ASSOCIATE 15 S PS MINUTES EMERGENCY 27552 ANI DONALDSON 4 4 [facility] DEPARTMEN EMERGENCY T VISIT PHYS HIGH/URGE NT SEVERITY OFFICE 95108 SEDRICK DUBOSE OUTPATIEN 4 4 MARGARITA MARGARITA T VISIT 25 MINUTES OFFICE 43175 LARISSA DIAS OUTPATIEN 4 4 [facility] T VISIT 15 DEPARTMEN DEPARTMEN MINUTES T T OFFICE 91686 LARISSA DIAS OUTPATIEN 4 4 RIMMA RIMMA T VISIT 15 MINUTES INITIAL 97381 LARISSA PAEZON PREVENTIV 4 4 [facility] DE[facility] NEW PT T T AGE 18-39YRS HOSPITAL JEANNINEON - 4 4 [facility] T EMERGENCY 91874 SOSA SWAN 4 4 [facility] T VISIT MODERATE SEVERITY HOSPITAL ST. - 4 4 [facility] SUMEET - 3 3 [facility] INPATIENT [facility] OFFICE 58248 HARPEL HARPEL OUTPATIEN 3 3 DENISE DENISE T VISIT 15 MINUTES OFFICE 06174 [facility]OMEN'S DUBOSE OUTPATIEN 3 3 HEALTH MARGARITA T VISIT CLINIC OF 15 MARE MINUTES OFFICE 97739 DUBOSE DUBOSE OUTPATIEN 3 3 MARGARITA MARGARITA T VISIT 15 MINUTES OFFICE 84093 DUBOSE DUBOSE OUTPATIEN 3 3 MARGARITA MARGARITA T VISIT 15 MINUTES OFFICE 69737 DUBOSE DUBOSE OUTPATIEN 3 3 MARGARITA MARGARITA T VISIT 15 MINUTES OFFICE 32050 DUBOSE DUBOSE OUTPATIEN 3 3 MARGARITA MARGARITA T VISIT 5 MINUTES OFFICE 88526 HARPEL HARPEL OUTPATIEN 3 3 DENISE DENISE T VISIT 15 MINUTES OFFICE 95927 DUBOSE DUBOSE OUTPATIEN 3 3 MARGARITA MARGARITA T VISIT 15 MINUTES EMERGENCY 65671 NEVILLE KAUR 3 3 EMERGENCY [facility] DEPARTMEN SERVICES T VISIT MODERATE SEVERITY HOSPITAL SUMEET - 3 3 [facility] OUTPATIEN INC T OFFICE 30451 WOMEN'S DUBOSE OUTPATIEN 3 3 HEALTH MARGARITA T VISIT CLINIC OF 15 MARE MINUTES HOSPITAL SUMEET - 3 3 [facility] OUTPATIEN INC T EMERGENCY 55032 SUMEET 3 3 [facility] DEPARTMEN INC T VISIT LIMITED/M INOR PROB EMERGENCY 17007 NEVILLE JONES 3 3 EMERGENCY DEPARTMEN SERVICES T VISIT MODERATE SEVERITY HOSPITAL SUMEET - 3 3 [facility] OUTPATIEN INC T HOSPITAL SUMEET - 3 3 [facility] OUTPATIEN INC T EMERGENCY 53932 NEVILLE MCKEON 3 3 EMERGENCY DEPARTMEN SERVICES T VISIT HIGH/URGE NT SEVERITY EMERGENCY 55829 SUMEET 3 3 [facility] DEPARTMEN INC T VISIT LOW/MODER SEVERITY OFFICE 14793 SUMEET FAY OUTPATIEN 1 1 [facility] 10 MINUTES OFFICE 54437 CONSUELO CORDERO OUTPATIEN 1 1 JOSE JOSE T CLAUDIA 10 MINUTES EMERGENCY 11722 NEVILLE LONG 1 1 EMERGENCY [facility] DEPARTMEN SERVICES T VISIT HIGH/URGE NT SEVERITY HOSPITAL SUMEET - 1 1 [facility] OUTPATIEN INC T EMERGENCY 31160 SUMEET 1 1 [facility] DEPARTMEN INC T VISIT LOW/MODER SEVERITY EMERGENCY 23217 SUMEET 1 1 [facility] DEPARTMEN INC T VISIT HIGH/URGE NT SEVERITY HOSPITAL SUMEET - 1 1 [facility] OUTPATIEN INC T OFFICE 77409 SUMEET [facility]AY OUTPATIEN 1 1 [facility] 15 MINUTES OFFICE 32589 SUMEET FAY OUTPATIEN 1 1 [facility] 15 MINUTES EMERGENCY 76940 SUMEET 0 0 [facility] DEPARTMEN INC T VISIT MODERATE SEVERITY HOSPITAL SUMEET - 0 0 [facility] OUTPATIEN INC T OFFICE 19531 SUMEET FAY OUTPATIEN 0 0 [facility] 10 MINUTES HOSPITAL SUMEET - 0 0 [facility] OUTPATIEN INC T EMERGENCY 76271 NEVILLE MCKEON 0 0 EMERGENCY DEPARTMEN SERVICES T VISIT HIGH/URGE NT SEVERITY EMERGENCY 52148 SUMEET 0 0 [facility] DEPARTMEN INC T VISIT LOW/MODER SEVERITY EMERGENCY 58845 SUMEET 0 0 [facility] DEPARTMEN INC T VISIT HIGH/URGE NT SEVERITY HOSPITAL SUMEET - 0 0 [facility] OUTPATIEN INC T EMERGENCY 45505 NEVILLE KAUR, 0 0 EMERGENCY [facility] DEPARTMEN SERVICES T VISIT HIGH/URGE ASSOCIATE NT S SEVERITY OFFICE 61564 SUMEET [facility] OUTPATIEN 0 0 [facility] 10 MINUTES OFFICE 71461 [facility] BARRERA OUTPATIEN 0 0 [facility] T T VISIT 10 MINUTES OFFICE 37964 SUMEET [facility] OUTPATIEN 0 0 [facility] [address] CENTER MINUTES OFFICE 33559 [facility] DUBOSE 9 9 [facility] J T [facility]ISIT CLINIC OF 15 MINUTES [facility] 93811 SUMEET 9 9 [facility] DEPARTMEN INC T VISIT LOW/MODER SEVERITY HOSPITAL SUMEET - 9 9 [facility] OUTPATIEN INC T EMERGENCY 12131 NEVILLE KAUR, 9 9 [facility]ERGENCY [facility] T VISIT HIGH/URGE ASSOCIATE NT S SEVERITY OFFICE 74073 HOLLY BARRERA OUTPATIEN 9 9 JAIMIE JAIMIE T VISIT 10 MINUTES HOSPITAL SUMEET - 9 9 [facility] OUTPATIEN INC T EMERGENCY 99386 KAVYA MARIANO, DEPT 9 9 [facility] VISIT CORPORATI HIGH ON SEVERITY& THREAT FUN EMERGENCY 37734 SUMEET 9 9 [facility] MODERATE SEVERITY OFFICE 13217 WOMEN'S DUBOSE, OUTPATIEN 8 8 [facility] J T VISIT CLINIC OF 25 MINUTES [facility] OFFICE 90971 WOMEN'S DUBOSE, OUTPATIEN 8 8 [facility] J T VISIT CLINIC OF 15 MINUTES [facility] OFFICE 56304 WOMEN'S DUBOSE, OUTPATIEN 8 8 [facility] J T VISIT CLINIC OF 15 MINUTES [facility] OFFICE 20225 WOMEN'S DUBOSE, OUTPATIEN 8 8 [facility] J T VISIT CLINIC OF 15 MINUTES [facility] SUMEET - 8 8 [facility]PATIEN [facility] SUMEET - 8 8 [facility] OUTPATIEN INC T OFFICE 80310 WOMEN'S DUBOSE, OUTPATIEN 8 8 [facility] J T VISIT CLINIC OF 15 MINUTES [facility] OFFICE 65466 WOMEN'S DUBOSE, OUTPATIEN 8 8 [facility] J T VISIT CLINIC OF 15 MINUTES [facility] OFFICE 51064 WOMEN'S DUBOSE, OUTPATIEN 8 8 [facility] J T VISIT CLINIC OF 15 MINUTES [facility] SUMEET - 8 8 [facility] OUTPATIEN INC T OFFICE 56953 WOMEN'S DUBOSE, OUTPATIEN 8 8 [facility] J T VISIT CLINIC OF [address] OFFICE 44121 WOMEN'S DUBOSE, OUTPATIEN 8 8 [facility] J T VISIT CLINIC OF [address] [facility] OFFICE 17073 WOMEN'S DUBOSE, OUTPATIEN 8 8 HEALTH EBATRIZ J T VISIT 5 CLINIC OF [facility]UTES [facility] OFFICE 95468 WOMEN'S DUBOSE, OUTPATIEN 8 8 [facility] J T VISIT CLINIC OF 15 MINUTES [facility] OFF[facility] 48945 WOMEN'S DUBOSE, OUTPATIEN 8 8 [facility] J T VISIT CLIN[facility] OF [facility]ES [facility] SUMEET - 8 8 [facility] OUTPATIEN INC T OFFICE 08905 WOMEN'S DUBOSE, OUTPATIEN 8 8 [facility] J T VISIT CLIN[facility] OF 15 [facility]ES [facility] SUMEET - 8 8 [facility] OUTPATIEN INC T OFFICE 30073 WOMEN'S DUBOSE, OUTPATIEN 8 8 [facility] J T VISIT CLINIC OF [address] [facility] OFF[facility] 37173 WOMEN'S DUBOSE, OUTPATIEN 8 8 [facility] J T VISIT CLINIC OF 15 MINUTES [facility] OFFICE 40103 WOMEN'S DUBOSE, OUTPATIEN 8 8 [facility] J T VISIT CLINIC OF 15 MIN[facility]ES [facility] EM[facility]ENC[facility] 56221 [facility] 8 8 [facility] T VISIT LOW/MODER SEVERITY EMERGENCY 38142 [facility], 8 8 [facility] R [facility] EMERGENCY T VISIT PHYS INC MODERATE SEVERITY HOSPITAL [place] - 8 8 [facility] T
--- OUTSIDE RECORDS SUMMARY | 2017-01-17 18:46 | External Medical Summary Rpt | CCD ---
Author Author , REJI Organization REJI Address Unknown Phone [email or web address] Immunization Name Date Rout CVX Reac Dose Comm Prov Is Faci e tion ent ider Refu lity Give sed n HPV4 09-1 62 999 Hist H149 No H149 5-20 oric (Gar 10 al dasi Info l) rmat ion - Sour ce Unsp ecif ied HPV4 06-0 62 999 Hist H149 No H149 3-20 oric (Gar 10 al dasi Info l) rmat ion - Sour ce Unsp ecif ied HPV4 03-0 62 999 Hist H149 No H149 1-20 oric (Gar 10 al dasi Info l) rmat ion - Sour ce Unsp ecif ied Td 05-2 9 999 Hist H149 No H149 (wagner 4-20 oric lt), 04 al Info adso rmat rbed ion - Sour ce Unsp ecif ied MMR 12-1 3 999 Hist H109 No H109 6-19 oric 96 al Info rmat ion - Sour ce Unsp ecif ied Darin 12-1 2 999 Hist H109 No H109 o-OP 6-19 oric V 96 al Info rmat ion - Sour ce Unsp ecif ied DTaP 12-1 107 999 Hist H109 No H109 , UF 6-19 oric 96 al Info rmat ion - Sour ce Unsp ecif ied
--- OUTSIDE RECORDS SUMMARY | 2017-01-17 18:46 | External Medical Summary Rpt | CCD ---
Author Author , REJI Organization REJI Address Unknown Phone [email or web address] Immunization Name Date Rout CVX Reac Dose [...]
--- OUTSIDE RECORDS SUMMARY | 2017-01-17 18:47 | External Medical Summary Rpt ---
Author Author AYEALICIA Giraldo, [employer] Organization [employer] Address Unknown Phone Unavailable Results XR LUMBAR SPINE AP AND LATERAL Observa Value Referen Units Interpr Notes Date tion ce etation Range XR No No No No Mar 30 LUMBAR informa informa informa informa 2014 SPINE tion in tion in tion in tion in 5:09 PM AP AND source source source source LATERAL data data data data 4\.br\\ .br\HIS TORY: Injury and back pain\.b r\\.br\ No signifi cant osseous , soft tissue, or joint space abnorma lity is seen.\. br\\.br \IMPRES MADELYN: Negativ e exam. CHLAMYDIA AND GONORRHEA TESTING Observa Value Referen Units Interpr Notes Date tion ce etation Range COLLECT A. No No No No Apr 8 OR SHONNA informa informa informa informa 2013 RN tion in tion in tion in tion in 10:00 source source source source AM data data data data ETHNICI WHITE, No No No No May 05 TY NON-HIS informa informa informa informa 2013 PANIC tion in tion in tion in tion in 10:00 source source source source AM data data data data KIT 08-31-2 No No No No May 05 EXPIRAT 013 informa informa informa informa 2013 ION tion in tion in tion in tion in 10:00 DATE source source source source AM data data data data SYMPTOM NO No No No No May 05 S informa informa informa informa 2013 tion in tion in tion in tion in 10:00 source source source source AM data data data data REASON VOLUNTE No No No No May 05 FOR ER/MEDI informa informa informa informa 2013 REQUEST DAVID tion in tion in tion in tion in 10:00 PROBLEM source source source source AM data data data data SPECIME URINE No No No No Apr 8 N informa informa informa informa 2013 SOURCE tion in tion in tion in tion in 10:00 source source source source AM data data data data PREGNAN YES No No No No Apr 8 T informa informa informa informa 2013 tion in tion in tion in tion in 10:00 source source source source AM data data data data CHART 402-45- No No No No Apr 8 NUMBER [id number] informa informa informa informa 2013 tion in tion in tion in tion in 10:00 source source source source AM data data data data Chlamyd NEGATIV No No No NEGATIV Apr 8 ia E informa informa informa E 2013 trachom tion in tion in tion in RESULT= 10:00 atis source source source WITHIN AM rRNA data data data NORMAL [Presen ce] in LIMITSP Unspeci OSITIVE fied specime RESULT= n by Probe & ABNORMA target LEQUIVO DAVID amplifi RESULT= cation method INDETER MINATEU NSATISF ACTORY RESULT= INVALID Neisser NEGATIV No No No NEGATIV Apr 8 ia E informa informa informa E 2013 gonorrh tion in tion in tion in RESULT= 10:00 oeae source source source WITHIN AM rRNA data data data NORMAL [Presen ce] in LIMITSP Unspeci OSITIVE fied specime RESULT= n by Probe & ABNORMA target LEQUIVO DAVID amplifi RESULT= cation method INDETER MINATEU NSATISF ACTORY RESULT= INVALID THE APTIMA COMBO 2 ASSAY IS NOT INTENDE D FOR THE EVALUAT ION OF SUSPECT EDSEXUA L ABUSE OR FOR OTHER MEDICO- LEGAL INDICAT IONS. FOR THOSE PATIENT S FORWHOM A FALSE POSITIV E RESULT MAY HAVE ADVERSE PSYCHO- SOCIAL IMPACT, THE [facility] MMENDS RETESTI NG.\.br \This report contain s patient informa tion that must be protect ed in accorda nce with the Health Insuran ce Portabi lity and Account ability Act. CHLAMYDIA AND GONORRHEA TESTING Observa Value Referen Units Interpr Notes Date tion ce etation Range COLLECT A. No No No No Apr 8 OR SHONNA informa informa informa informa 2013 RN tion in tion in tion in tion in 10:00 source source source source AM data data data data ETHNICI WHITE, No No No No Apr 8 TY NON-HIS informa informa informa informa 2013 PANIC tion in tion in tion in tion in 10:00 source source source source AM data data data data KIT 08-31-2 No No No No Apr 8 EXPIRAT 013 informa informa informa informa 2013 ION tion in tion in tion in tion in 10:00 DATE source source source source AM data data data data SYMPTOM NO No No No No Apr 8 S informa informa informa informa 2013 tion in tion in tion in tion in 10:00 source source source source AM data data data data REASON VOLUNTE No No No No May 05 FOR ER/MEDI informa informa informa informa 2013 REQUEST DAVID tion in tion in tion in tion in 10:00 PROBLEM source source source source AM data data data data SPECIME URINE No No No No Apr 8 N informa informa informa informa 2013 SOURCE tion in tion in tion in tion in 10:00 source source source source AM data data data data PREGNAN YES No No No No Apr 8 T informa informa informa informa 2013 tion in tion in tion in tion in 10:00 source source source source AM data data data data CHART 402-45- No No No No May 05 NUMBER [id number] informa informa informa informa 2013 tion in tion in tion in tion in 10:00 source source source source AM data data data data Chlamyd Pending No No No No May 05 ia informa informa informa informa 2013 trachom tion in tion in tion in tion in 10:00 atis source source source source AM rRNA data data data data [Presen ce] in Unspeci fied specime n by Probe & target amplifi cation method Neisser Pending No No No \.br\May 05 ia informa informa informa is 2013 gonorrh tion in tion in tion in report 10:00 oeae source source source contain AM rRNA data data data s [Presen patient ce] in Unspeci informa fied tion specime that n by must be Probe & target protect ed in amplifi accorda cation nce method with the Health Insuran ce Portabi lity and Account ability Act. CHLAMYDIA AND GONORRHEA TESTING Observa Value Referen Units Interpr Notes Date tion ce etation Range COLLECT NA No No No No Sep 25 OR informa informa informa informa 2012 tion in tion in tion in tion in 9:30 AM source source source source data data data data ETHNICI WHITE, No No No No Sep 25 TY NON-HIS informa informa informa informa 2012 PANIC tion in tion in tion in tion in 9:30 AM source source source source data data data data KIT 04-27-12 No No No No Sep 25 EXPIRAT informa informa informa informa 2012 ION tion in tion in tion in tion in 9:30 AM DATE source source source source data data data data SYMPTOM YES No No No No Sep 25 S informa informa informa informa 2012 tion in tion in tion in tion in 9:30 AM source source source source data data data data REASON INITIAL No No No No Sep 25 FOR FAMILY informa informa informa informa 2012 REQUEST tion in tion in tion in tion in 9:30 AM PLANNIN source source source source G VISIT data data data data SPECIME FEMALE No No No No Sep 25 N ENDOCER informa informa informa informa 2012 SOURCE VICAL tion in tion in tion in tion in 9:30 AM source source source source data data data data PREGNAN NO No No No No Sep 25 T informa informa informa informa 2012 tion in tion in tion in tion in 9:30 AM source source source source data data data data CHART NA No No No No Sep 25 NUMBER informa informa informa informa 2012 tion in tion in tion in tion in 9:30 AM source source source source data data data data Chlamyd NEGATIV No No No NEGATIV Sep 25 ia E informa informa informa E 2012 trachom tion in tion in tion in RESULT= 9:30 AM atis source source source WITHIN rRNA data data data NORMAL [Presen ce] in LIMITSP Unspeci OSITIVE fied specime RESULT= n by Probe & ABNORMA target LEQUIVO DAVID amplifi RESULT= cation method INDETER MINATEU NSATISF ACTORY RESULT= INVALID Neisser POSITIV No No No NEGATIV Sep 25 ia E informa informa informa E 2012 gonorrh tion in tion in tion in RESULT= 9:30 AM oeae source source source WITHIN rRNA data data data NORMAL [Presen ce] in LIMITSP Unspeci OSITIVE fied specime RESULT= n by Probe & ABNORMA target LEQUIVO DAVID amplifi RESULT= cation method INDETER MINATEU NSATISF ACTORY RESULT= INVALID THE APTIMA COMBO 2 ASSAY IS NOT INTENDE D FOR THE EVALUAT ION OF SUSPECT EDSEXUA L ABUSE OR FOR OTHER MEDICO- LEGAL INDICAT IONS. FOR THOSE PATIENT S FORWHOM A FALSE POSITIV E RESULT MAY HAVE ADVERSE PSYCHO- SOCIAL IMPACT, [facility] MM[facility]DS RETESTI NG.\.br \This report contain s patient informa tion that must be protect ed in accorda nce with the Health Insuran ce Portabi lity and Account ability Act. CHLAMYDIA AND GONORRHEA TESTING Observa Value Referen Units Interpr Notes Date tion ce etation Range COLLECT NA No No No No Sep 25 OR informa informa informa informa 2012 tion in tion in tion in tion in 9:30 AM source source source source data data data data ETHNICI WHITE, No No No No Sep 25 TY NON-HIS informa informa informa informa 2012 PANIC tion in tion in tion in tion in 9:30 AM source source source source data data data data KIT -31-13 No No No No Sep 25 EXPIRAT informa informa informa informa 2012 ION tion in tion in tion in tion in 9:30 AM DATE source source source source data data data data SYMPTOM YES No No No No Sep 25 S informa informa informa informa 2012 tion in tion in tion in tion in 9:30 AM source source source source data data data data REASON INITIAL No No No No Sep 25 FOR FAMILY informa informa informa informa 2012 REQUEST tion in tion in tion in tion in 9:30 AM PLANNIN source source source source G VISIT data data data data SPECIME FEMALE No No No No Sep 25 N ENDOCER informa informa informa informa 2012 SOURCE VICAL tion in tion in tion in tion in 9:30 AM source source source source data data data data PREGNAN NO No No No No Sep 25 T informa informa informa informa 2012 tion in tion in tion in tion in 9:30 AM source source source source data data data data CHART NA No No No No Dec 20 NUMBER informa informa informa informa 2012 tion in tion in tion in tion in 9:30 AM source source source source data data data data Chlamyd Pending No No No No Dec 20 ia informa informa informa informa 2012 trachom tion in tion in tion in tion in 9:30 AM atis source source source source rRNA data data data data [Presen ce] in Unspeci fied specime n by Probe & target amplifi cation method Neisser Pending No No No \.br\Th Dec 20 ia informa informa informa is 2012 gonorrh tion in tion in tion in report 9:30 AM oeae source source source contain rRNA data data data s [Presen patient ce] in Unspeci informa fied tion specime that n by must be Probe & target protect ed in amplifi accorda cation nce method with the Health Insuran ce Portabi lity and Account ability Act. Reagin Ab [Presence] in Unspecified specimen by VDRL Observa Value Referen Units Interpr Notes Date tion ce etation Range COLLECT D. No No No No Jan 21 OR BRADFOR informa informa informa informa 2011 D RN tion in tion in tion in tion in 3:58 PM source source source source data data data data ETHNICI WHITE No No No No Jan 21 TY informa informa informa informa 2010 tion in tion in tion in tion in 3:58 PM source source source source data data data data PURPOSE DIAGNOS No No No No Jan 21 OF TIC informa informa informa informa 2011 EXAM tion in tion in tion in tion in 3:58 PM source source source source data data data data SPECIME BLOOD No No No No Jan 21 N informa informa informa informa 2011 SOURCE tion in tion in tion in tion in 3:58 PM source source source source data data data data CHART NA No No No No Jan 21 NUMBER informa informa informa informa 2011 tion in tion in tion in tion in 3:58 PM source source source source data data data data Reagin NON-CATRACHITO No No No METHOD Jan 21 Ab CTIVE informa informa informa OF 2010 [Presen tion in tion in tion in ANALYSI 3:58 PM ce] in source source source S: Unspeci data data data VDRLNOR fied MAL specime RANGE: n by NON VDRL REACTIV E\.br\T his report contain s patient informa tion that must be protect ed in accorda nce with the Health Insuran ce Portabi lity and Account ability Act. CHLAMYDIA AND GONORRHEA TESTING Observa Value Referen Units Interpr Notes Date tion ce etation Range COLLECT D.BRADF No No No No Jan 21 OR ORD RN informa informa informa informa 2011 tion in tion in tion in tion in 3:58 PM source source source source data data data data ETHNICI WHITE, No No No No Jan 21 TY NON-HIS informa informa informa informa 2011 PANIC tion in tion in tion in tion in 3:58 PM source source source source data data data data KIT MARCH No No No No Jan 21 EXPIRAT 31, informa informa informa informa 2011 ION 2012 tion in tion in tion in tion in 3:58 PM DATE source source source source data data data data SYMPTOM NO No No No No Jan 21 S informa informa informa informa 2010 tion in tion in tion in tion in 3:58 PM source source source source data data data data REASON VOLUNTE No No No No Jan 21 FOR ER/MEDI informa informa informa informa 2011 REQUEST DAVID tion in tion in tion in tion in 3:58 PM PROBLEM source source source source data data data data SPECIME FEMALE No No No No Jan 21 N ENDOCER informa informa informa informa 2011 SOURCE VICAL tion in tion in tion in tion in 3:58 PM source source source source data data data data PREGNAN NO No No No No Jan 21 T informa informa informa informa 2010 tion in tion in tion in tion in 3:58 PM source source source source data data data data CHART NA No No No No Jan 21 NUMBER informa informa informa informa 2011 tion in tion in tion in tion in 3:58 PM source source source source data data data data Chlamyd NEGATIV No No No NEGATIV Jan 21 ia E informa informa informa E 2011 trachom tion in tion in tion in RESULT= 3:58 PM atis source source source WITHIN rRNA data data data NORMAL [Presen ce] in LIMITSP Unspeci OSITIVE fied specime RESULT= n by Probe & ABNORMA target LEQUIVO DAVID amplifi RESULT= cation method INDETER MINATEU NSATISF ACTORY RESULT= INVALID Neisser NEGATIV No No No NEGATIV Jan 21 ia E informa informa informa E 2011 gonorrh tion in tion in tion in RESULT= 3:58 PM oeae source source source WITHIN rRNA data data data NORMAL [Presen ce] in LIMITSP Unspeci OSITIVE fied specime RESULT= n by Probe & ABNORMA target LEQUIVO DAVID amplifi RESULT= cation method INDETER MINATEU NSATISF ACTORY RESULT= INVALID EFFECTI VE NOVEMBE R 2009: THE APTIMA COMBO 2 NUCLEIC ACIDAMP LIFICAT ION ASSAY IS NOT INTENDE D FOR THE EVALUAT ION OFSUSPE CTED SEXUAL ABUSE OR FOR OTHER MEDICO- LEGAL INDICAT IONS.FA LSE POSITIV E RESULTS ARE POSSIBL E.\.br\ This report contain s patient informa tion that must be protect ed in accorda nce with the Health Insuran ce Portabi lity and Account ability Act. Reagin Ab [Presence] in Unspecified specimen by VDRL Observa Value Referen Units Interpr Notes Date tion ce etation Range COLLECT D. No No No No Jan 21 OR BRADFOR informa informa informa informa 2010 D RN tion in tion in tion in tion in 3:58 PM source source source source data data data data ETHNICI WHITE No No No No Jan 21 TY informa informa informa informa 2010 tion in tion in tion in tion in 3:58 PM source source source source data data data data PURPOSE DIAGNOS No No No No Jan 21 OF TIC informa informa informa informa 2011 EXAM tion in tion in tion in tion in 3:58 PM source source source source data data data data SPECIME BLOOD No No No No Jan 21 N informa informa informa informa 2011 SOURCE tion in tion in tion in tion in 3:58 PM source source source source data data data data CHART NA No No No No Jan 21 NUMBER informa informa informa informa 2011 tion in tion in tion in tion in 3:58 PM source source source source data data data data Reagin Pending No No No \.br\Th Jan 21 Ab informa informa informa is 2010 [Presen tion in tion in tion in report 3:58 PM ce] in source source source contain Unspeci data data data s fied patient specime n by informa VDRL tion that must be protect ed in accorda nce with the Health Insuran ce Portabi lity and Account ability Act. CHLAMYDIA AND GONORRHEA TESTING Observa Value Referen Units Interpr Notes Date tion ce etation Range COLLECT DGabyBRADF No No No No Jan 21 OR ORD RN informa informa informa informa 2011 tion in tion in tion in tion in 3:58 PM source source source source data data data data ETHNICI WHITE, No No No No Jan 21 TY NON-HIS informa informa informa informa 2011 PANIC tion in tion in tion in tion in 3:58 PM source source source source data data data data KIT MARCH No No No No Jan 21 EXPIRAT 31, informa informa informa informa 2011 ION 2012 tion in tion in tion in tion in 3:58 PM DATE source source source source data data data data SYMPTOM NO No No No No Jan 21 S informa informa informa informa 2011 tion in tion in tion in tion in 3:58 PM source source source source data data data data REASON VOLUNTE No No No No Jan 21 FOR ER/MEDI informa informa informa informa 2011 REQUEST DAVID tion in tion in tion in tion in 3:58 PM PROBLEM source source source source data data data data SPECIME FEMALE No No No No Jan 21 N ENDOCER informa informa informa informa 2011 SOURCE VICAL tion in tion in tion in tion in 3:58 PM source source source source data data data data PREGNAN NO No No No No Jan 21 T informa informa informa informa 2011 tion in tion in tion in tion in 3:58 PM source source source source data data data data CHART NA No No No No Oct 27 NUMBER informa informa informa informa 2011 tion in tion in tion in tion in 3:58 PM source source source source data data data data Chlamyd Pending No No No No Jan 21 ia informa informa informa informa 2011 trachom tion in tion in tion in tion in 3:58 PM atis source source source source rRNA data data data data [Presen ce] in Unspeci fied specime n by Probe & target amplifi cation method Neisser Pending No No No \.br\Jan 21 ia informa informa informa is 2011 gonorrh tion in tion in tion in report 3:58 PM oeae source source source contain rRNA data data data s [Presen patient ce] in Unspeci informa fied tion specime that n by must be Probe & target protect ed in amplifi accorda cation nce method with the Health Insuran ce Portabi lity and Account ability Act.
--- OUTSIDE RECORDS SUMMARY | 2017-01-17 18:47 | External Medical Summary Rpt ---
[...] MAY HAVE ADVERSE PSYCHO- SOCIAL IMPACT, [facility] MMEN[facility] RETESTI NG.\.br \This report contain s [...]
[2017-01-17 18:55] VITALS: BP 124/74
== END 2017-01-17 18:56 | disposition short-term general hospital (02) ==
LOC: ER 18:11
DX: S55.102A Unspecified injury of radial artery at forearm level, left arm, initial encounter (principal); S51.832A Puncture wound without foreign body of left forearm, initial encounter; W26.0XXA Contact with knife, initial encounter; Y92.019 Unspecified place in single-family (private) house as the place of occurrence of the external cause
CPT/HCPCS: J2405

== ENCOUNTER → 2017-02-01 | Emergency (ER) | payer MEDICAID ==
--- OUTSIDE RECORDS SUMMARY | 2017-02-01 12:59 | External Medical Summary Rpt | CCD ---
Author Author , [employer] Address Unknown Phone [email or web address] Care Team Providers Care Haz Tech Name Role Phone Cipriano Carson MD, Unavailable Unavailable Cipriano Nails MD, Unavailable Unavailable Aldo Coleman MD, Unavailable Unavailable Floresita Guthrie MD, Unavailable Unavailable Dean Guthrie MD Purpose Continuity of Care Document - 01-21-2011 through 2016 Problems Code Diagnosis DOS Provider Status 654.21 654.21 PREV 01-11-2013 [place] [facility] OR W/O MENT ANTEPART COND V27.0 V27.0 01-11-2013 [facility] LIVEBORN 616.10 616.10 09-26-2012 [place] VAGINITIS [facility] 646.63 646.63 09-26-2012 [place] INFECTION-A [facility] 692.71 692.71 09-06-2012 [facility] 643.03 643.03 MILD 06-17-2012 [facility] HYPEREMESIS [facility] -ANTEPAR Allergies, Adverse Reactions, Alerts Type Allergy to [...] ia de te s n re d KE 00 10 1 No TO 09 - RO 30 6- Lo LA 31 20 ng C 40 13 er 10 1 Ac MG ti ve TA BL ET CE 00 10 0 No FA 40 -1 ZO 92 4- Lo LI 58 20 ng N 50 13 er 1 1 GM Ac ti AD ve D- VA N AL SO 00 10 0 No DI 40 -1 UM 97 4- Lo 10 20 ng CH 16 13 er LO 6 RI Ac DE ti ve 0. 9% SO LN LA [address] 40 [...] TA 1 BL Ac ET ti ve SD 59 10 0 No SO 76 -1 AR 25 4- Lo OS 00 20 ng [...] ti 4 ve MG /2 ML AL Vital Signs 09-26-2012 21:04 Name Value Interpretat [...] Range on pH BldCo (01-08-2013 09:45) pH 01-08-2 7.36 7.35-7. complet BldCo 013 UNK 45 ed 09:45 BASIC METABOLIC PANEL (01-08-2013 07:40) Glucose 01-08- 77 74-106 complet 013 mg/dL ed Bld-mCn 07:40 c BUN 01-08-2 5 mg/dL 7-18 complet Bld-mCn 013 ed c 07:40 Creat 01-08-2 0.6 0.6-1.0 complet SerPl-m 013 mg/dL ed Cnc 07:40 ESTIMAT 01-08-2 153 50-200 complet ED 013 ML/MIN ed CREATIN 07:40 INE CLEARAN CE GFR 01-08-2 127 59- complet (ESTIMA 013 ML/MIN ed [...] with AUTO DIFF (01-08-2013 07:40) WBC # 10-14-2 7.8 4.5-13. complet Bld 013 K/MM3 0 ed Auto 07:40 RBC # 10-14-2 5.10 4.2-5.4 complet Bld 013 M/mm3 ed Auto 07:40 Hgb 10-14-2 14.9 12.2-16 complet Bld-mCn 013 g/dL .2 ed c 07:40 Hct Fr 10-14-2 46.7 % 37.0-47 complet Bld 013 .0 ed 07:40 MCV RBC 10-14-2 91.4 fl 82.2-97 complet 013 .8 ed 07:40 MCH RBC 10-14-2 29.2 pg 27-31.2 complet Qn 013 ed Auto 07:40 MEAN 10-14-2 31.9 31.8-35 complet CORPUSC 013 g/dl .4 ed ULAR 07:40 HGB CONC RDW RBC 10-14-2 14.6 % 11.5-17 complet Auto 013 .5 ed 07:40 Platele 10-14-2 150 142-424 complet t Bld 013 K/mm3 ed Ql 07:40 Manual MEAN -14-2 9.6 fl 7.4-10. complet PLATELE 013 4 [...] 5.0-8.5 complet PH 013 ed 20:10 URINE -02-2 NEGATIV NEG complet PROTEIN 013 E mg/dL ed - 20:10 DIPSTIC K URINE 07-02-2 1.0 NEG complet UROBILI 013 E.U./dL ed NOGEN - 20:10 DIPSTIC K URINE 07-02-2 NEGATIV NEG complet NITRATE 013 E ed - 20:10 DIPSTIC K URINE -02-2 1+ NEG complet LEUK 013 ed ESTERAS 20:10 E URINE 07-02-2 5-10 0 complet RBC 013 rbc/hpf ed 20:10 URINE -02-2 3-5 O complet WBC 013 wbc/hpf ed 20:10 URINE --2 TNTC 0-5 complet SQUAMOU 013 #/hpf ed S CELLS 20:10 URINE -02-2 1+ O complet BACTERI 013 ed A 20:10 URINE -02-2 1+ OCC complet MUCUS 013 ed 20:10 URINALYSIS/COMPLETE (06-17-2012 14:50) URINE -23-2 YELLOW YELLOW complet COLOR 013 ed 14:50 URINE -23-2 Sl CLEAR complet APPEARA 013 Cloudy ed NCE 14:50 URINE -23-2 NEGATIV NEG complet GLUCOSE 013 E ed - 14:50 DIPSTIC K URINE -23-2 NEGATIV NEG complet BILIRUB 013 E ed IN - 14:50 DIPSTIC K URINE -23-2 NEGATIV NEG complet KETONE 013 E mg/dL ed 14:50 URINE -23-2 1.025 1.005-1 complet SPECIFI 013 UNK .030 ed C 14:50 GRAVITY URINE -23-2 NEGATIV NEG complet BLOOD 013 E ed 14:50 URINE -23-2 7.0 UNK 5.0-8.5 complet PH 013 ed 14:50 URINE -23-2 NEGATIV NEG complet PROTEIN 013 E mg/dL ed - 14:50 DIPSTIC K URINE 03-23-2 0.2 NEG complet UROBILI 013 E.U./dL ed NOGEN - 14:50 DIPSTIC K URINE -23-2 NEGATIV NEG complet NITRATE 013 E ed - 14:50 DIPSTIC K URINE -23-2 NEGATIV NEG complet LEUK 013 E ed ESTERAS 14:50 E URINE -23-2 OCC O complet WBC 013 wbc/hpf ed 14:50 URINE -23-2 20-50 0-5 complet SQUAMOU 013 #/hpf ed S CELLS 14:50 URINE -23-2 1+ O complet BACTERI 013 ed A [...] 15:58) COLLECT D.BRADF complet OR 011 ORD remediation consultant 15:58 ETHNICI WHITE, complet TY 011 NON-HIS [...] Procedures Procedure DOS Code Location Performer Comment LOW 74.1 [facility] Jesu BRITO Encounters Encounter Start End Date Code Location Performer Type Date Inpatient CASSY Nails MD (IN) 3 01:27 3 18:40 [facility] Emergency STEPHANIE Guthrie MD (ER) 3 19:49 3 21:04 [facility] Emergency STEPHANIE Coleman MD (ER) 3 10:48 3 11:16 [facility] STEPHANIE Carson MD (ER) 3 15:16 3 15:36 [facility]
--- OUTSIDE RECORDS SUMMARY | 2017-02-01 12:59 | External Medical Summary Rpt | CCD ---
Author Author , REJI Organization REJI Address Unknown Phone [email or web address] Team Providers Care Avionics Test Technician Name Role Phone Cipriano Carson MD, Unavailable Unavailable Cipriano Nails MD, Unavailable Unavailable Aldo Coleman MD, Unavailable Unavailable Floresita Guthrie MD, Unavailable Unavailable Dean Guthrie MD Purpose Continuity of Care Document - 01-21-2011 through 2016 Problems Code Diagnosis DOS Provider Status 654.21 654.21 PREV 01-11-2013 [place] [facility] W/ Hospital OR W/O MENT ANTEPART COND V27.0 V27.0 01-11-2013 [facility] LIVEBORN 616.10 616.10 09-26-2012 [place] VAGINITIS [facility] 646.63 646.63 09-26-2012 [place] INFECTION-A [facility] 692.71 692.71 09-06-2012 [facility] 643.03 643.03 MILD 06-17-2012 [facility] HYPEREMESIS [facility] -ANTEPAR Allergies, Adverse Reactions, Alerts Type Allergy [...] TA 1 BL Ac ET ti ve SC 59 10 0 No SO 76 -1 OR 25 4- Lo OS 00 20 ng [...] 15:58) COLLECT D.BRADF complet OR 011 ORD media intern 15:58 ETHNICI WHITE, complet TY 011 NON-HIS [...] DOS Code Location Performer Comment LOW 74.1 [facility] Jesu BRITO Encounters Encounter Start End Date Code Location Performer Type Date Inpatient CASSY Nails MD (IN) 3 01:27 3 18:40 [facility] Emergency STEPHANIE Guthrie MD (ER) 3 19:49 3 21:[address] [facility] Emergency STEPHANIE Coleman MD (ER) 3 10:48 3 11:16 [facility] Emergency STEPHANIE Carson MD (ER) 3 15:16 3 15:36 [facility]
--- OUTSIDE RECORDS SUMMARY | 2017-02-01 13:00 | External Medical Summary Rpt | CCD ---
Author Author , REJI MENDOZA Address Unknown Phone [email or web address] Immunization Name Date Rout CVX Reac Dose [...]
--- OUTSIDE RECORDS SUMMARY | 2017-02-01 13:00 | External Medical Summary Rpt | CCD ---
Author Author [employer] Organization [employer] Address Unknown Phone Unavailable Purpose Continuity of Care Document - through 2016
--- OUTSIDE RECORDS SUMMARY | 2017-02-01 13:00 | External Medical Summary Rpt ---
Author Author REJI Enzo, [employer] Organization [employer] Address Unknown [...] source AM data data data data KIT 11-25-2 No No No No May 05 EXPIRAT [...] data SPECIME URINE No No No No Feb 8 N informa informa informa informa 2013 SOURCE tion in tion in tion in tion in 10:00 source source source source AM data data data data PREGNAN YES No No No No b 8 T informa informa informa informa 2013 [...] MAY HAVE ADVERSE PSYCHO- SOCIAL IMPACT, [facility].\.br \This report contain s [...] source source data data data data KIT 1-31-13 No No No No Sep 25 EXPIRAT [...] Jan 21 TY informa informa informa informa 2011 tion in [...] Notes Date tion ce etation Range COLLECT IFRAH No No No No Jan 21 OR [...] \.br\Jan 21 ia informa informa informa is 2010 gonorrh tion in tion in tion in report 3:58 PM oeae source source source contain rRNA data data data s [Presen patient ce] in Unspeci informa fied tion specime that n by must be Probe & target protect ed in amplifi accorda cation nce method with the Health Insuran ce Portabi lity and Account ability Act.
--- OUTSIDE RECORDS SUMMARY | 2017-02-01 13:00 | External Medical Summary Rpt ---
[...] MAY HAVE ADVERSE PSYCHO- SOCIAL IMPACT, [facility] NG.\.br \This report contain [...]
--- OUTSIDE RECORDS SUMMARY | 2017-02-01 13:00 | External Medical Summary Rpt | CCD ---
Author Author , REJI MENDOZA Address Unknown Phone [email or web address] Immunization Name Date Rout CVX Reac Dose [...]
== END ==
LOC: UTC 12:53
DX: S55.102 Unspecified injury of radial artery at forearm level, left arm (principal)